=== PATIENT | female | born 1960 | race African-American/Black ===

== ENCOUNTER 2016-12-24 20:00 | Emergency (ER) | payer OTHER ==
[~2016-12-24] VITALS: Ht 175.3 cm; Wt 109.0 kg
[~2016-12-24 20:00] MED LIST: ALDACTONE25 MG PO; ASPIRIN81 MG PO; B12-ACTIVE1 MG PO; BABY ASPIRIN81 MG OR; BACTRIM DS1 TAB PO; BIOTIN1000 MCG PO; BUMETANIDE2 MG IN; CARVEDILOL3.125 MG PO; CIPRO XR500 MG PO; COQ-1050 MG PO; COREG12.5 MG OR; COREG25 MG PO; COREG3.125 MG OR; CORLANOR5 MG PO; COZAAR50 MG OR; COZAAR50 MG PO; DIGITEK0.125 MG PO; ENALAPRIL2.5 MG OR; ENALAPRIL2.5 MG PO; FLAGYL500 MG PO; KLOR-CON 1010 ME1 OR; KLOR-CON M2020 MEQ OR; LACTULOS2 XX; LASIX40 MG OR; LASIX40 MG PO; LASIX80 MG OR; LEXAPRO10 MG PO; LOSARTAN POT50 MG PO; LOSARTAN POTASS25 MG PO; MAG OXIDE400 MG PO; METOLAZONE2.5 MG PO; METROGEL VAG0.75 % VA; METRONIDAZOL500 MG PO; NITROSTAT0.4 MG SL; NORCO1 TA1 PO; PREVACID15 M1 PO; PRILOSEC OTC20 MG OR; VITAMIN C500 M1 OR; XANAX0.25 MG OR; XANAX0.5 MG PO; ZOCOR20 MG OR; ZOCOR40 MG OR; ZOFRAN ODT4 MG PO; [UNRECOGNIZED DRUG - OTHER] OR; [UNRECOGNIZED DRUG - OTHER] OR; [UNRECOGNIZED DRUG - OTHER] PO
[2016-12-24 20:36] LABS: HEMATOCRIT 39.6 % (37.0-47.0); IMMATURE GRANULOCYTES 0.3 % (0.0-1.0); MEAN CORPUSCULAR HGB 29.9 pG CALC (26.0-32.0); MEAN CORPUSCULAR HGB CONC 32.8 g/L CALC (32.0-36.0); NEUT# 4.79 thou/uL (2.00-7.15); RED BLOOD COUNT 4.35 mill/uL (4.20-5.60); RED CELL DISTRI WIDTH 14.8 % (11.5-15.5)
[2016-12-24 20:45] LABS: ALBUMIN 4.3 g/dL (3.2-5.0); ALKALINE PHOSPHATASE 84 u/l (38-126); ANION GAP 17 (6-22 (CALC)); BILIRUBIN, TOTAL 0.5 mg/dL (0.0-1.4); BUN 15 mg/dL (7-17); BUN/CREATININE RATIO 17 (12-20 (CALC)); CALCIUM 9.2 mg/dL (8.4-10.2); CARBON DIOXIDE 27 mmol/l (22-30); CHLORIDE 104 mmol/l (95-108); CREATININE 0.9 mg/dL (0.5-1.0); GFR > 60 ML/MIN (>=60 (CALC)); GFR FOR AFR.AMER. > 60 ML/MIN (>=60 (CALC)); GLUCOSE 92 mg/dL (65-105); POTASSIUM 4.3 mmol/l (3.5-5.1); SGOT/AST 29 u/l (14-36); SGPT/ALT 37 u/l (9-52); SODIUM 143 mmol/l (137-146); TOTAL PROTEIN 8.1 g/dL (6.3-8.2)
[2016-12-24 20:57] LABS: MYOGLOBIN 21 ng/mL (0 - 62)
[2016-12-24 20:58] LABS: PROTHROMBIN TIME 11.3 SECONDS (9.0-12.5)
[2016-12-24 22:06] LABS: URINE BILIRUBIN - DIPSTICK NEGATIVE (NEGATIVE); URINE BLOOD DIPSTICK NEGATIVE (NEGATIVE); URINE CLARITY CLEAR; URINE COLOR YELLOW; URINE GLUCOSE - DIPSTICK NEGATIVE (NEGATIVE); URINE KETONE NEGATIVE (NEGATIVE); URINE LEUK ESTERASE NEGATIVE (NEGATIVE); URINE NITRITE - DIPSTICK NEGATIVE (Negative); URINE PH 5.5 (4.5-8.0); URINE PROTEIN - DIPSTICK NEGATIVE (NEG-TRACE); URINE SPECIFIC GRAVITY 1.025; URINE UROBILINOGEN - DIPSTICK 0.2 E.U./dL (0.2)
[2016-12-24] MEDS ORDERED: BUMETANIDE1 MG PO (22:42)
[2016-12-25 01:25] VITALS: BP 110/73
== END 2016-12-25 01:26 | disposition short-term general hospital (02) | DRG 69 ==
LOC: ED 20:00
DX: G45.9 Transient cerebral ischemic attack, unspecified (principal); I11.0 Hypertensive heart disease with heart failure; I50.9 Heart failure, unspecified; K21.9 Gastro-esophageal reflux disease without esophagitis; K44.9 Diaphragmatic hernia without obstruction or gangrene; F41.9 Anxiety disorder, unspecified; Z95.810 Presence of automatic (implantable) cardiac defibrillator

== ENCOUNTER 2017-02-23 19:53 | Emergency (ER) | payer OTHER ==
[~2017-02-23] VITALS: Ht 175.3 cm; Wt 106.0 kg
[~2017-02-23 19:53] MED LIST changes: +BUMETANIDE1 MG PO
[2017-02-23 20:25] VITALS: BP 106/55
== END 2017-02-23 20:25 | disposition home or self-care (01) | DRG 951 ==
LOC: ED 19:53
DX: Z20.818 Contact with and (suspected) exposure to other bacterial communicable diseases (principal); I11.0 Hypertensive heart disease with heart failure; I50.9 Heart failure, unspecified; K21.9 Gastro-esophageal reflux disease without esophagitis; K44.9 Diaphragmatic hernia without obstruction or gangrene; Z95.810 Presence of automatic (implantable) cardiac defibrillator

== ENCOUNTER 2017-10-18 13:17 | Inpatient (IN) | payer OTHER ==
[~2017-10-18] VITALS: Ht 175.3 cm; Wt 101.6 kg
--- NOTE | 2017-10-18 13:18 | NUR ---
PT REFUSED WHEELCHAIR AND AMBULATED TO ROOM WITH A STEADY GAIT.
[2017-10-18 14:13] LABS: HEMATOCRIT 38.9 % (37.0-47.0); HEMOGLOBIN 12.6 g/dl (12.0-16.0); IMMATURE GRANULOCYTES 0.3 % (0.0-1.0); MEAN CELL VOLUME 93.5 fL CALC (80.0-100.0); MEAN CORPUSCULAR HGB 30.3 pG CALC (26.0-32.0); MEAN CORPUSCULAR HGB CONC 32.4 g/L CALC (32.0-36.0); NEUT# 5.82 thou/uL (2.00-7.15); RED BLOOD COUNT 4.16 mill/uL (4.20-5.60); RED CELL DISTRI WIDTH 15.5 % (11.5-15.5)
--- NOTE | 2017-10-18 14:15 | NUR ---
JAGDISH spoke with regarding admission status d/t Afib RVR. CM asked if the patient will require any cardiac drips and denied any need at this time. CM advised OBS for the admission, to which voiced agreement.
[2017-10-18 14:22] LABS: ALBUMIN 3.9 g/dL (3.2-5.0); ANION GAP 18 (6-22 (CALC)); BILIRUBIN, TOTAL 0.6 mg/dL (0.0-1.4); BUN 24 mg/dL (7-17); BUN/CREATININE RATIO 27 (12-20 (CALC)); CARBON DIOXIDE 26 mmol/l (22-30); CHLORIDE 103 mmol/l (95-108); CREATININE 0.9 mg/dL (0.5-1.0); GFR > 60 ML/MIN (>=60 (CALC)); GFR FOR AFR.AMER. > 60 ML/MIN (>=60 (CALC)); POTASSIUM 3.8 mmol/l (3.5-5.1); SGPT/ALT 67 u/l (9-52); SODIUM 142 mmol/l (137-146); TOTAL PROTEIN 7.9 g/dL (6.3-8.2)
[2017-10-18 14:23] LABS: ALKALINE PHOSPHATASE 121 u/l (38-126); SGOT/AST 72 u/l (14-36)
--- NOTE | 2017-10-18 14:23 | NUR ---
PT PROVIDED CARDIZEM AND LOVENOX ORDERED, RATE IMPROVED TO 80-110 ALTHOUGH IT REMAINS AFIB.
[2017-10-18 14:33] LABS: MYOGLOBIN 26 ng/mL (0 - 62)
[2017-10-18] MEDS ORDERED: POT CHLORIDE10 ME5 PO (14:38)
--- NOTE | 2017-10-18 15:40 | NUR ---
DR COHEN IN TO SEE PT IN ROOM.
--- NOTE | 2017-10-18 17:10 | NUR ---
female pt received to med surg room 263 via wc accompanied by Willi Price, RN and grandson in stable condition; ambulatory to scale then bed with steady gait; admission assessment completed at this time; pt alert and oriented; c/c of right chest pain radiating to epigastric area then left chest associated with palpitations; pt admits to nausea, vomiting and diaphoreis; resp even and unlabored; exertional sob noted; lungs clear bilat; skin color wnl; ra; hr irreg; weak pedal pulses; 1+ edema noted to lle; tele monitor intact; abd soft with bs present; tenderness noted to epigastric area; no bm noted per life underwriter; pt admits to voiding without pain or burning; no urine to inspect at this time; bsc; #20 in lw saline locked; no redness or edema noted at site; skin intact; pt oriented to bed and call light system; plan of care/ meds explained; call light within reach; will continue to monitor
--- NOTE | 2017-10-18 17:10 | NUR ---
PT TAKEN TO ROOM 263 WITHOUT INCIDENT, REPORT WAS TO CHRISTINE.
--- NOTE | 2017-10-18 17:40 | NUR ---
per GEO Allen, tele reading afib/pvc 78 on monitor
[2017-10-18 18:05] VITALS: BP 104/74
[2017-10-18 19:35] VITALS: BP 112/71
--- NOTE | 2017-10-18 20:18 | NUR ---
PT SITTING ON BSC WITH FAMILY AT BEDSIDE. RESP EVEN AND UNLABORED. LUNGS CLEAR BILAT. TELE IN PLACE. ABD SOFT; ACTIVE BOWEL SOUNDS NOTED. +1 EDEMA LEFT LEG. PEDAL PULSES PALPATED BILAT. IV LW PATENT; FLUSHED WITHOUT DIFFICULTY. PT OFFERS NO COMPLAINTS. SAFETY PREACUTIONS REINFORCED. FREQUENT ROUNDS MADE; CALL LIGHT WITHIN REACH.
[2017-10-18 21:48] VITALS: BP 112/75
[2017-10-18 22:46] VITALS: BP 95/72
[2017-10-19] VITALS: BP 87/46
--- NOTE | 2017-10-19 00:30 | NUR ---
PT UP TO BSC. RESP EVEN AND UNLABORED. PT DENIES ANY PAIN OR DISCOMFORT. TELE IN PLACE. CALL LIGHT WITHIN REACH.
[2017-10-19 01:20] VITALS: BP 124/62
[2017-10-19 02:00] VITALS: BP 124/62
--- NOTE | 2017-10-19 04:30 | NUR ---
ASSESSMENT UNCHANGED. PT RESTING IN BED WATCHING TV. RESP EVEN AND UNLABORED. TELE IN PLACE. PT OFFERS NO COMPLAINTS AT THIS TIME. CALL LIGHT WITHIN REACH.
[2017-10-19 04:50] VITALS: BP 111/58
--- NOTE | 2017-10-19 07:00 | NUR ---
SHIFT CHANGE REPORT FROM ED PT AWAKE ALERT AND ORIENTED SITTING UP ON BSC, DENIES PAIN/DISCOMFORT AT THIS TIME, ALL NEEDS ADDRESSED, CALL THOMAS IN REACH.
[2017-10-19 07:56] LABS: HEMATOCRIT 39.4 % (37.0-47.0); HEMOGLOBIN 12.6 g/dl (12.0-16.0); IMMATURE GRANULOCYTES 0.3 % (0.0-1.0); MEAN CELL VOLUME 93.4 fL CALC (80.0-100.0); MEAN CORPUSCULAR HGB 29.9 pG CALC (26.0-32.0); NEUT# 4.18 thou/uL (2.00-7.15); RED BLOOD COUNT 4.22 mill/uL (4.20-5.60); RED CELL DISTRI WIDTH 15.3 % (11.5-15.5)
[2017-10-19 07:59] LABS: ANION GAP 15 (6-22 (CALC)); BUN 18 mg/dL (7-17); BUN/CREATININE RATIO 19 (12-20 (CALC)); CARBON DIOXIDE 32 mmol/l (22-30); CHLORIDE 98 mmol/l (95-108); CREATININE 0.9 mg/dL (0.5-1.0); GFR > 60 ML/MIN (>=60 (CALC)); GFR FOR AFR.AMER. > 60 ML/MIN (>=60 (CALC)); SODIUM 141 mmol/l (137-146)
[2017-10-19 08:01] LABS: MAGNESIUM 1.4 mg/dL (1.6-2.3)
[2017-10-19 08:55] VITALS: BP 98/60
--- NOTE | 2017-10-19 12:00 | NUR ---
PT RESTING IN BED, DR DAVID HERE ROUNDING AND INFORMED PT OF POC, PT STATED UNDERSTANDING. PT TRANSPORTED OFF UNIT FOR IMAGING PROCEDURE AND NOW BACK IN ROOM, INFORMED OF NEW MEDS, RESTING AGAIN, CALL THOMAS IN REACH.
[2017-10-19 15:56] VITALS: BP 89/57
--- NOTE | 2017-10-19 16:18 | NUR ---
RESTING/SLEEPING AT THIS TIME, WAS AWAKE MOST OF HS, WILL CONTINUE TO MONITOR.
--- NOTE | 2017-10-19 19:00 | NUR ---
REPORT RECEIVED FROM SELENA KING. PT ASLEEP, RESP EVEN AND UNLABORED. BED IN LOW POSITION, CALL LIGHT IN REACH.
--- NOTE | 2017-10-19 19:30 | NUR ---
PT AWAKE, SITTIN UP IN BED. DISCUSSED TIMES ON BUMEX ORDER. PT STATES SHE DOESN'T WANT UNTIL BEDTIME. CALL TO PHARMACY BY SELENA KING TO CHANGE TIMES TO 0900 AND 2100.
--- NOTE | 2017-10-19 19:58 | NUR ---
PT REQUESTED TO [facility] 2099 & 899, NITALISON
[2017-10-19 20:12] LABS: ALBUMIN 3.7 g/dL (3.2-5.0); BILIRUBIN, TOTAL 0.6 mg/dL (0.0-1.4); TOTAL PROTEIN 7.3 g/dL (6.3-8.2)
--- NOTE | 2017-10-19 21:03 | NUR ---
IV FLUSHED. PT STATES [facility] GOING IN. REQUESTED TO KEEP THIS IV. SALINE AND MED PUSHED SLOWLY. PT STATES THIS IS OK. PT ANTICIPATES GOING HOME TOMORROW AND DOES NOT WISH TO HAVE ANOTHER IV PLACED UNLESS COMPLETELY NECESSARY.
--- NOTE | 2017-10-20 | NUR ---
RECEIVED PRINTOUT FROM ER WITH ARRHYTHMIA EVENT FOR VTACH. WENT TO CHECK ON PATIENT, SITTING UP AT BEDSIDE WITH TRAY TABLE IN FRONT. SELENA JAMIL AND SELENA WHYTE WERE IN WITH PATIENT. BP 87/46 HR 69. PT STATES SHE LIVES IN THE ZONE WITH HER B/P AND IT IS FREQUENTLY LOW. SHE IS ALERT AND ORIENTED. DENIES PAIN OR PRESSURE. PT STATES SHE WILL GET BACK IN BED SHORTLY. CALL LIGHT IN REACH.
--- NOTE | 2017-10-20 01:51 | NUR ---
XANAX GIVEN PER MAR. PT UP STATES HER MIND IS RACING. REQUESTED AND GIVEN XANAX PER ORDER IN HOPES TO SLEEP.
--- NOTE | 2017-10-20 04:00 | NUR ---
VS AND FOCUS ASSESSMENT CHARTED. PT DENIES ANY NEEDS OR PAIN AT THIS TIME.
[2017-10-20 04:05] VITALS: BP 97/44
--- NOTE | 2017-10-20 05:00 | NUR ---
UPPER LEFT BEDRAIL DOWN DUE TO PATIENT REQUEST.
--- NOTE | 2017-10-20 07:00 | NUR ---
SHIFT CHANGE REPORT FROM MARINA, PT AWAKE ALERT AND ORIENTED, NO C/O DISCOMFORT, WANTS TO FIND OUT WHEN SHE WILL BE GOING HOME, ADVISED MD WILL ADDRESS HER CONCERNS WHEN HE GETS HERE, TELE MONITOR IN PLACE, WILL CONTINUE TO MONITOR.
--- NOTE | 2017-10-20 07:00 | NUR ---
REPORT TO NEXT SHIFT. PT ASLEEP, RESP EVEN/UNLABORED. CALL LIGHT IN REACH.
[2017-10-20 09:17] VITALS: BP 87/64
--- NOTE | 2017-10-20 10:53 | NUR ---
HERE ROUNDING, TOLD PT OF POC, WILL CONTINUE TO MONITOR.
[2017-10-20 11:45] VITALS: BP 102/66
--- NOTE | 2017-10-20 13:26 | NUR ---
SLEEPING AT THIS TIME, NO SIGN DISCOMFORT, CALL THOMAS IN REACH.
[2017-10-20 15:40] VITALS: BP 92/49
--- NOTE | 2017-10-20 19:00 | NUR ---
REPORT RECEIVED FROM SELENA KING. PT AWAKE, SITTING UP TALKING TO FAMILY AT BEDSIDE. CALL LIGHT IN REACH.
[2017-10-20 19:15] VITALS: BP 89/60
--- NOTE | 2017-10-20 20:30 | NUR ---
DUE TO B/P, HELD COREG AND AMIODARONE AT THIS TIME.
[2017-10-21 00:10] VITALS: BP 85/52
--- NOTE | 2017-10-21 00:13 | NUR ---
DUE TO HYPOTENSION, COREG AND AMIODARONE HELD FOR 2100 MEDS TO STAGGER AND REEVALUATE. MIDNIGHT BP STILL HYPOTENSIVE WITH PT STILL AFIB/PACED AT 72 PER FLAGMAN. PT GIVEN AMIODARONE AT THIS TIME STILL HOLDING COREG. PT STATED PREVIOUSLY SHE FELT LIKE HER HEART WAS NOT KEEPING UP. SHE WAS UNSURE HOW TO EXPLAIN BUT STATED SHE COULD FEEL THE DIFFERENCE TODAY.
[2017-10-21 04:15] VITALS: BP 103/59
[2017-10-21 05:23] LABS: HEMATOCRIT 42.8 % (37.0-47.0); HEMOGLOBIN 13.3 g/dl (12.0-16.0); IMMATURE GRANULOCYTES 0.5 % (0.0-1.0); MEAN CELL VOLUME 96.2 fL CALC (80.0-100.0); MEAN CORPUSCULAR HGB 29.9 pG CALC (26.0-32.0); MEAN CORPUSCULAR HGB CONC 31.1 g/L CALC (32.0-36.0); NEUT# 6.72 thou/uL (2.00-7.15); RED BLOOD COUNT 4.45 mill/uL (4.20-5.60); RED CELL DISTRI WIDTH 15.4 % (11.5-15.5)
[2017-10-21 05:37] LABS: BILIRUBIN, TOTAL 0.6 mg/dL (0.0-1.4); CREATININE 1.3 mg/dL (0.5-1.0); MAGNESIUM 1.5 mg/dL (1.6-2.3); POTASSIUM 4.1 mmol/l (3.5-5.1); TOTAL PROTEIN 7.9 g/dL (6.3-8.2)
--- NOTE | 2017-10-21 06:23 | NUR ---
ENTERED ROOM TO FLUSH IV. PT DROWSY BUT AWAKE. STATES SHE IS GETTING SOME REST. DENIES PAIN/NEEDS AT THIS TIME.
--- NOTE | 2017-10-21 07:01 | NUR ---
BEDSIDE REPORT RECEIVED BY AMIRA. PT IS RESTING ON HER LEFT SIDE. PT DENIES NEEDS AT THIS TIME. CALL LIGHT IN REACH.
--- NOTE | 2017-10-21 08:00 | NUR ---
ASSESSMENT DONE AND TELE IN PLACE . RESPS EVEN AND UNLABORED. #22 LFA THAT APPEARS HEALTHY. PT DENIES PAIN AT THIS TIME. PT STATED THAT SHE JUST FEELS WEAK. SAFETY PRECAUTIONS REINFORCED ROSSI CALL LIGHT IN REACH.
--- NOTE | 2017-10-21 08:30 | NUR ---
NOTIFIED LIO ABOUT PT BP 90/51 AND IF SHE WANTED FOR ME TO GIVE COREG. SHE STATED TO RECHECK PT BP IN HOUR.
[2017-10-21 10:46] VITALS: BP 90/48
--- NOTE | 2017-10-21 11:29 | NUR ---
RECHECK PT BP 90/48 AND BARBIE BECERRA STATED TO GIVE COREG TO PT.
--- NOTE | 2017-10-21 12:00 | NUR ---
PT IS SITTING IN THE SIDE OF THE BED EATING HER LUNCH AND VISITING WITH FAMILY IN ROOM. PT DENIES NEEDS AT THIS TIME. CALL LIGHT IN REACH.
[2017-10-21 12:04] VITALS: BP 101/45
[2017-10-21 15:42] VITALS: BP 88/38
--- NOTE | 2017-10-21 16:00 | NUR ---
PT IS SITTING IN THE SIDE OF THE BED WITH NO S/S OF DISTRESS. PT DENIES PAIN. PT STATED THAT SHE JUST FEELS TIRED AND WEAK. PT DENIES ANY NEEDS AT THIS TIME. CALL LIGHT IN REACH.
--- NOTE | 2017-10-21 19:00 | NUR ---
RECEIVED CHANGE OF SHIFT REPORT FROM SELENA LEA. PATIENT ALERT AND ORIENTED AND LYING IN BED. GOOD AFFECT. DENIES PAIN. LUNG SOUNDS CLEAR BILATERALLY ON AUSCULTATION. NO APPARENT ACUTE DISTRESS OR DISCOMFORT NOTED. WILL CONTINUE TO MONITOR.
[2017-10-21 20:45] VITALS: BP 100/59
--- NOTE | 2017-10-21 22:30 | NUR ---
PT REQUESTED NOT TO BE AWAKEN AT MIDNIGHT FOR VS.
--- NOTE | 2017-10-22 | NUR ---
PATIENT RESTING QUIETLY WITH EYES CLOSED AND APPEARS TO BE ASLEEP. NO APPARENT ACUTE DISTRESS NOTED.
--- NOTE | 2017-10-22 04:00 | NUR ---
PT SLEPT WELL DURING THE NIGHT. NO VOICED COMPLAINTS. NO APPARENT ACUTE CHANGES NOTED IN PT'S CONDITION. WILL CONTINUE TO MONITOR.
[2017-10-22 04:45] LABS: HEMATOCRIT 40.8 % (37.0-47.0); HEMOGLOBIN 13.1 g/dl (12.0-16.0); MEAN CELL VOLUME 94.4 fL CALC (80.0-100.0); MEAN CORPUSCULAR HGB 30.3 pG CALC (26.0-32.0); MEAN CORPUSCULAR HGB CONC 32.1 g/L CALC (32.0-36.0); RED BLOOD COUNT 4.32 mill/uL (4.20-5.60); RED CELL DISTRI WIDTH 15.3 % (11.5-15.5)
[2017-10-22 05:01] LABS: ANION GAP 15 (6-22 (CALC)); BUN 21 mg/dL (7-17); BUN/CREATININE RATIO 22 (12-20 (CALC)); CARBON DIOXIDE 32 mmol/l (22-30); CHLORIDE 97 mmol/l (95-108); GFR 57 ML/MIN (>=60 (CALC)); GFR FOR AFR.AMER. > 60 ML/MIN (>=60 (CALC)); POTASSIUM 3.8 mmol/l (3.5-5.1); SODIUM 141 mmol/l (137-146)
[2017-10-22 05:06] LABS: MAGNESIUM 2.2 mg/dL (1.6-2.3)
[2017-10-22 05:50] VITALS: BP 98/50
--- NOTE | 2017-10-22 07:24 | NUR ---
REPORT RECEIVED FROM SELENA PADRON. PT SITTING UPRIGHT IN BED. DENIES PAIN. REPORTS ANXIETY. MEDICATIONS REVIEWED. PLAN OF CARE DISCUSSED. REPORTING OF CONCERNS ENCOURAGED. CALL LIGHT REVIEWED AND IN REACH. PT STATES UNDERSTANDING.
[2017-10-22 07:26] VITALS: BP 86/61
--- NOTE | 2017-10-22 10:02 | NUR ---
TRANSFER TO [facility] INITIATED AT THIS TIME PER DR. ROCHA'S ORDER. SPOKE WITH SELENA LOVELACE AND SELENA JASSO. ACCEPTING PHYSICIAN DR. REED. FACE SHEET FAXED TO [facility] AT [phone].
--- NOTE | 2017-10-22 10:27 | NUR ---
PT REFUSING BUMEX AT THIS TIME. REQUESTING TO RECEIVED MED AT 1800. PHARMACY NOTIFIED.
--- NOTE | 2017-10-22 10:29 | NUR ---
DR. ROCHA IN TO SEE PT.
[2017-10-22 12:23] VITALS: BP 92/58
--- NOTE | 2017-10-22 12:48 | NUR ---
PT SITTING UPRIGHT IN BED. MULTIPLE VISITORS IN AND OUT OF ROOM. PT UPDATED REGARDING TRANSFER AND AWAITING BED ASSIGNMENT.
--- NOTE | 2017-10-22 13:35 | NUR ---
PT VOMITING IN TRASH CAN, NOTIFIED BY PT'S FAMILY MEMBER. ZOFRAN ADMINISTERED IV. WILL MONITOR FOR EFFECTIVENESS.
--- NOTE | 2017-10-22 15:00 | NUR ---
PT REPORTS RELIEF OF NAUSEA.
[2017-10-22 15:46] VITALS: BP 94/64
--- NOTE | 2017-10-22 17:47 | NUR ---
NO COMPLAINTS AT THIS TIME. BUMEX IV ADMINISTERED. FALL PRECAUTIONS REINFORCED. PT STATES UNDERSTANDING.
--- NOTE | 2017-10-22 18:33 | NUR ---
BED ASSIGNMENT RECEIVED FROM SELENA JASSO AT [facility]. [address]. NUMBER FOR REPORT IS [phone].
--- NOTE | 2017-10-22 18:34 | NUR ---
SPOKE WITH NASREEN AT [facility] TRANSPORT. ESTIMATED TIME OF HAND TURNER IS 1854.
--- NOTE | 2017-10-22 19:08 | NUR ---
PT LEFT FLOOR VIA STRETCHER ACCOMPANIED BY [facility]SP[facility] X 2 STAFF MEMBERS.
--- NOTE | 2017-10-22 19:24 | NUR ---
REPORT CALLED TO SELENA BERTRAND AT [facility].
== END 2017-10-22 19:08 | disposition short-term general hospital (02) | DRG 308 ==
LOC: ED 13:17 → ED-I 13:52 → ED 15:17 → MS2 15:18
PROVIDERS: Emergency Medicine; Internal Medicine; Nurse Practitioner Family; ADMIT Internal Medicine; ATTEND Internal Medicine
DX: I48.91 Unspecified atrial fibrillation (principal); I50.23 Acute on chronic systolic (congestive) heart failure; N17.9 Acute kidney failure, unspecified; I42.0 Dilated cardiomyopathy; R16.0 Hepatomegaly, not elsewhere classified; I95.9 Hypotension, unspecified; E83.42 Hypomagnesemia; F32.9 Major depressive disorder, single episode, unspecified; E11.9 Type 2 diabetes mellitus without complications; G47.30 Sleep apnea, unspecified; E66.9 Obesity, unspecified; K64.8 Other hemorrhoids; K59.00 Constipation, unspecified; Z95.810 Presence of automatic (implantable) cardiac defibrillator; Z86.73 Personal history of transient ischemic attack (TIA), and cerebral infarction without residual deficits; Z68.32 Body mass index [BMI] 32.0-32.9, adult
CPT/HCPCS: J1160; J1650; J3475

== ENCOUNTER 2018-07-30 15:27 | Emergency (ER) | payer OTHER ==
[~2018-07-30] VITALS: Ht 175.3 cm; Wt 100.0 kg
[~2018-07-30 15:27] MED LIST changes: +ELIQUIS5 MG PO; +LIPITOR20 M1 PO; +MIRALAX3350 N1 PO; +POT CHLORIDE10 ME5 PO; +ZOLOFT50 MG PO
[2018-07-30] MEDS ORDERED: EMLA CREAM5 GM/TUBE EX (16:30)
[2018-07-30] MEDS ORDERED: PROCTOCARE2.5 % RE (16:30)
[2018-07-30] MEDS ORDERED: BACTRIM DS1 TAB PO (16:30)
[2018-07-30 16:45] VITALS: BP 151/88
== END 2018-07-30 17:13 | disposition home or self-care (01) | DRG 395 ==
LOC: ED 15:27
DX: K64.4 Residual hemorrhoidal skin tags (principal); L72.0 Epidermal cyst; I11.0 Hypertensive heart disease with heart failure; I50.9 Heart failure, unspecified; Z86.73 Personal history of transient ischemic attack (TIA), and cerebral infarction without residual deficits; K21.9 Gastro-esophageal reflux disease without esophagitis; Z95.810 Presence of automatic (implantable) cardiac defibrillator

== ENCOUNTER → 2018-08-15 | Outpatient (REF) | payer OTHER ==
[~2018-08-15] MED LIST changes: +EMLA CREAM5 GM/TUBE EX; +KLOR-CON M2020 MEQ PO; +PEPCID20 MG PO; +PHENERGAN25 MG/TAB PO; +PROCTOCARE2.5 % RE; +XANAX0.25 MG PO; +ZOFRAN4 M1 PO
[2018-08-15 04:32] LABS: HEMATOCRIT 42.5 % (37.0-47.0); HEMOGLOBIN 13.6 g/dl (12.0-16.0); IMMATURE GRANULOCYTES 0.2 % (0.0-5.0); MEAN CELL VOLUME 98.8 fL CALC (80.0-100.0); MEAN CORPUSCULAR HGB 31.6 pG CALC (26.0-32.0); NEUT# 6.05 thou/uL (2.00-7.15); RED BLOOD COUNT 4.3 mill/uL (4.20-5.60); RED CELL DISTRI WIDTH 15.2 % (11.5-15.5)
[2018-08-15 04:40] LABS: ALBUMIN 3.7 g/dL (3.2-5.0); ALKALINE PHOSPHATASE 94 u/l (38-126); ANION GAP 13 (6-22 (CALC)); BILIRUBIN, TOTAL 1.1 mg/dL (0.0-1.4); BUN 20 mg/dL (7-17); BUN/CREATININE RATIO 19 (12-20 (CALC)); CARBON DIOXIDE 30 mmol/l (22-30); CHLORIDE 101 mmol/l (95-108); CREATININE 1.1 mg/dL (0.5-1.0); GFR 51 ML/MIN (>=60 (CALC)); GFR FOR AFR.AMER. > 60 ML/MIN (>=60 (CALC)); POTASSIUM 3.6 mmol/l (3.5-5.1); SGOT/AST 32 u/l (14-36); SODIUM 141 mmol/l (137-146); TOTAL PROTEIN 7.4 g/dL (6.3-8.2)
== END | disposition home or self-care (01) | DRG 395 ==
LOC: LABSPEC 03:48
PROVIDERS: ATTEND Internal Medicine
DX: K64.9 Unspecified hemorrhoids (principal)

== ENCOUNTER 2018-08-21 22:09 | Emergency (ER) | payer OTHER ==
[~2018-08-21] VITALS: Ht 175.3 cm; Wt 98.0 kg
[~2018-08-21 22:09] MED LIST changes: -KLOR-CON M2020 MEQ PO; -PEPCID20 MG PO; -PHENERGAN25 MG/TAB PO; -XANAX0.25 MG PO; -ZOFRAN4 M1 PO
[2018-08-21 22:57] LABS: HEMATOCRIT 40.4 % (37.0-47.0); HEMOGLOBIN 13.1 g/dl (12.0-16.0); IMMATURE GRANULOCYTES 0.3 % (0.0-5.0); MEAN CELL VOLUME 96.9 fL CALC (80.0-100.0); MEAN CORPUSCULAR HGB 31.4 pG CALC (26.0-32.0); MEAN CORPUSCULAR HGB CONC 32.4 g/L CALC (32.0-36.0); NEUT# 4.48 thou/uL (2.00-7.15); RED BLOOD COUNT 4.17 mill/uL (4.20-5.60); RED CELL DISTRI WIDTH 14.8 % (11.5-15.5)
[2018-08-21 23:14] LABS: AMYLASE 50 u/l (30-110); LIPASE 69 u/l (23-300)
[2018-08-21 23:16] LABS: ALKALINE PHOSPHATASE 101 u/l (38-126); ANION GAP 16 (6-22 (CALC)); BILIRUBIN, TOTAL 1.1 mg/dL (0.0-1.4); BUN 20 mg/dL (7-17); BUN/CREATININE RATIO 20 (12-20 (CALC)); CARBON DIOXIDE 27 mmol/l (22-30); CHLORIDE 100 mmol/l (95-108); GFR 57 ML/MIN (>=60 (CALC)); GFR FOR AFR.AMER. > 60 ML/MIN (>=60 (CALC)); MAGNESIUM 1.7 mg/dL (1.6-2.3); POTASSIUM 3.7 mmol/l (3.5-5.1); SGOT/AST 55 u/l (14-36); SODIUM 139 mmol/l (137-146); TOTAL PROTEIN 7.5 g/dL (6.3-8.2)
[2018-08-21 23:27] LABS: MYOGLOBIN 39 ng/mL (0 - 62)
[2018-08-22] MEDS ORDERED: BUMETANIDE1 MG PO (00:44)
[2018-08-22] MEDS ORDERED: XANAX0.25 MG PO (00:44)
[2018-08-22] MEDS ORDERED: ZOFRAN4 M1 PO (00:46)
[2018-08-22] MEDS ORDERED: PHENERGAN25 MG/TAB PO (01:08)
[2018-08-22 02:00] VITALS: BP 101/69
[2018-08-22] MEDS ORDERED: KLOR-CON M2020 MEQ PO (09:35)
[2018-08-22] MEDS ORDERED: PEPCID20 MG PO (09:35)
[2018-08-22] MEDS ORDERED: LIPITOR20 M1 PO (09:35)
== END 2018-08-22 02:00 | disposition home or self-care (01) | DRG 293 ==
LOC: ED 22:09
PROVIDERS: Family Medicine
DX: I11.0 Hypertensive heart disease with heart failure (principal); I50.810 Right heart failure, unspecified; I42.8 Other cardiomyopathies; K21.9 Gastro-esophageal reflux disease without esophagitis; Z95.810 Presence of automatic (implantable) cardiac defibrillator; Z86.73 Personal history of transient ischemic attack (TIA), and cerebral infarction without residual deficits

== ENCOUNTER → 2018-08-22 | Outpatient (REF) | payer OTHER ==
[~2018-08-22] MED LIST changes: +KLOR-CON M2020 MEQ PO; +PEPCID20 MG PO; +PHENERGAN25 MG/TAB PO; +XANAX0.25 MG PO; +ZOFRAN4 M1 PO
[2018-08-22 09:28] VITALS: BP 105/61
== END | disposition home or self-care (01) | DRG 395 ==
LOC: FIOURUCCI 09:08 → FIORUCCI 09:08 → FIOURUCCI 09:30
PROVIDERS: ATTEND Surgery
DX: K64.8 Other hemorrhoids (principal); R14.0 Abdominal distension (gaseous); I10 Essential (primary) hypertension; Z95.810 Presence of automatic (implantable) cardiac defibrillator

== ENCOUNTER 2018-09-02 07:00 | Emergency (ER) | payer OTHER ==
[~2018-09-02] VITALS: Ht 175.3 cm; Wt 100.0 kg
[2018-09-02 07:32] LABS: GFR 42 ML/MIN (>=60 (CALC)); GFR FOR AFR.AMER. 51 ML/MIN (>=60 (CALC))
[2018-09-02 07:47] LABS: HEMATOCRIT 43.5 % (37.0-47.0); HEMOGLOBIN 13.6 g/dl (12.0-16.0); IMMATURE GRANULOCYTES 0.4 % (0.0-5.0); MEAN CELL VOLUME 97.8 fL CALC (80.0-100.0); MEAN CORPUSCULAR HGB 30.6 pG CALC (26.0-32.0); MEAN CORPUSCULAR HGB CONC 31.3 g/L CALC (32.0-36.0); NEUT# 5.13 thou/uL (2.00-7.15); RED BLOOD COUNT 4.45 mill/uL (4.20-5.60); RED CELL DISTRI WIDTH 14.6 % (11.5-15.5)
[2018-09-02 07:51] LABS: ALBUMIN 4.2 g/dL (3.2-5.0); ALKALINE PHOSPHATASE 106 u/l (38-126); ANION GAP 15 (6-22 (CALC)); BILIRUBIN, TOTAL 1.4 mg/dL (0.0-1.4); BUN 25 mg/dL (7-17); BUN/CREATININE RATIO 20 (12-20 (CALC)); CARBON DIOXIDE 29 mmol/l (22-30); CHLORIDE 99 mmol/l (95-108); CREATININE 1.2 mg/dL (0.5-1.0); LIPASE 58 u/l (23-300); POTASSIUM 3.9 mmol/l (3.5-5.1); SGOT/AST 41 u/l (14-36); SODIUM 139 mmol/l (137-146); TOTAL PROTEIN 7.9 g/dL (6.3-8.2)
[2018-09-02 10:31] VITALS: BP 103/56
== END 2018-09-02 10:27 | disposition short-term general hospital (02) | DRG 293 ==
LOC: ED 07:00
PROVIDERS: Family Medicine
DX: I11.0 Hypertensive heart disease with heart failure (principal); I50.9 Heart failure, unspecified; R10.11 Right upper quadrant pain; Z86.73 Personal history of transient ischemic attack (TIA), and cerebral infarction without residual deficits; Z95.810 Presence of automatic (implantable) cardiac defibrillator
CPT/HCPCS: Q9967; S0164

== ENCOUNTER → 2018-09-11 | Outpatient (REF) | payer OTHER ==
[2018-09-11 22:40] LABS: ALBUMIN 4.6 g/dL (3.2-5.0); BILIRUBIN, TOTAL 1.1 mg/dL (0.0-1.4); CREATININE 1.2 mg/dL (0.5-1.0); POTASSIUM 4.1 mmol/l (3.5-5.1)
== END | disposition home or self-care (01) | DRG 293 ==
LOC: LABREF 21:43
PROVIDERS: ATTEND Nurse Practitioner Adult Health
DX: I50.42 Chronic combined systolic (congestive) and diastolic (congestive) heart failure (principal); N18.9 Chronic kidney disease, unspecified; Z51.81 Encounter for therapeutic drug level monitoring

== ENCOUNTER → 2018-09-11 | Outpatient (REF) ==
[2018-09-11 22:39] LABS: CHOLESTEROL HDL RATIO 3.9 (<4.4 (CALC))
== END | disposition home or self-care (01) | DRG 951 ==
LOC: LAB 21:39
PROVIDERS: ATTEND Family Medicine
DX: Z02.6 Encounter for examination for insurance purposes (principal)

== ENCOUNTER 2019-01-22 08:18 | Day surgery (SDC) | payer OTHER ==
[~2019-01-22 08:18] MED LIST changes: +CARVEDILOL6.25 MG PO; +ENTRESTO 24-261 TAB PO; +MIDODRINE HYDR2.5 MG PO; +PROTONIX40 M2 PO
[2019-01-22] MEDS ORDERED: PERCOCET 5/325M1 TAB PO (13:19)
[2019-01-22 13:48] VITALS: BP 98/48
== END 2019-01-22 14:30 | disposition home or self-care (01) | DRG 348 ==
LOC: ENDO 08:18 → ORM 11:30 → ENDO 11:30
PROVIDERS: ATTEND Surgery
PROC: 06BY3ZC Excision of Hemorrhoidal Plexus, Percutaneous Approach (ICD-10-PCS; principal; 2019-01-22)
PROC: 0DBH8ZX Excision of Cecum, Via Natural or Artificial Opening Endoscopic, Diagnostic (ICD-10-PCS; 2019-01-22)
PROC: 0DJ08ZZ Inspection of Upper Intestinal Tract, Via Natural or Artificial Opening Endoscopic (ICD-10-PCS; 2019-01-22)
DX: K64.8 Other hemorrhoids (principal); Q43.8 Other specified congenital malformations of intestine; D12.0 Benign neoplasm of cecum; K57.30 Diverticulosis of large intestine without perforation or abscess without bleeding; K29.70 Gastritis, unspecified, without bleeding; K44.9 Diaphragmatic hernia without obstruction or gangrene; I11.0 Hypertensive heart disease with heart failure; I50.9 Heart failure, unspecified; Z95.0 Presence of cardiac pacemaker
CPT/HCPCS: C9290; J0131; J1100

== ENCOUNTER 2019-01-28 19:18 | Emergency (ER) | payer OTHER ==
[~2019-01-28] VITALS: Ht 175.3 cm; Wt 90.0 kg
[~2019-01-28 19:18] MED LIST changes: +PERCOCET 5/325M1 TAB PO
[2019-01-28 20:03] LABS: HEMATOCRIT 38.2 % (37.0-47.0); HEMOGLOBIN 12.2 g/dl (12.0-16.0); IMMATURE GRANULOCYTES 0.3 % (0.0-5.0); MEAN CELL VOLUME 95.5 fL CALC (80.0-100.0); MEAN CORPUSCULAR HGB 30.5 pG CALC (26.0-32.0); MEAN CORPUSCULAR HGB CONC 31.9 g/L CALC (32.0-36.0); NEUT# 5.1 thou/uL (2.00-7.15); RED CELL DISTRI WIDTH 14.3 % (11.5-15.5)
[2019-01-28 20:13] LABS: URINE BILIRUBIN - DIPSTICK NEGATIVE (NEGATIVE); URINE BLOOD DIPSTICK MODERATE (NEGATIVE); URINE COLOR YELLOW; URINE GLUCOSE - DIPSTICK NEGATIVE (NEGATIVE); URINE KETONE NEGATIVE (NEGATIVE); URINE LEUK ESTERASE NEGATIVE (NEGATIVE); URINE NITRITE - DIPSTICK NEGATIVE (Negative); URINE PROTEIN - DIPSTICK NEGATIVE (NEG-TRACE); URINE UROBILINOGEN - DIPSTICK 0.2 E.U./dL (0.2)
[2019-01-28 20:20] LABS: ALBUMIN 4.1 g/dL (3.2-5.0); ALKALINE PHOSPHATASE 91 u/l (38-126); AMYLASE 85 u/l (30-110); BUN 28 mg/dL (7-17); BUN/CREATININE RATIO 14 (12-20 (CALC)); CHLORIDE 104 mmol/l (95-108); GFR 25 ML/MIN (>=60 (CALC)); GFR FOR AFR.AMER. 31 ML/MIN (>=60 (CALC)); LIPASE 48 u/l (23-300); POTASSIUM 4.2 mmol/l (3.5-5.1); SGOT/AST 30 u/l (14-36); SODIUM 141 mmol/l (137-146); TOTAL PROTEIN 7.8 g/dL (6.3-8.2)
[2019-01-28 20:22] LABS: ANION GAP 16 (6-22 (CALC)); BILIRUBIN, TOTAL 1.1 mg/dL (0.0-1.4); CARBON DIOXIDE 25 mmol/l (22-30)
[2019-01-28 20:23] LABS: URINE SQUAMOUS EPITHELIAL CELL FEW EPI/hpf (0-FEW)
[2019-01-28 20:31] LABS: MYOGLOBIN 48 ng/mL (0 - 62)
[2019-01-28] MEDS ORDERED: ONDANSETRON4 MG PO (22:15)
[2019-01-28] MEDS ORDERED: CEPHALEXIN500 M1 PO (22:15)
[2019-01-28 22:22] VITALS: BP 97/56
== END 2019-01-28 22:46 | disposition home or self-care (01) | DRG 690 ==
LOC: ED 19:18
PROVIDERS: Emergency Medicine
PROC: 0T9B70Z Drainage of Bladder with Drainage Device, Via Natural or Artificial Opening (ICD-10-PCS; principal; 2019-01-28)
DX: N39.0 Urinary tract infection, site not specified (principal); K62.5 Hemorrhage of anus and rectum; I11.0 Hypertensive heart disease with heart failure; I50.9 Heart failure, unspecified; Z86.73 Personal history of transient ischemic attack (TIA), and cerebral infarction without residual deficits

== ENCOUNTER 2019-01-30 00:06 | Emergency (ER) | payer OTHER ==
[~2019-01-30] VITALS: Ht 175.3 cm; Wt 90.0 kg
[~2019-01-30 00:06] MED LIST changes: +CEPHALEXIN500 M1 PO; +ONDANSETRON4 MG PO
[2019-01-30 01:06] VITALS: BP 120/76
== END 2019-01-30 01:30 | disposition home or self-care (01) | DRG 690 ==
LOC: ED 00:06
PROC: 0T9B70Z Drainage of Bladder with Drainage Device, Via Natural or Artificial Opening (ICD-10-PCS; principal; 2019-01-30)
DX: N39.0 Urinary tract infection, site not specified (principal); R33.9 Retention of urine, unspecified; I11.0 Hypertensive heart disease with heart failure; I50.9 Heart failure, unspecified; Z86.73 Personal history of transient ischemic attack (TIA), and cerebral infarction without residual deficits

== ENCOUNTER 2019-01-31 14:49 | Emergency (ER) | payer OTHER ==
[~2019-01-31] VITALS: Ht 175.3 cm; Wt 91.8 kg
[2019-01-31 15:59] VITALS: BP 119/62
== END 2019-01-31 16:12 | disposition home or self-care (01) | DRG 696 ==
LOC: ED 14:49
PROC: 0T9B70Z Drainage of Bladder with Drainage Device, Via Natural or Artificial Opening (ICD-10-PCS; principal; 2019-01-31)
DX: R33.9 Retention of urine, unspecified (principal); I11.0 Hypertensive heart disease with heart failure; I50.9 Heart failure, unspecified; Z86.73 Personal history of transient ischemic attack (TIA), and cerebral infarction without residual deficits; Z98.890 Other specified postprocedural states

== ENCOUNTER 2019-08-12 | Emergency (ER) | payer OTHER ==
[2019-08-12 10:32] LABS: HEMATOCRIT 41.9 % (37.0-47.0); HEMOGLOBIN 13.7 g/dl (12.0-16.0); IMMATURE GRANULOCYTES 0.1 % (0.0-5.0); MEAN CELL VOLUME 93.9 fL CALC (80.0-100.0); MEAN CORPUSCULAR HGB 30.7 pG CALC (26.0-32.0); MEAN CORPUSCULAR HGB CONC 32.7 g/L CALC (32.0-36.0); NEUT# 5.49 thou/uL (2.00-7.15); RED BLOOD COUNT 4.46 mill/uL (4.20-5.60); RED CELL DISTRI WIDTH 14.4 % (11.5-15.5)
[2019-08-12 10:54] LABS: ANION GAP 14 (6-22 (CALC)); BUN 29 mg/dL (8-23); BUN/CREATININE RATIO 26 (12-20 (CALC)); CARBON DIOXIDE 31 mmol/l (22-30); CHLORIDE 97 mmol/l (95-108); CREATININE 1.1 mg/dL (0.5-1.0); GFR 50 ML/MIN (>=60 (CALC)); GFR FOR AFR.AMER. > 60 ML/MIN (>=60 (CALC)); POTASSIUM 3.4 mmol/l (3.5-5.1); SODIUM 138 mmol/l (137-146)
[2019-08-12] MEDS ORDERED: PEPCID20 MG PO (12:02)
== END 2019-08-12 12:13 | disposition home or self-care (01) | DRG 313 ==
PROVIDERS: Family Medicine
DX: R07.9 Chest pain, unspecified (principal); I11.0 Hypertensive heart disease with heart failure; I50.9 Heart failure, unspecified; Z86.73 Personal history of transient ischemic attack (TIA), and cerebral infarction without residual deficits; Z95.810 Presence of automatic (implantable) cardiac defibrillator
CPT/HCPCS: Q9967

== ENCOUNTER 2019-10-29 20:16 | Observation (INO) | payer OTHER ==
[~2019-10-29] VITALS: Ht 175.3 cm; Wt 95.6 kg
--- NOTE | 2019-10-29 20:18 | NUR ---
PT AMBULATED TO ROOM 12-PT REFUSED WHEELCHAIR
--- NOTE | 2019-10-29 20:45 | NUR ---
PT SITTING IN HIGH FOWLERS. C/O MOVING PRESSURE IN EPIGASTRIC AREA...GAS BUILDS UP AND THEN SHE BURPS AND IT SETTLES MOMENTARILY AND THEN BUILDS UP AGAIN. A/O PWD. RESP NORMAL FOR PT. LUNGS CLEAR. PEDAL EDEMA PRESENT. VSS.
--- NOTE | 2019-10-29 21:04 | NUR ---
IV STARTED AND BLOOD DRAWN AFTER MULTIPLE ATTEMPTS BY SEVERAL STAFF.
[2019-10-29 21:11] LABS: HEMATOCRIT 38.8 % (37.0-47.0); HEMOGLOBIN 12.6 g/dl (12.0-16.0); IMMATURE GRANULOCYTES 0.3 % (0.0-5.0); MEAN CORPUSCULAR HGB 30.2 pG CALC (26.0-32.0); MEAN CORPUSCULAR HGB CONC 32.5 g/dL CAL (32.0-36.0); NEUT# 6.59 thou/uL (2.00-7.15); RED BLOOD COUNT 4.17 mill/uL (4.20-5.60); RED CELL DISTRI WIDTH 15.7 % (11.5-15.5)
[2019-10-29 21:27] LABS: ALBUMIN 4.1 g/dL (3.2-5.0); ALKALINE PHOSPHATASE 93 u/l (38-126); BUN 32 mg/dL (8-23); BUN/CREATININE RATIO 28 (12-20 (CALC)); CHLORIDE 99 mmol/l (95-108); CREATININE 1.1 mg/dL (0.5-1.0); GFR 50 ML/MIN (>=60 (CALC)); GFR FOR AFR.AMER. > 60 ML/MIN (>=60 (CALC)); LIPASE 37 u/l (23-300); POTASSIUM 3.7 mmol/l (3.5-5.1); SGOT/AST 34 u/l (9-36); SODIUM 137 mmol/l (137-146); TOTAL PROTEIN 8.2 g/dL (6.3-8.2)
[2019-10-29 21:28] LABS: ANION GAP 15 (6-22 (CALC)); BILIRUBIN, TOTAL 1.7 mg/dL (0.0-1.4); CARBON DIOXIDE 27 mmol/l (22-30)
--- NOTE | 2019-10-29 21:30 | NUR ---
NO RELIEF WITH MAGIC MOUTHWASH. NOTIFIED.
[2019-10-29 21:39] LABS: MYOGLOBIN 25 ng/mL (0 - 62)
--- NOTE | 2019-10-29 22:10 | NUR ---
NO CHANGE IN CONDITION AFTER NITRO SL/PASTE.
--- NOTE | 2019-10-29 22:39 | NUR ---
AT BEDSIDE TO DISCUSS ADMISSION.
--- NOTE | 2019-10-29 23:17 | NUR ---
REPORT TO KACIE/MED-SURG. BRING UP IN 15 MINUTES.
--- NOTE | 2019-10-29 23:30 | NUR ---
PT TO FLOOR VIA W/C WITH POCKET MONITOR. AMBULATORY TO BED.
[2019-10-29 23:45] VITALS: BP 109/75
--- NOTE | 2019-10-30 00:15 | NUR ---
[id number]- PT. ARRIVED TO THE FLOOR VIA W/C ACCOMPANIED BY ER NURSE, SELENA VILLAFUERTE. PT. IS A/A/O AND EDCUATED AIR PURIFIER SERVICER LIGHT, ROOM, AND POC; VERBALIZES UNDERSTANDING. NITRO PASTE NOTED TO LEFT CHEST WALL APPLIED IN ED. TELEMETRY IN PLACE. PT. C/O EPIGASTRIC PAIN 5/10 AND BELCHING AND FEELING THOUGH THERE IS AN AIR BUBBLE THAT CONTINUES TO MOVE. MEDICATED WITH ORDERED PRN ZOFRAN, MAALOX, AND PEPCID IV; WILL REASSESS. PT. DOES REPORT SHE HAD A RIGHT ABDOULAYE PULLED THIS PAST SATURDAY (10/26/19) AND HAS BEEN TAKING MOTRIN FOR PAIN; DENIES WANTS FOR MOTRIN AT THIS TIME. PT. IS UPDATED ON NPO STATUS FOR XRAY IN AM AND VERBALIZES UNDERSTANDING. PT. DECLINES BRIGETTE HOSE TO BE APPLIED. ENCOURAGED TO CALL FOR ANY NEEDS. CALL LIGHT IS IN REACH.
--- NOTE | 2019-10-30 01:45 | NUR ---
REMOVED NITRO PASTE PER PT. REQUEST PT. REPORTING IT IS GIVING HER A LOMBARDO; OFFERED WARM/COLD PACK AND DECLINES. PT. CONTINUES TO REPORT EPIGASTRIC PAIN; OFFERED TO CALL FOR FURTHER MED ORDERS AND PT. DECLINES AT THIS TIME. ENCOURAGED TO CALL FOR ANY NEEDS. CALL LIGHT IS IN REACH.
[2019-10-30 05:00] VITALS: BP 101/70
--- NOTE | 2019-10-30 05:01 | NUR ---
C/O LOMBARDO AND MEDICATED WITH ORDERED PRN MOTRIN; WILL REASSESS. DENIES FURTHER NEEDS. REFUSES NITRO THIS AM.
--- NOTE | 2019-10-30 07:05 | NUR ---
REPORT RECEIVED FROM KACIERN;PT RESTING IN HIGH FOWLERS POSITION;INTRODUCED SELF TO PT AND POC DISCUSSED;RESPIRATIONS EVEN AND UNLABORED ON RA;PT REPORTS CONTINUED EPIGASTIC DISCOMFORT,PAIN SCALE AND REPORTING EDUCATED;TELE MONITORING IN PLACE;PT DENIES ANY ADDITIONAL NEEDS AT THIS TIME AND IS ENCOURAGED TO CALL FOR ASSISTANCE IF NEEDED;NPO DIET REINFORCED;CALL LIGHT IN REACH;WILL CONTINUE TO MONITOR
--- NOTE | 2019-10-30 08:10 | NUR ---
PT RESTING IN SEMI FOWLERS POSITION,A&O X3;VS OBTAINED AND ASSESSMENT COMPLETED;PT REPORTS EPIGASTRIC PAIN RATING 6/10 ON THE PAIN SCALE AND REQUESTS PAIN MEDICATION BUT REFUSES PO KYLE GONZALEZ ANRP NOTIFIED OF REQUEST.NO NEW ORDERS RECEIVED AT THIS TIME;RESPIRATIONS SHALLOW ON RA,CLEAR/DIMINISHED LUNG SOUNDS NOTED;ABDOMEN SOFT ON PALPATION AND ACTIVE IN ALL 4 QUADRANTS,PT REPORTS LAST BM 10/29/19;+3 BLE EDEMA NOTED WITH WEAK PEDAL PULSES,ENCOURAGED ELEVATION;TELE MONITORING IN PLACE;#22G LEFT WRIST FLUSHED AND PATENT,SITE APPEARS HEALTHY;NPO DIET REMAINS IN PLACE;PT DENIES ANY ADDITIONAL NEEDS AT THIS TIME AND IS ENCOURAGED TO CALL FOR ASSISTANCE IF NEEDED;FALL PRECAUTIONS IN PLACE WITH CALL LIGHT IN REACH;WILL CONTINUE TO MONITOR
[2019-10-30 08:12] VITALS: BP 116/50
--- NOTE | 2019-10-30 08:25 | NUR ---
PT TRANSPORTED TO [facility] IN STABLE CONDITION VIA WHEELCHAIR ACCOMPANIED BY YADI GOULD
--- NOTE | 2019-10-30 10:00 | NUR ---
PT ARRIVED BACK TO MED/SURG ROOM 272 IN STABLE CONDITION VIA WHEELCHAIR ACCOMPANIED BY PEGGY,RADIOLOGY
[2019-10-30 11:04] VITALS: BP 105/74
--- NOTE | 2019-10-30 11:20 | NUR ---
PT TRANSPORT[facility] WRITTER
--- NOTE | 2019-10-30 11:35 | NUR ---
PT ARRIVED BACK TO MED/SURG ROOM 272 IN STABLE CONDITION VIA WHEELCHAIR ACCOMPANIED BY THIS WRITTER.
--- NOTE | 2019-10-30 12:15 | NUR ---
PT APPEARS TO BE SLEEPING IN SEMI FOWLERS POSITION;RESPIRATIONS EVEN AND UNLABORED ON RA;NO S/S OF DISTRESS NOTED;TELE MONITORING IN PLACE;ASSESSMENT REMAINS UNCHANGED AT THIS TIME;FALL PRECAUTIONS IN PLACE WITH CALL LIGHT IN REACH;WILL CONTINUE TO MONITOR
--- NOTE | 2019-10-30 12:57 | NUR ---
PT TRANSPORTED TO [facility] IN STABLE CONDITION VIA WHEELCHAIR ACCOMPANIED BY YADI GOULD.
--- NOTE | 2019-10-30 13:17 | NUR ---
PT RETURNED TO FLOOR FROM RADIOLOGY IN STABLE CONDITION.
[2019-10-30 15:39] VITALS: BP 104/67
--- NOTE | 2019-10-30 16:00 | NUR ---
PT RESTING IN SEMI FOWLERS POSITION;RESPIRATIONS EVEN AND UNLABORED ON RA;PT REPORTS THAT SHE ATE 50% ON MASH POTATOES THAT WERE PROVIDED PER REQUEST;CONTINUES TO HAVE EPIGASTRIC DISCOMFORT AT TIMES;TELE MONITORING IN PLACE;IV SITE PATENT;PT DENIES ANY ADDITIONAL NEEDS AT THIS TIME AND IS ENCOURAGED TO CALL FOR ASSISTANCE IF NEEDED;CALL LIGHT IN REACH;WILL CONTINUE TO MONITOR
--- NOTE | 2019-10-30 17:40 | NUR ---
PT REQUESTS JEREMY'S LIDOCAINE MOUTHWASH FOR INDIGESTION/HEARTBURN. NOTIFIED AND ORDER RECEIVED.WILL CONTINUE TO MONITOR
[2019-10-30 20:00] VITALS: BP 102/70
--- NOTE | 2019-10-30 20:00 | NUR ---
PATIENT SITTING UP IN CHAIR AT THIS TIME-AWAKE ALERT AND ORIENTEDX3. PATIENT CONT TO HAVE EPIGASTRIC PAIN-LITTLE RELIEF FRON NATHON'S COCKTAIL. EATING SMALL AMT OF PUDDING AT THIS TIME. TELE MONITOR IN PLACE. SALINE LOCK INTACT TO LEFT WRIST-APPEARS HEALTHY AT THIS TIME. SAFETY PRECAUTIONS REINFORCED. CALL LIGHT IN REACH. WILL CONT TO MONITOR.
--- NOTE | 2019-10-30 22:00 | NUR ---
PATIENT SHOWERED AND STATES THAT SHE IS FEELING BETTER. SITTING ON BSC AFTER TAKING BUMEX VOIDING QS YELLOW URINE. CALL LIGHT IN REACH. WILL CONT TO MONITOR.
--- NOTE | 2019-10-31 | NUR ---
PATIENT SITTING UP-MEDICATED WITH XANAX FOR SLEEP. PATIENT REFUSED NITRO OINT AT THIS ITME. VOIDING QS ON BSC. CALL LIGHT IN REACH. WILL CONT TO MONITOR.
[2019-10-31 00:10] VITALS: BP 95/55
--- NOTE | 2019-10-31 01:30 | NUR ---
PATIENT MEDICATED WITH ZOFRAN 4MG IVP FOR NAUSEA AND EPIGASTRIC PAIN. RESTING IN BED. TELE MONITOR IN PLACE. IV SITE TO LEFT WRIST INTACT AND HEALTHY AT THIS TIME. CALL LIGHT IN REACH. WILL CONT TO MONITOR.
[2019-10-31 02:45] VITALS: BP 104/62
--- NOTE | 2019-10-31 02:45 | NUR ---
RECEIVED CALL FROM ER-TELE MONITOR SHOWED 6 BEAT RUN V-TACH. PATIENT RESTING IN BED WITH HOB ELEVATED. DENIES ANY CHEST PAIN OR SOB. VS [id number]/62, HR-75, O2 SATS 97% ON ROOM AIR. SKIN IS WARM AND DRY. CALL LIGHT IN REACH. WILL CONT TO MONITOR.
--- NOTE | 2019-10-31 05:03 | NUR ---
PATIENT APPEARS SLEEPING AT THIS TIME WITH EYES CLOSED. RESPS ARE EVEN AND UNLABORED.TELE MONITOR IN PLACE. CALL LIGHT IN REACH. WILL CONT TO MONITOR.
[2019-10-31 05:04] VITALS: BP 94/51
[2019-10-31 06:32] LABS: CREATININE 1.2 mg/dL (0.5-1.0); MAGNESIUM 1.5 mg/dL (1.6-2.3); POTASSIUM 3.5 mmol/l (3.5-5.1)
--- NOTE | 2019-10-31 07:10 | NUR ---
change of shift report received from jackie willson. pt in room sleeping. respiration even and unlabored call light within easy reach. lyric writer will continue to monitor.
[2019-10-31 07:42] VITALS: BP 96/62
[2019-10-31] MEDS ORDERED: SUCRALFATE1 GM/10 ML PO (10:51)
[2019-10-31 11:10] VITALS: BP 90/61
[2019-10-31 11:31] VITALS: BP 90/61
--- NOTE | 2019-10-31 12:00 | NUR ---
PT SITTING UP IN CHAIR. PT STATES THAT HER DTR WILL BE PICKING HER UP AROUND 2PM. DISCHARGE PAPER WORK READY. FORESTRY WORKERS WILL CONTINUE TO MONITOR
--- NOTE | 2019-10-31 14:24 | NUR ---
Discharge instructions given. Patient verbalizes understanding of same. Discharged in stable condition via Wheelchair to Home with family. All belongings sent with pt.
== END 2019-10-31 14:24 | disposition home or self-care (01) | DRG 392 ==
LOC: ED 20:16 → ED-I 22:31 → ED 22:44 → MS2 22:45
PROVIDERS: Family Medicine; Internal Medicine; ADMIT Internal Medicine; ATTEND Internal Medicine
DX: K21.9 Gastro-esophageal reflux disease without esophagitis (principal); I42.8 Other cardiomyopathies; R13.10 Dysphagia, unspecified; I51.7 Cardiomegaly; K44.9 Diaphragmatic hernia without obstruction or gangrene; E11.9 Type 2 diabetes mellitus without complications; F41.1 Generalized anxiety disorder; Z86.73 Personal history of transient ischemic attack (TIA), and cerebral infarction without residual deficits; Z95.810 Presence of automatic (implantable) cardiac defibrillator; Z79.01 Long term (current) use of anticoagulants
CPT/HCPCS: G0378; J3475

== ENCOUNTER 2020-05-04 20:01 | Inpatient (IN) | payer OTHER ==
[~2020-05-04] VITALS: Ht 175.3 cm; Wt 92.2 kg
[~2020-05-04 20:01] MED LIST changes: -MIRALAX3350 N1 PO; +POLYETHYLENE GLYCO2 PO; +SUCRALFATE1 GM/10 ML PO
--- NOTE | 2020-05-04 20:01 | NUR ---
PATIENT TO ROOM 13 VIA WHEELCHAIR. TRIAGE COMPLETED AT BEDSIDE.
[2020-05-04] MEDS ORDERED: BACTRIM DS1 TAB PO (21:09)
[2020-05-04 21:29] LABS: HEMATOCRIT 39.5 % (37.0-47.0); HEMOGLOBIN 12.6 g/dl (12.0-16.0); IMMATURE GRANULOCYTES 0.5 % (0.0-5.0); MEAN CELL VOLUME 95.9 fL CALC (80.0-100.0); MEAN CORPUSCULAR HGB 30.6 pG CALC (26.0-32.0); MEAN CORPUSCULAR HGB CONC 31.9 g/dL CAL (32.0-36.0); NEUT# 8.31 thou/uL (2.00-7.15); RED BLOOD COUNT 4.12 mill/uL (4.20-5.60); RED CELL DISTRI WIDTH 14.7 % (11.5-15.5)
[2020-05-04 21:46] LABS: ALKALINE PHOSPHATASE 121 u/l (38-126); ANION GAP 12 (6-22 (CALC)); BUN 14 mg/dL (8-23); BUN/CREATININE RATIO 12 (12-20 (CALC)); CARBON DIOXIDE 28 mmol/l (22-30); CHLORIDE 102 mmol/l (95-108); CREATININE 1.1 mg/dL (0.5-1.0); GFR 50 ML/MIN (>=60 (CALC)); GFR FOR AFR.AMER. > 60 ML/MIN (>=60 (CALC)); POTASSIUM 4.1 mmol/l (3.5-5.1); SGOT/AST 29 u/l (9-36); SODIUM 138 mmol/l (137-146); TOTAL PROTEIN 7.9 g/dL (6.3-8.2)
--- NOTE | 2020-05-04 21:50 | NUR ---
PATIENT MEDICATED ORDERED FOR PAIN. WILL MONITOR FOR EFFECT.
[2020-05-04 21:55] LABS: BILIRUBIN, TOTAL 2.9 mg/dL (0.0-1.4)
[2020-05-04 21:59] LABS: MYOGLOBIN 41 ng/mL (0 - 62)
--- NOTE | 2020-05-04 22:01 | NUR ---
TO U/S VIA STRETCHER.
--- NOTE | 2020-05-04 23:13 | NUR ---
PATIENT MEDICATED FOR PAIN. PATIENT STATES SHE HAS A RIDE IF SHE GETS TO GO HOME. PATIENT AWAITING PLAN OF CARE.
[2020-05-05] VITALS (7 sets, daily range): BP systolic 81–99; BP diastolic 52–72
--- NOTE | 2020-05-05 00:08 | NUR ---
FEELS BETTER. BP REMAINS LOW. DR. VINCENT. PT STATES THAT IS HER NORM
--- NOTE | 2020-05-05 01:05 | NUR ---
REPORT TO VERONA
--- NOTE | 2020-05-05 01:15 | NUR ---
TO FLOOR VIA W/C. FEELS BETTER. AT BEDSIDE. TO TALK WITH PT.
--- NOTE | 2020-05-05 01:15 | NUR ---
TO FLOOR VIA W/C.
--- NOTE | 2020-05-05 01:20 | NUR ---
PT ARRIVED TO MS2 VIA WHEELCHAIR ACCOMPANIED BY ER NURSE, PT AMBULATORY WITH STEADY GAIT TO BED, ORIENTED PT TO ROOM AND CALL LIGHT, PT ALERT AND ORIENTED X3, DISCUSSED POC, PT REFUSED TEDS. +2 PITTING EDEMA TO BLE PEDAL PULSES FOUND WITH DOPPLER. ADMISSION ASSESSMENT COMPLETED,CALL LIGHT IN REACH,CONTINUE TO MONITOR.
--- NOTE | 2020-05-05 02:40 | NUR ---
CALL FROM ED PT HAD A 8BEAT RUN OF [employer] vascular solution, VITALS OBTAINED, PT ASYMPTOMATIC. NOTIFIED MD INSTRUCTIONAL COACH. CALL LIGHT IN REACH,CONTINUE TO MONITOR.
--- NOTE | 2020-05-05 04:40 | NUR ---
PT C/O PAIN 04/02, CALL MADE TO ED MD FOR ORDERS, 1X DOSE ORDER OBTAINED.
--- NOTE | 2020-05-05 08:01 | NUR ---
PATIENT IN BED AT THIS TIME. PATIENT ALERT AND ORIENTED. STATES PAIN IS A 3 OUT OF A SCALE OF 0-10. SIDERAILS UP CALL LIGHT NEAR. SHEARER PRINTED CIRCUIT BOARDS DONE AT THIS TIME SEE INTERVENTIONS. PATIENT VOICES NO OTHER NEEDS AT THIS TIME.
--- NOTE | 2020-05-05 08:20 | NUR ---
AT BEDSIDE DISCUSSING POC.
--- NOTE | 2020-05-05 10:09 | NUR ---
PT NOTIFIED OF NEED FOR HOME ENTRESTO TO BE BROUGHT IN BY FAMILY FOR VERIFICATION AND ADMINISTRATION, PT VERBALZIES UNDERSTANDING.
--- NOTE | 2020-05-05 10:55 | NUR ---
PT MEDICATED WITH PERCOCET 5MG PO FOR GENERALIZED/LEFT ANKLE PAIN RATING 5/10 ON THE PAIN SCALE PER REQUEST,WILL CONTINUE TO MONITOR FOR EFFECTIVENESS
--- NOTE | 2020-05-05 11:20 | NUR ---
HOME MEDICATED SENT TO PHARMACY FOR VERIFICATION.
--- NOTE | 2020-05-05 12:15 | NUR ---
PATIENT SITTING UP AT BEDSIDE VISITING WITH FAMILY. PATIENT STATES HER PAIN IS A 3 OUT OF A PAIN SCALE OF 0-10. ALL SAFETY MEASURES ARE IN PLACE AT THIS TIME CALL LIGHT NEAR. PATIENT DENIES ALL OTHER NEEDS.
--- NOTE | 2020-05-05 15:18 | NUR ---
PATIENT IN BED AT THIS TIME. BP RECHECKED AND RECORED 98/72 IN LEFT ARM LAYING IN SUPINE POSITION. PATIENT DENIES ANY NEEDS AT THIS TIME CALL LIGHT NEAR, SIDE RAILS UP X2
--- NOTE | 2020-05-05 15:45 | NUR ---
PATIENT IN BED RESTING STATES PAIN LEVEL IS A 3 DENIES NEEDING ANYTHING FOR PAIN. ALL SAFETY MEASURES ARE IN PLACE CALL LIGHT NEAR NO OTHER NEEDS AT THIS TIME.
--- NOTE | 2020-05-05 19:16 | NUR ---
REPORT FROM KIMBERLEE WALTERS. PT NOTED SITTING UP IN BED WITH VISITOR AT BEDSIDE. ALERT AND ORIENTED. NO APPARENT DISTRESS NOTED. IV SITE APPEARS HEALTHY. MONTESSORI PROGRAM DIRECTOR IN PLACE. PT MEDICATED FOR GENERALIZED PAIN 7-10. PT DENIES ANY OTHER CURRENT WANTS OR NEEDS. CALL LIGHT WITHIN REACH. WILL CONTINUE TO MONITOR.
--- NOTE | 2020-05-05 20:41 | NUR ---
PT MEDICATED ORDERED. +2 EDEMA NOTED TO BLE, ENCOURAGED ELEVATION WITH EXTRA PILLOWS PROVIDED. XANAX PROVIDED AT THIS TIME UPON REQUEST FOR SLEEP. DISCUSSED POC. PT VERBALIZED UNDERSTANDING. CALL LIGHT WITHIN REACH. WILL CONTINUE TO MONITOR.
[2020-05-06] VITALS (7 sets, daily range): BP systolic 73–100; BP diastolic 42–62
--- NOTE | 2020-05-06 00:05 | NUR ---
PT MEDICATED FOR GENERALIZED PAIN 8-10. ENCOURAGED REPOSITIONING, PT REFUSED. CALL LIGHT WITHIN REACH. WILL CONTINUE TO MONITOR.
--- NOTE | 2020-05-06 04:48 | NUR ---
PROTECTIVE SERVICES SOCIAL WORKER FOOD SERVICE HOTEL RUNNER NOTIFIED OF LOW BP. PT ASSYMPTOMATIC. PT REFUSED TO LAY FLAT OR [place] AT THIS TIME. NO NEW ORDERS RECEIVED. WILL CONTINUE TO MONITOR.
--- NOTE | 2020-05-06 05:59 | NUR ---
PT C/O PAIN 12/01 TO RIGHT BUTTOCK CYST. INDUSTRIAL HYGIENE MANAGER NOTIFIED OF PT PAIN AND CURRENT BP MANUAL 86/52. PER NICOLA VALENTIN OK TO GIVE PRN PERCOCET. MEDICATED AT THIS TIME. PT DENIES ANY OTHER CURRENT WANTS OR NEEDS. CALL LIGHT WITHIN REACH. WILL CONTINUE TO MONITOR.
--- NOTE | 2020-05-06 07:00 | NUR ---
REPORT RECEIVED FROM JAIRO BEAR. PT RESTING IN BED. NO S/S OF DISTRESS AT THIS TIME. WILL CONTINUE TO MONITOR.
--- NOTE | 2020-05-06 08:09 | NUR ---
PT RESTING IN BED, VISITORS AT BEDSIDE. PT IS ALERT AND ORIENTED. RESPIRATIONS ARE EVEN AND UNLABORED ON RA. LUNGS SOUND CLEAR. PEDAL PULSES ARE WEAK. PT REPORTS MILD PAIN IN LOWER LEFT EXTREMITY. PT DENIES WANTING ANYTHING FOR PAIN AT THIS TIME. SAFETY PRECAUTIONS IN PLACE. WILL CONTINUE TO MONITOR.
--- NOTE | 2020-05-06 11:00 | NUR ---
PT RESTURNING TO BED FROM THE SHOWER. NO S/S OF DISTRESS AT THIS TIME. SAFETY PRECAUTIONS IN PLACE.
--- NOTE | 2020-05-06 16:30 | NUR ---
PT RESTING IN BED WITH EYES CLOSED.NO S/S OF DISTRESS AT THIS TIME. SAFETY PRECAUTIONS IN PLACE. WILL CONTINUE TO MONITOR.
--- NOTE | 2020-05-06 19:15 | NUR ---
REPORT FROM [facility]TER[facility]. PT NOTED SITTING UP IN BED WATCHING TV. ALERT AND ORIENTED. NO APPARENT DISTRESS NOTED. IV SITE APPEARS HEALTHY. PHARMACY ASSOCIATE IN PLACE. ASSISTED PT TO BATHROOM AT THIS TIME, SOB WITH EXERTION. ASSISTED BACK TO BED. PT DENIES ANY OTHER CURRENT WANTS OR NEEDS. CALL LIGHT WITHIN REACH. WILL CONTINUE TO MONITOR.
--- NOTE | 2020-05-06 21:36 | NUR ---
PT MEDICATED ORDERED. NO APPARENT DISTRESS NOTED. PT DENIES ANY PAIN OR DISCOMFORT AT THIS TIME. NO CURRENT WANTS OR NEEDS. CALL LIGHT WITHIN REACH. WILL CONTINUE TO MONITOR.
[2020-05-07 00:10] VITALS: BP 83/58
--- NOTE | 2020-05-07 01:53 | NUR ---
PT RESTING IN BED WITH EYES CLOSED. NO APPARENT DISTRESS NOTED. RESPIRATIONS EVEN AND UNLABORED. CALL LIGHT WITHIN REACH. WILL CONTINUE TO MONITOR.
[2020-05-07 04:06] VITALS: BP 94/58
[2020-05-07 04:52] LABS: HEMATOCRIT 39.6 % (37.0-47.0); HEMOGLOBIN 12.8 g/dl (12.0-16.0); MEAN CELL VOLUME 94.5 fL CALC (80.0-100.0); MEAN CORPUSCULAR HGB 30.5 pG CALC (26.0-32.0); MEAN CORPUSCULAR HGB CONC 32.3 g/dL CAL (32.0-36.0); RED BLOOD COUNT 4.19 mill/uL (4.20-5.60); RED CELL DISTRI WIDTH 14.4 % (11.5-15.5)
[2020-05-07 05:11] LABS: ALBUMIN 3.4 g/dL (3.2-5.0); ALKALINE PHOSPHATASE 105 u/l (38-126); ANION GAP 11 (6-22 (CALC)); BILIRUBIN, TOTAL 1.9 mg/dL (0.0-1.4); BUN 15 mg/dL (8-23); BUN/CREATININE RATIO 15 (12-20 (CALC)); CHLORIDE 95 mmol/l (95-108); CREATININE 1.1 mg/dL (0.5-1.0); GFR 50 ML/MIN (>=60 (CALC)); GFR FOR AFR.AMER. > 60 ML/MIN (>=60 (CALC)); POTASSIUM 4.1 mmol/l (3.5-5.1); SGOT/AST 27 u/l (9-36); SODIUM 137 mmol/l (137-146)
[2020-05-07 05:14] LABS: CARBON DIOXIDE 35 mmol/l (22-30)
[2020-05-07 07:39] VITALS: BP 93/52
--- NOTE | 2020-05-07 08:28 | NUR ---
PT IS SITTING IN THE SIDE OF THE BED. ASSESSMENT DONE. PT IS A&O X3. PT STATED PAIN IN BUTTOCKS 01/31. MEDICATED PT WITH OXYCODONE. #20 LAC APPEARS HEALTHY. PATIENT DISCUSSING ABOUT POC. PT STATED SHE HAS NOT HAD A BM FOR A FEW DAYS. MEDICATED PT WITH MIRALAX. PO FLUIDS PROVIDED. PT DENIES ANY OTHER NEEDS AT THIS TIME. CALL LIGHT IN REACH.
[2020-05-07 12:02] VITALS: BP 97/91
--- NOTE | 2020-05-07 12:03 | NUR ---
PATIENT IS TALKING IN HER CELL PHONE WITH NO S/S OF DISTRESS NOTED. PT DENIES PAIN MEDICATION AT THIS TIME. CALL LIGHT IN REACH.
--- NOTE | 2020-05-07 14:03 | NUR ---
S: MANUEL ARIAS is a 60 F who presents with abscess. She has a history of hypertension, TIA, CHF, acid reflux, enlarged ventricle, defibrilator/pacemarker, and cardiac cath. All medications in patient's chart were reviewed. O: VS: BP 97/91 mmHg, P 97 bpm, RR 18 breaths per min, T 96.7 F W 90.9 kg, HT 69 in, Scr= 1.1 md/dL, CrCl= 63.7 ml/min A: No cultures pending. P: Patient is on ceftriaxone 2g IV q24h. Vancomycin ordered for pharmacy to dose. Start Vancomycin 1g IV Q12H. Vancomycin trough is drawn before the 4th dose on 05/09/20 at 0430. Vancomycin goal trough is between 10-15 mcg/ml. Pharmacy will follow and or advise on antibiotics use as needed.
--- NOTE | 2020-05-07 16:27 | NUR ---
PATIENT STATED PAIN IN BUTTOCKS 10/31. MEDICATED PT WITH OXYCODONE. PT STATED NO BM YET. MEDICATED PT WITH MILK OF MAG. PT DENIES ANY OTHER NEEDS AT THIS TIME. CALL LIGHT IN REACH.
[2020-05-07 16:43] VITALS: BP 97/91
--- NOTE | 2020-05-07 19:02 | NUR ---
REPORT FROM VENU WALTERS. PT NOTED SITTING UP AT SIDE OF BED ON CELL PHONE. ALERT AND ORIENTED. NO APPARENT DISTRESS NOTED. IV SITE APPEARS HEALTHY. TECHNICAL SUPPORT INTERNSHIP IN PLACE. DICUSSED POC. PT VERBALIZED UNDERSTANDING. PT DENIES ANY CURRENT WANTS OR NEEDS. CALL LIGHT WITHIN REACH. WILL CONTINUE TO MONITOR.
[2020-05-07 19:20] VITALS: BP 93/57
--- NOTE | 2020-05-07 20:28 | NUR ---
PT MEDICATED ORDERED. NO APPARENT DISTRESS NOTED. PT DENIES ANY PAIN OR DISCOMFORT AT THIS TIME. PRN XANAX ADMINISTERED FOR ANXIETY. NO OTHER CURRENT WANTS OR NEEDS. CALL LIGHT WITHIN REACH. WILL CONTINUE TO MONITOR.
[2020-05-08] VITALS (8 sets, daily range): BP systolic 80–92; BP diastolic 48–64
--- NOTE | 2020-05-08 00:02 | NUR ---
PT RESTING IN BED WITH EYES CLOSED. NO APPARENT DISTRESS NOTED. RESPIRATIONS EVEN AND UNLABORED. SUPERVISING LIBRARIAN IN PLACE. CALL LIGHT WITHIN REACH. WILL CONTINUE MONITOR.
--- NOTE | 2020-05-08 03:40 | NUR ---
PT RESTING IN BED. WAKES EASILY. VSS. IV SITE FLUSHED AND IV ABT INITIATED. PT MEDICATED FOR PAIN 7-10 IN RIGHT BUTTOCK. NO OTHER CURRENT WANTS OR NEEDS. CALL LIGHT WITHIN REACH. WILL CONTINUE TO MONITOR.
--- NOTE | 2020-05-08 07:24 | NUR ---
REPORT RECIEVED FROM JAIRO BEAR. PT RESTING IN SEMI FOWLERS POSITION YUPON ENTERING ROOM. INRODUCED SELF TO PT AND DISCUSSED POC. PT IS A/O X3. INTRODUCED SELF TO PT AND DISCUSSED POC. ASSESSMENT AND VITALS OBTAINED. RESPIRATIONS ARE EEVN AND UNLABORED ON ROOM AIR. HERT RHYTHM IS NORMAL WITH TELE IN PLACE, PACED 87. BOWEL SOUNDS ARE ACTIVE IN ALL QUADRANTS, LAST REPORTED BM 05/04/2020. SCHEDULED MIRLAX TO BE ADMINISTERED. #20G IN LAC FLUSHED, SITE APPEARS HEALTHY AND PATENT. PT COMPLAINS OF 8/10 PAIN OF LEFT BUTTOCKS.ABCESS ON LEFT BUTTOCK PRESENT. SKIN REMIANS INTACT. PT TO BE MEDICATED PER EMAR. PT REQUEST TO SHOWER AT THIS TIME. PT DENIES NEEDING HELP. ALL SFETY PRECAUTIONS ARE IN PLACE WITH CALL LIGHT INR EACH. WILL CONTINUE TO MONITOR
--- NOTE | 2020-05-08 11:43 | NUR ---
PT SITTING UP ON SIDE OF BED. RESPIRATIONS ARE EVEN AND UNLABORED ON ROOM AIR. PT REQUEST FOR XANAX. APPROVED DESPITE LOW BP. PT REPORTS 7/10 PAIN AT THIS TIME. WRITTER SUGGEST TAKING PAIN MEDICATION LATER TO AVOID BP DECREASING TO MUC. PT VERBALIZED UNDERSTANDING. ALL SAFETY PRECAUTIONS REMAINS IN PLACE. WILL CONTINUE TO MONITOR
--- NOTE | 2020-05-08 13:01 | NUR ---
BP RESULTING IN 92/64. PERCOCET ADMINISTERED FOR 8/10 PAIN. PT TOLERATED WELL. WRITTER INFORMED OF 2 MODERATE BM. PT DENIES ANY ADDITIONAL NEEDS AT THSI TIME. IV ANTIBIOTICS RUNNING WITH EASE, SITE APPEARS HEALTHY AND PATENT.ALL SAFETY PREACUTIONS ARE IN PLACE WIHT CALL LIGHT IN REACH. WILL CONTINUE TO MONITOR.
--- NOTE | 2020-05-08 14:08 | NUR ---
REASSESSMENT OF PAIN RESULTING IN 5/10. RESPIRATIONS ARE EVEN AND UNLABORED ON ROOM AIR. NO SIGNS OF ANY OTHER PAINS AT THIS TIME. ALL SAFETY PRECAUTIONSA RE IN PLACE WITH CALL LIGHT IN REACH. WILL CONTINUE TO MONITOR
--- NOTE | 2020-05-08 15:40 | NUR ---
PT RESTING IN SEMI FOLWERS POSITION. RESPIATIONS ARE EVEN AND UNLABORED ON ROOM AIR. IV ANTIBIOTICS RUNNING WITH EASE, SITE APPEARS HEALTHY AND PATENT. PT DENIES ANY PAIN. TELE MONITORING IN PLACE. ALL SAFETY PRECAUTIONS ARE IN PLACE WITH CALL LIGHT IN REACH. WILL CONTINUE TO MONITOR
--- NOTE | 2020-05-08 19:10 | NUR ---
REPORT FROM KWAN GILL. PT NOTED RESTING IN BED. ALERT AND ORIENTED. NO APPARENT DISTRESS NOTED. IV SITE APPEARS HEALTHY. ABRASIVE MIXER IN PLACE. DICUSSED POC. PT VERBALIZED UNDERSTANDING. RIGHT BUTTOCK CYST ASSESSED, LARGE HARDEN AREA IN INTERGLUTEAL CLEFT, CDI, DOES NOT APPEAR ANY SMALLER OR LARGER THAT PREVIOUSLY ASSESSED. NO REDNESS NOTED, SITE PAINFUL AND WARN TO TOUCH. PT DENIES ANY CURRENT WANTS OR NEEDS. CALL LIGHT WITHIN REACH. WILL CONTINUE TO MONITOR.
[2020-05-09] VITALS: BP 71/50
--- NOTE | 2020-05-09 00:02 | NUR ---
PT RESTING IN BED WITH EYES CLOSED. NO APPARENT DISTRESS NOTED. RESPIRATIONS EVEN AND UNLABORED. RN RECRUITMENT IN PLACE. CALL LIGHT WITHIN REACH. WILL CONTINUE MONITOR.
[2020-05-09 03:10] LABS: HEMATOCRIT 40.7 % (37.0-47.0); HEMOGLOBIN 13.1 g/dl (12.0-16.0); MEAN CELL VOLUME 95.1 fL CALC (80.0-100.0); MEAN CORPUSCULAR HGB 30.6 pG CALC (26.0-32.0); MEAN CORPUSCULAR HGB CONC 32.2 g/dL CAL (32.0-36.0); RED BLOOD COUNT 4.28 mill/uL (4.20-5.60); RED CELL DISTRI WIDTH 14.3 % (11.5-15.5)
[2020-05-09 03:23] LABS: ALBUMIN 3.3 g/dL (3.2-5.0); ALKALINE PHOSPHATASE 119 u/l (38-126); ANION GAP 12 (6-22 (CALC)); BUN 16 mg/dL (8-23); BUN/CREATININE RATIO 15 (12-20 (CALC)); CARBON DIOXIDE 32 mmol/l (22-30); CHLORIDE 94 mmol/l (95-108); GFR 56 ML/MIN (>=60 (CALC)); GFR FOR AFR.AMER. > 60 ML/MIN (>=60 (CALC)); MAGNESIUM 1.6 mg/dL (1.6-2.3); POTASSIUM 3.9 mmol/l (3.5-5.1); SGOT/AST 23 u/l (9-36); SODIUM 134 mmol/l (137-146); TOTAL PROTEIN 6.9 g/dL (6.3-8.2)
[2020-05-09 03:24] LABS: BILIRUBIN, TOTAL 0.6 mg/dL (0.0-1.4)
[2020-05-09 04:00] VITALS: BP 96/63
--- NOTE | 2020-05-09 04:13 | NUR ---
PT RESTING IN BED WITH EYES CLOSED. NO APPARENT DISTRESS NOTED. RESPIRATIONS EVEN AND UNLABORED. CALL LIGHT WITHIN REACH. WILL CONTINUE TO MONITOR.
[2020-05-09 07:39] VITALS: BP 118/82
--- NOTE | 2020-05-09 07:39 | NUR ---
PATIENT IN BED AT THIS TIME. SAFETY MEASURES IN PLACE CALL LIGHT NEAR. PATIENT STATED HER PAIN LEVEL CURRENTLY IS A 5 OUT OF PAIN SCALE OF 0-10. PATIENT REMINDED THAT IV SITE WAS DUE TO BE CHANGED AND PATIENT STATED SHE "DOES NOT WANT IT TO BE CHANGED "I AM A HARD STICK". PATIENT STATES NO OTHER NEEDS AT THIS TIME.
--- NOTE | 2020-05-09 08:28 | NUR ---
AT BEDSIDE DISCUSSING POC.
--- NOTE | 2020-05-09 08:59 | NUR ---
CALLED OFFICE SPOKE TO AMANDA AND GAVE HER THE INFORMATION ON THIS PT. STATED SHE WILL GIVE HIM THE MESSAGE.
--- NOTE | 2020-05-09 09:39 | NUR ---
CALLED DR. COHEN OFFICE REGARDING THIS PT. GAVE INFORMATION TO KANNAN AND SHE STATED SHE WILL GIVE IT TO THE DOCTOR.
[2020-05-09 10:55] VITALS: BP 95/63
--- NOTE | 2020-05-09 12:17 | NUR ---
PATIENT MEDICATED AT THIS TIME FOR PAIN LEVEL OF 8 OUT OF 0-10 FOR PAIN IN BUTTOCKS (L). PATIENT REPOSITIONED AT THIS TIME WELL. SAFETY MEASURES ARE IN PLACE CALL LIGHT NEAR.
--- NOTE | 2020-05-09 13:22 | NUR ---
S: MANUEL ARIAS is a 60 F who presents with Abscess . She has a history of CHF and Cardiomyopathy . All medications in patient's chart were reviewed. O: VS: BP 95/63 mmHg, P 94 bpm, RR 18 breath per minute, T 97.9 F W 90.9 kg, HT 69 in, Scr= 1.0 mg/dL, CrCl= 61.0 ml/min Trough 10 ug/mL taken 05/09/2020 0430 A: No culture pending. P: Patient is on Ceftriaxone 2g IV Q24H. Vancomycin ordered for pharmacy to dose. Continue Vancomycin 1000mg IV Q12H. Vancomycin trough is drawn before the 4th dose on 05/11/2020 at 1430. Vancomycin goal trough is between 10-15 mcg/ml. Pharmacy will follow and or advise on antibiotics use as needed.
--- NOTE | 2020-05-09 13:43 | NUR ---
AT BEDSIDE DISCUSSING POC.
--- NOTE | 2020-05-09 13:51 | NUR ---
[facility], [facility] NOTIFIED OF ORDER TO OBTAIN CONSENT FOR I&D OF BUTTOCK ABCESS TOMORROW 05/10/20.
--- NOTE | 2020-05-09 14:45 | NUR ---
CONSENT OBTAINED AT THIS TIME FORINCISION AND DRAINAGE OF BUTTOCK ABSCESS FOR 05/10/2020. BIO-FIRE SWAB OBTAINED AND SENT TO LAB. PATIENT VERBALIZES UNDERSTANDING OF CONSENT.
[2020-05-09 15:55] VITALS: BP 81/55
--- NOTE | 2020-05-09 16:15 | NUR ---
PATIENT IN BED RESTING AT THIS TIME DENIES ANY NEEDS. ALL SAFETY MEASURES ARE IN [place]CE CALL LIGHT WITHIN REACH.
[2020-05-09 19:30] VITALS: BP 85/58
--- NOTE | 2020-05-09 20:00 | NUR ---
PATIENT RESTING IN BED AT THIS TIME POSITIONED ON LEFT SIDE. PATIENT IS AWAKE ALERT AND ORIENTEDX3. PATIENT WITH CONCERNS ABOUT SURGERY IN AM. MEDICATED WITH XANAX 0.5MG PO FOR ANXIETY AND WITH PERCOCET 5/325MG FOR PAIN. TELE MONITOR IN PLACE. SALINE LOCK TO LAC INTACT. APPEARS HEALTHY AT THIS TIME. PATIENT REFUSING TO TAKE BUMEX ORDERED. STATES THAT SHE DOES NOT WANT TO TAKE IT TONIGHT. NO PERIPHERAL EDEMA NOTED. SAFETY PRECAUTIONS REINFORCED. CALL LIGHT IN REACH. WILL CONT TO MONITOR.
[2020-05-10] VITALS (12 sets, daily range): BP systolic 79–97; BP diastolic 50–63
--- NOTE | 2020-05-10 | NUR ---
PATIENT RESTING IN BED AT THIS TIME WITH EYES CLOSED. POSITIONED ON LEFT SIDE. RESP ARE EVEN AND UNLABORED. NPO FOR PROCEDURE IN AM. CALL LIGHT IN REACH. WILL CONT TO MONITOR.
--- NOTE | 2020-05-10 03:20 | NUR ---
PATIENT RESTING IN BED-ASSISTED OOB TO THE BR TO VOID. PATIENT IS SLOW WITH AMBULATION BUT STEADY. DENIES ANY DIFFICULTY WITH URINATION. VANCO HUNG AND INFUSING VIA LAC OIV SITE-APPEARS HEALTHY AT THIS TIME. PATIENT MEDICATED FOR RIGHT BUTTOCKS PAIN-8/10 ON PIAN SCALE WITH PERCOCET 5/325MG PO AND WITH XANAX FOR ANXIETY WITH JUST A SIP OF H2O. VS TAKEN AND RECORDED, BACK IN BED. SAFETY PRECAUTIONS REINFORCED. CALL LIGHT IN REACH. WILL CONT TO MONITOR.
[2020-05-10 05:32] LABS: HEMATOCRIT 41.5 % (37.0-47.0); HEMOGLOBIN 13.2 g/dl (12.0-16.0); MEAN CELL VOLUME 95.6 fL CALC (80.0-100.0); MEAN CORPUSCULAR HGB 30.4 pG CALC (26.0-32.0); MEAN CORPUSCULAR HGB CONC 31.8 g/dL CAL (32.0-36.0); RED BLOOD COUNT 4.34 mill/uL (4.20-5.60); RED CELL DISTRI WIDTH 14.4 % (11.5-15.5)
[2020-05-10 05:59] LABS: ALBUMIN 3.3 g/dL (3.2-5.0); ALKALINE PHOSPHATASE 115 u/l (38-126); BILIRUBIN, TOTAL 0.7 mg/dL (0.0-1.4); BUN 13 mg/dL (8-23); BUN/CREATININE RATIO 14 (12-20 (CALC)); CARBON DIOXIDE 32 mmol/l (22-30); CHLORIDE 96 mmol/l (95-108); CREATININE 0.9 mg/dL (0.5-1.0); GFR > 60 ML/MIN (>=60 (CALC)); GFR FOR AFR.AMER. > 60 ML/MIN (>=60 (CALC)); SGOT/AST 24 u/l (9-36); SODIUM 136 mmol/l (137-146); TOTAL PROTEIN 6.8 g/dL (6.3-8.2)
[2020-05-10 06:01] LABS: ANION GAP 12 (6-22 (CALC)); POTASSIUM 3.8 mmol/l (3.5-5.1)
--- NOTE | 2020-05-10 07:34 | NUR ---
PATIENT IN BED AWAKE ALERT AND ORIENTED AT THIS TIME DENIES ANY NEEDS. NPO DUE TO GOING TO SURGERY THIS AM. CALL LIGHT NEAR SIDERAILS UP X 2 CALL LIGHT WITHIN REACH.PATIENT VOICES NO OTHER NEEDS AT THIS TIME.
--- NOTE | 2020-05-10 08:14 | NUR ---
AT BEDSIDE DISCUSSING POC.
--- NOTE | 2020-05-10 11:02 | NUR ---
PT TRANSPORTED TO OR AT THIS TIME IN STABLE CONDITION VIA STRETCHER ACCOMPANIED BY SELENA FARMER AND SELENA MOSLEY.
--- NOTE | 2020-05-10 13:55 | NUR ---
PT ARRIVED BACK TO MED/SURG ROOM 272 IN STABLE CONDITION VIA STRETCHER ACCOMPANIED BY SELENA TRACY; BEDSIDE REPORT RECEIVED FROM SELENA TRACY AT THIS TIME;PT AMBULATED TO BEDSIDE WITH X1 PERSON ASSIST;RESPIRATIONS EVEN AND UNLABORED ON RA;VS TO BE OBTAINED BY YADI VARGAS.DRESSING TO BUTTOCK/COCCYX NOTED WITH BLOODY SHADOWING NOTED, DRESSING REINFORCED WITH 4X4 GUAZE AND ABD PAD,SECURED WITH MESH PANTIES;NEW IV SITE NOTED TO BE STARTED IN OR, #20G TO RAC INFUSING LR AT THIS TIME;DIET TO BE PROVIDED PER REQUEST;PT DENIES ANY ADDITIONAL NEEDS AT THIS TIME AND IS ENCOURAGED TO CALL FOR ASSISTANCE IF NEEDED;CALL LIGHT IN REACH;WILL CONTINUE TO MONITOR
--- NOTE | 2020-05-10 14:37 | NUR ---
PATIENT REQUESTION PAIN MEDICATION AT THIS TIME. PATIENT STATES PAIN IS A 5 ON A SCALE OF 0-10 AND IS "THROBBING" IN RIGHT BUTTOCKS, OXYCODONE/THANH 5MG GIVEN PER ORDER. . DRESSING INTACT AT THIS TIME. ADVISE PATIENT TO CALL NURSE IF PAIN INCREASES. PATIENT VERBALIZES UNDERSTANDING.
--- NOTE | 2020-05-10 15:01 | NUR ---
MARV ANRP AT BEDSIDE
--- NOTE | 2020-05-10 16:20 | NUR ---
PATIENT IN BED AT THIS TIME. PATIENT STATES PAIN LEVEL IS STILL A 3 OUT OF THE PAIN SCALE OF 0-10. PATIENT DRESSING INTACT AT THIS TIME. CALL LIGHT WITHIN REACH DENIES ALL OTHER NEEDS.
--- NOTE | 2020-05-10 19:30 | NUR ---
PATIENT RESTING IN BED AT THIS TIME-DROWSY BUT ALERT AND ORIENTEDX3. PATIENT WITH DRESSING TO RIGHT BUTTOCKS INTACT AND SECURED WITH MESH PANTIE. IV SITE TO LAC INTACT WITH IVF AT KVO RATE. PATIENT UP TO BR TO VOID. BP IS LOW-84/50, HR-74. BUMEX WITH BE HELD TONIGHT DUE TO HYPOTENSION. LUNGS ARE CLEAR. NO PERIPHERAL EDEMA NOTED. SAFETY PRECAUTIONS REINFORCED. CALL LIGHT IN REACH. WILL CONT TO MONITOR.
[2020-05-11] VITALS (7 sets, daily range): BP systolic 88–113; BP diastolic 53–73
--- NOTE | 2020-05-11 | NUR ---
PATIENT APPEARS SLEEPING AT THIS TIME WITH EYES CLOSED. RESPS ARE EVEN AND UNLABORED. TELE MONITOR IN PLACE. STILL WITH LOW BP. CALL LIGHT IN REACH. WILL CONT TO MONITOR.
--- NOTE | 2020-05-11 01:16 | NUR ---
PATIENT UP TO BR TO VOID-BACK TO BED. PATIENT RIGHT BUTTOCKS DRESSING REMOVED WITH PACKING SATURATED WITH SEROSANGUINOUS DRAINAGE. WOUND WAS THEN PACKED USING GAUGE WRAP AND Q-TIP, COVERED WITH 4X4 AND ABD PAD. SECURED WITH MESH PANTIE. BP-92/67, HR-70. PATIENT MEDICATED WITH MORPHINE 2MG IVP REQUESTED BY PATIENT AFTER DRESSING CHANGE. ALSO MEDICATED WITH PERCOCET 5/325MG PO FOR 8/10 PAIN SCALE. IV SITE TO LAC CHANGED AND J-LOOP APPLIED. SITE REMAINS HEALTHY WITH GOOD BLOOD RETURN. PATIENT PROVIDED WITH [employer] PARM DINER. PATIENT TOLERATED WOUND CARE FAIR. SAFETY PRECAUTIONS REINFROCED. CALL LIGHT IN REACH. WILL CONT TO MONITOR.
--- NOTE | 2020-05-11 05:00 | NUR ---
PATIENT RESTING IN BED AT THIS TIME. NO COMPLAINTS AT THIS TIME. TELE MONITOR IN PLACE. VANCO INFUSING AT THIS TIME. CALL LIGHT IN REACH. WILL CONT TO MONITOR.
--- NOTE | 2020-05-11 07:00 | NUR ---
REPORT RECEIVED FROM SELENA JAMIL;PT RESTING IN SEMI FOWLERS POSITION;INTRODUCED SELF TO PT AND POC DISCUSSED;RESPIRATIONS EVEN AND UNLABORED ON RA;PT REPORTS BUTTOCK PAIN RATING 6/10 ON THE PAIN SCALE AND REQUESTS PAIN MEDICATION,PT TO BE MEDICATED PER ORDERS;TELE MONITORING IN PLACE;PT ENCOURAGED TO CALL FOR ASSISTANCE IF NEEDED;FALL PRECAUTIONS IN PLACE WITH BED IN THE LOWEST POSITION AND CALL LIGHT IN REACH;WILL CONTINUE TO MONITOR
--- NOTE | 2020-05-11 09:10 | NUR ---
PT RESTING IN SEMI FOWLERS POSITION,A&O X3;PT REPORTS BUTTOCK PAIN HAS DECREASED SINCE PAIN MEDICATION ADMINISTARTION,PAIN SCALE AND REPORTING EDUCATED;RESPIRATIONS EVEN AND UNLABORED ON RA;ABDOMEN SOFT ON PALPATION AND ACTIVE IN ALL 4 QUADRANTS;STRONG PEDAL PULSES;#20G TO RAC FLUSHED AND PATENT,SITE APPEARS HEALTHY;TELE MONITORING IN PLACE;DRESSING TO BUTTOCK CDI;PT DENIES ANY ADDITIONAL NEEDS AT THIS TIME AND IS ENCOURAGED TO CALL FOR ASSISTANCE IF NEEDED;FALL PRECAUTIONS IN PLACE WITH BED IN THE LOWEST POSITION AND CALL LIGHT IN REACH;WILL CONTINUE TO MONITOR
--- NOTE | 2020-05-11 12:05 | NUR ---
PT RESTING IN SEMI FOWLERS POSITION EATING LUNCH;RESPIRATIONS EVEN AND UNLABORED ON RA;PT DENIES ANY CURRENT PAIN OR NEEDS AT THIS TIME;IV SITE PATENT;DRESSING CDI TO BUTTOCK;PT EDUCATED ON THE NEED FOR DRESSING CHANGE AND REPORTS THAT SHE WOULD LIKE TO SHOWER FIRST AND WILL LET ME KNOW WHEN SHE IS READY FOR DRESSING CHANGE;PT DENIES ANY ADDITIONAL NEEDS AT THIS TIME AND IS ENCOURAGED TO CALL FOR ASSISTANCE IF NEEDED;CALL LIGHT IN REACH;WILL CONTINUE TO MONITOR
--- NOTE | 2020-05-11 14:00 | NUR ---
PT RESTING IN SEMI FOWLERS POSITION;RESPIRATIONS EVEN AND UNLABORED ON RA;PT DENIES ANY CURRENT PAIN OR DISCOMFORTS;TELE MONITORING IN PLACE;IV SITE PATENT;PT REFUSING DRESSING CHANGE AT THIS TIME STATING "WE WILL DO IT LATER",PT EDUCATED ON THE IMPORTANCE OF DRESSINGS CHANGES AND VERBALIZES UNDERSTANDING;PT DENIES ANY ADDITIONAL NEEDS;ASSESSMENT REMAINS UNCHANGED AT THIS TIME;CALL LIGHT IN REACH;WILL CONTINUE TO MONITOR
--- NOTE | 2020-05-11 14:10 | NUR ---
AT BEDSIDE DISCUSSING POC.
--- NOTE | 2020-05-11 15:00 | NUR ---
PT REPORTS RT BUTTOCK PAIN RATING 7/10 ON THE PAIN SCALE AND REQUESTS PAIN MEDICATION, PT TO BE MEDICATED WITH PRN PERCOCET 5/325MG PO AT THIS TIME;WILL CONTINUE TO MONITOR FOR EFFECTIVENESS
--- NOTE | 2020-05-11 15:00 | NUR ---
LAB AT BEDSIDE
--- NOTE | 2020-05-11 16:00 | NUR ---
PT RESTING IN SEMI FOWLERS POSITION;RESPIRATIONS EVEN AND UNLABORED ON RA;PT DENIES ANY NEEDS AT THIS TIME;TELE MONITORING IN PLACE;IV SITE PATENT AND ABX STARTED AT THIS TIME;PT DENIES ANY ADDITIONAL NEEDS AND IS ENCOURAGED TO CALL FOR ASSISTANCE IF NEEDED;CALL LIGHT IN REACH;WILL CONTINUE TO MONITOR
--- NOTE | 2020-05-11 18:00 | NUR ---
PT RESTING IN SEMI FOWLERS POSITION;RESPIRATIONS EVEN AND UNLABORED ON RA;PT AGAIN REFUSES DRESSING CHANGE AT THIS TIME, EDUCATED ON THE IMPORTANCE OF DRESSINGS CHANGES AND S/S OF INFECTION;PT VERBALIZES UNDERSTANDING;PT DENIES ANY ADDITIONAL NEEDS AND IS ENCOURAGED TO CALL FOR ASSISTANCE IF NEEDED;CALL LIGHT IN REACH;WILL CONTINUE TO MONITOR
--- NOTE | 2020-05-11 19:30 | NUR ---
PATIENT RESTINGIN BED AT THIS TIME-AWAKE ALERT AND ORIENTEDX3. TELE MONITOR IN PLACE. SALINE LOCK TO RAC INTACT AND APPEARS HEALTHY AT THIS TIME. RIGHT BUTTOCKS DRESSING INTACT WITH MESH PANTIE IN PLACE. NO COMPLAINTS AT THIS TIME. SAFETY PRECAUTIONS REINFORCED. CALL LIGHT IN REACH. WILL CONT TO MONITOR.
--- NOTE | 2020-05-11 22:00 | NUR ---
PATIENT UP AND TOOK ANOTHER SHOWER-TOLERATED WELL AND NOW BACK IN BED. PATIENT REFUSED HER BUMEX TONIGHT-STATES SHE DOESN'T NEED IT. NO PERIPHERAL SWELLING NO SOB. PATIENT WAS MEDICATED PRIOR TO WOUND CARE WITH MORPHINE 2MG IVP AND WITH PERCOCET 5/325MG. OLD PACKING WAS REMOVED-PACKING WAS SATURATED WITH SEROSANGUINOUS FLUIDS. WOUND WAS THEN PACKED USING GAUZE ROLL USING Q-TIP, COVERED WITH 4X4 AND ABD. SECURED WITH MESH PANTIE. PATIENT TOLERATED FAIR. RESTING IN BED. CALL LIGHT IN REACH. WILL CONT TO MONITOR.
[2020-05-12] VITALS: BP 82/37
--- NOTE | 2020-05-12 00:50 | NUR ---
RECIEVED CALL FROM [employer] IN THE ER-STATES THAT THE MONITOR MAY HAVE MALJUNCTIONED BUT IS NOW SHOWING PACED 71 WITH [employer]. PATIENT RESTING IN BED-NO COMPLAINTS. STATES THAT SHE IS FEELING MUCH BETTER THAN SHE HAS BEEN FEELING. NO PALPATATIONS, NO CHEST PAINS, NO SOB. PATIENT STATES THAT SHE SHE FEELS GOOD. NSG FEI BERRIOS NOTIFIED. WILL CONT TO MONITOR.
--- NOTE | 2020-05-12 02:07 | NUR ---
PATIENT CONT TO BE ASYMPTOMATIC WITH NO COMPLAINTS AND RESTING IN BED. REMOTE PACER INTERIGATION DONE AT BEDSIDE. [facility] PHONE#[phone] WITH TRANSFER TO [facility] GREGORY VILLAFUERTE RN-ER DEPT. REPORT TO FOLLOW. TELE MONITOR REAPPLIED AFTER INTERIGATION. WILL CONT TO MONITOR.
[2020-05-12 04:00] VITALS: BP 93/46
--- NOTE | 2020-05-12 04:30 | NUR ---
PATIENT RESTING IN POSITIONED ON LEFT SIDE. VANCO PATENT AND INFUSING VIA RIGHT AC IV SITE. SITE REMAINS HEALTHY AT THIS TIME. TELE MONITOR IN PLACE. DRESSING TO RIGHT BUTTOCKS INTACT. CALL LIGHT IN REACH. WILL CONT TO MONITOR.
--- NOTE | 2020-05-12 08:15 | NUR ---
PT RESTING IN BED ALER AND ORIENTED. RESPIRATIONS ARE EVEN AND UNLABORED ON RA. LUNGS SOUND CLEAR. PEDAL PULSES ARE WEAK. PT REPORTS MILD PAIN BUTTOCKS. PT TO BE MEDICATED PER EMAR ORDERS. SAFETY PRECAUTIONS IN PLACE. WILL CONTINUE TO MONITOR.
[2020-05-12 08:27] VITALS: BP 104/50
--- NOTE | 2020-05-12 09:54 | NUR ---
PT RETURNING TO BED FROM THE SHOWER, PT STATES SHE IS READY FOR DRESSING CHANGE. PT MEDICATED PER EMAR ORDERS. WOUND TO R BUTTOCKS CLEANSED WITH NS AND PACKED PER DRESSING ORDERS. PT FEELING ANIXOUS, PT TO BE MEDICATED PER EMAR ORDERS. SAFETY PRECAUTIONS IN PLACE. WILL CONTINUE TO MONTIOR.
[2020-05-12] MEDS ORDERED: PERCOCET 5/325M1 TAB PO (10:45)
[2020-05-12] MEDS ORDERED: BACTRIM DS1 TAB PO (11:14)
--- NOTE | 2020-05-12 11:20 | NUR ---
S: MANUEL ARIAS is a 60 F who presents with abcess. She has a history of CHF and cardiomyopathy. All medications in patient's chart were reviewed. O: Vancomycin trough was 13 mcg/mL on 05/11/20. VS: BP 104/50 mmHg, P 92 bpm, RR 18 breaths/min, T 96.7 F W 90.88 kg, HT 69 inches, Scr= 0.9 mg/dL, CrCl= 93.0 ml/min A: Preliminary wound culture shows no growth. P: Patient is on ceftriaxone 2 g IV Q24H. Vancomycin ordered for pharmacy to dose. Continue Vancomycin 1000 mg IV Q12H. Vancomycin trough is drawn before the 4th dose on 05/13/20 at 1430. Vancomycin goal trough is between <10-20 mcg/ml>. Pharmacy will follow and or advise on antibiotics use as needed.
--- NOTE | 2020-05-12 11:44 | NUR ---
REPORT RECEIVED FROM SELENA BANSAL. PT RESTING IN BED. NO S/S OF DISTRESS AT THIS TIME. SAFETY PRECAUTIONS IN PLACE. WILL CONTINUE TO MONITOR.
[2020-05-12 11:47] VITALS: BP 104/66
--- NOTE | 2020-05-12 12:06 | NUR ---
PT RESTING IN BED, RESPIRATIONS ARE EVEN AND UNLABORED ON RA. NO S/S OF DISTRESS AT THIS TIME. WILL CONTINUE TO MONITOR.
--- NOTE | 2020-05-12 16:08 | NUR ---
PT RESTING IN BED, PT DENIES ANY NEEDS AT THIS TIME.
[2020-05-12 16:15] VITALS: BP 95/65
[2020-05-12 19:00] VITALS: BP 114/75
--- NOTE | 2020-05-12 19:30 | NUR ---
REPORT FROM ACE WALTERS. PT NOTED SITTING UP IN BED WATCHING TV. ALERT AND ORIENTED. NO APPARENT DISTRESS NOTED. IV SITE APPEARS HEALTHY. CHIEF ACCOUNTANT IN PLACE. DRESSING TO RIGHT BUTTOCK, CDI. PT DENIES ANY CURRENT WANTS OR NEEDS. CALL LIGHT WITHIN REACH. WILL CONTINUE TO MONITOR.
--- NOTE | 2020-05-12 21:12 | NUR ---
PT MEDICATED ORDERED. NO APPARENT DISTRESS NOTED. DRESSING REMAINS CDI. PT DENIES ANY CURRENT WANTS OR NEEDS. CALL LIGHT WITHIN REACH. WILL CONTINUE TO MONITOR.
[2020-05-13] VITALS: BP 96/62
--- NOTE | 2020-05-13 00:22 | NUR ---
PT RESTING IN BED WITH EYES CLOSED. NO APPARENT DISTRESS NOTED. RESPIRATIONS EVEN AND UNLABORED. PHOTOGRAPHIC SPOTTER IN PLACE. CALL LIGHT WITHIN REACH. WILL CONTINUE TO MONITOR.
[2020-05-13 04:00] VITALS: BP 93/60
--- NOTE | 2020-05-13 06:31 | NUR ---
DRESSING CHANGE PER ORDERS. PT TOLERATED WELL. SMALL AMOUNT OF BLOODY DRAINAGE NOTED TO PACKING. PT PREMEDICATED WITH PRN PERCOCET AND MORPHINE PRIOR TO DRESSING CHANGE.
--- NOTE | 2020-05-13 07:15 | NUR ---
REPORT RECEIVED FROM JAIRO BEAR. PT SITTING UP ON EDGE OF BED; ALERT AND ORIENTED. DENIES PAIN. RESPIRATIONS EVEN AND UNLABORED ON ROOM AIR; SLIGHTLY LABORED WITH EXERTION OF AMBULATION; PT ALSO REPORTS THAT SHE DOESN'T MAKE QUICK MOVEMENTS DUE TO HER BALANCE FEELING OFF AT TIMES. LUNGS ARE CLEAR; PULSES STRONG. DRESSING TO RIGHT BUTTOCK CDI. 1+ EDEMA TO LLE. PLAN OF CARE REVIEWED. PT ENCOURAGED TO VERBALIZE CONCERNS; PT IS ANXIOUS AND VERBALIZES CONCERNS ABOUT HER SCHEDULED DRESSING CHANGES. REQUES TS TO BE PREMEDICATED AND ALLOWED TO SHOWER BEFORE; CONCERNED ABOUT PAIN. SAFETY MEASURES IN PLACE. CALL LIGHT WITHIN REACH.
[2020-05-13 07:40] VITALS: BP 104/72
[2020-05-13] MEDS ORDERED: COREG3.125 MG PO (08:04)
[2020-05-13] MEDS ORDERED: MIDODRINE10 MG PO (08:04)
[2020-05-13] MEDS ORDERED: KEFLEX500 MG PO (10:50)
[2020-05-13] MEDS ORDERED: XANAX0.5 MG PO (11:00)
--- NOTE | 2020-05-13 12:25 | NUR ---
PERCOCET AND ATIVAN GIVEN AND PT IN SHOWER TO PREPARE FOR DRESSING CHANGE; PT VERY ANXIOUS. DAUGHTER AT BEDSIDE.
[2020-05-13 13:00] VITALS: BP 119/61
--- NOTE | 2020-05-13 13:15 | NUR ---
DRESSING CHANGE COMPLETED WITH DAUGHTER AT BEDSIDE; MEDICATED WITH MORPHINE IMMEDIATELY PRIOR TO PACKING. PT TEARFUL AND DOES NOT TOLERATE WELL.
--- NOTE | 2020-05-13 13:40 | NUR ---
IV site discontinued, cath intact. No edema , no redness, voices no discomfort.
--- NOTE | 2020-05-13 13:44 | NUR ---
Discharge instructions given. Patient verbalizes understanding of same. Discharged in stable condition via Wheelchair to Home with family. All belongings sent with pt.
== END 2020-05-13 13:44 | disposition home or self-care (01) | DRG 982 ==
LOC: ED 20:01 → ED-I 23:58 → ED 05-05 00:24 → MS2 05-05 00:25
PROVIDERS: Emergency Medicine; Nurse Practitioner Family; ADMIT Internal Medicine; ATTEND Internal Medicine
PROC: 0D9P0ZZ Drainage of Rectum, Open Approach (ICD-10-PCS; principal; 2020-05-10)
DX: I95.89 Other hypotension (principal); K61.1 Rectal abscess; I42.8 Other cardiomyopathies; I50.22 Chronic systolic (congestive) heart failure; L02.31 Cutaneous abscess of buttock; I11.0 Hypertensive heart disease with heart failure; M10.9 Gout, unspecified; F41.9 Anxiety disorder, unspecified; G47.30 Sleep apnea, unspecified; R53.82 Chronic fatigue, unspecified; K21.9 Gastro-esophageal reflux disease without esophagitis; B95.3 Streptococcus pneumoniae as the cause of diseases classified elsewhere; Z20.828 Contact with and (suspected) exposure to other viral communicable diseases; E66.9 Obesity, unspecified; Z68.30 Body mass index [BMI] 30.0-30.9, adult; Z79.01 Long term (current) use of anticoagulants; Z79.899 Other long term (current) drug therapy; Z95.810 Presence of automatic (implantable) cardiac defibrillator; Z88.1 Allergy status to other antibiotic agents; Z88.5 Allergy status to narcotic agent; Z88.0 Allergy status to penicillin; Z88.8 Allergy status to other drugs, medicaments and biological substances; Z86.73 Personal history of transient ischemic attack (TIA), and cerebral infarction without residual deficits
CPT/HCPCS: C9290; J0131

== ENCOUNTER 2020-07-15 00:04 | Inpatient (IN) | payer OTHER ==
[~2020-07-15] VITALS: Ht 175.3 cm; Wt 90.0 kg
[~2020-07-15 00:04] MED LIST changes: +COREG3.125 MG PO; +KEFLEX500 MG PO; +MIDODRINE10 MG PO
--- NOTE | 2020-07-15 00:10 | NUR ---
PATIENT TO ROOM 12 VIA WHEELCHAIR. PATIENT UNDRESSED INTO A GOWN, PLACED ON MONITOR, TRIAGE COMPLETED AT BEDSIDE.
[2020-07-15 00:56] LABS: HEMATOCRIT 41.6 % (37.0-47.0); HEMOGLOBIN 13.4 g/dl (12.0-16.0); IMMATURE GRANULOCYTES 0.2 % (0.0-5.0); MEAN CELL VOLUME 94.3 fL CALC (80.0-100.0); MEAN CORPUSCULAR HGB 30.4 pG CALC (26.0-32.0); MEAN CORPUSCULAR HGB CONC 32.2 g/dL CAL (32.0-36.0); NEUT# 3.63 thou/uL (2.00-7.15); RED BLOOD COUNT 4.41 mill/uL (4.20-5.60); RED CELL DISTRI WIDTH 15.9 % (11.5-15.5)
--- NOTE | 2020-07-15 01:00 | NUR ---
PATIENT AWAKE AND ALERT, REPORTS RELIEF OF SYMPTOMS, APPEARS MORE COMFORTABLE, AWAITING DIAGNOSTIC RESULTS.
[2020-07-15] MEDS ORDERED: ALDACTONE25 MG PO (01:01)
[2020-07-15] MEDS ORDERED: ENTRESTO 24-261 TAB PO (01:03)
[2020-07-15 01:12] LABS: ALKALINE PHOSPHATASE 124 u/l (38-126); ANION GAP 13 (6-22 (CALC)); BUN 17 mg/dL (8-23); BUN/CREATININE RATIO 18 (12-20 (CALC)); CARBON DIOXIDE 30 mmol/l (22-30); CHLORIDE 97 mmol/l (95-108); GFR 56 ML/MIN (>=60 (CALC)); GFR FOR AFR.AMER. > 60 ML/MIN (>=60 (CALC)); POTASSIUM 3.7 mmol/l (3.5-5.1); SGOT/AST 33 u/l (9-36); SODIUM 136 mmol/l (137-146); TOTAL PROTEIN 8.1 g/dL (6.3-8.2)
[2020-07-15 01:20] LABS: MYOGLOBIN 27 ng/mL (0 - 62)
[2020-07-15 01:22] LABS: ALBUMIN 4.3 g/dL (3.2-5.0); BILIRUBIN, TOTAL 1.7 mg/dL (0.0-1.4)
--- NOTE | 2020-07-15 02:10 | NUR ---
PATIENT RESTING, NO C/O PAIN OR DISCOMFORT, NO S/S OF DISTRESS NOTED, RESPIRATIONS EVEN AND UNLABORED, AWAITING DIAGNOSTIC RESULTS.
[2020-07-15 02:18] LABS: URINE BILIRUBIN - DIPSTICK NEGATIVE (NEGATIVE); URINE BLOOD DIPSTICK NEGATIVE (NEGATIVE); URINE COLOR YELLOW; URINE GLUCOSE - DIPSTICK NEGATIVE (NEGATIVE); URINE KETONE NEGATIVE (NEGATIVE); URINE LEUK ESTERASE NEGATIVE (NEGATIVE); URINE NITRITE - DIPSTICK NEGATIVE (Negative); URINE PH 5.5 (4.5-8.0); URINE PROTEIN - DIPSTICK NEGATIVE (NEG-TRACE); URINE SPECIFIC GRAVITY 1.015; URINE UROBILINOGEN - DIPSTICK 0.2 E.U./dL (0.2)
--- NOTE | 2020-07-15 03:41 | NUR ---
PATIENT RESTING, LIGHTS DIMMED FOR COMFORT, AWAITING INPATIENT BED, RESPIRATIONS EVEN AND UNLABORED, REPORTS PAIN RELIEF.
--- NOTE | 2020-07-15 04:41 | NUR ---
RESPIRATIONS EVEN AND UNLABORED, AWAITING INPATIENT BED ASSIGNMENT
--- NOTE | 2020-07-15 05:40 | NUR ---
RESTING QUIETLY WITH EYES CLOSED, RESPIRATIONS EVEN AND UNLABORED, NO C/O PAIN OR DISCOMFORT, AWAITING INPATIENT BED ASSIGNMENT.
--- NOTE | 2020-07-15 06:20 | NUR ---
MORNING LABS DRAWN. PATIENT C/O FRONTAL HEADACHE. NTG PASTE REMOVED. WILL CONTINE TO MONITOR
--- NOTE | 2020-07-15 06:29 | NUR ---
RESTING QUIETLY, NO S/S OF DISTRESS NOTED, RESPIRATIONS EVEN AND UNLABORED, AWAITING INPATIENT BED ASSIGNMENT.
--- NOTE | 2020-07-15 06:57 | NUR ---
HAND OFF REPORT GIVEN TO SERGE
--- NOTE | 2020-07-15 07:33 | NUR ---
PT SEEN ALERT AND ORIENTED X 3, NO DISTRESS OR COMPLAINTS.
--- NOTE | 2020-07-15 09:26 | NUR ---
PT PROVIDED AM MEDS. NO COMPLAINT OF CHEST PAIN OR SHORTNESS OF BREATH.
--- NOTE | 2020-07-15 11:00 | NUR ---
PATIENT C/O CRAMPING TO BILATERAL LOWER EXT. KHADRA STEEN AWARE AND AWAITING NEW ORDERS.
--- NOTE | 2020-07-15 14:50 | NUR ---
PT SEEN BY DR ROCHA WHILE IN ER, PLAN TO KEEP UNTIL TOMORROW. PT IN NO DISTRESS SHE RESTS IN THE STRETCHER.
--- NOTE | 2020-07-15 15:40 | NUR ---
RECIEVED REPORT FROM SELENA VALENTINE
--- NOTE | 2020-07-15 15:47 | NUR ---
PT ARRIVED TO [facility] ROOM 273 VIA PORTABLE ACCOMPAINERD BY SELENA VALENTINE. PT AMBULATED TO BED WITH NO DIFFICULTY. INTRODUCED ELF TO PT AND DISCUSSED POC. PT IS A/O X3. ASSESSMENT AND VITALS COMPLETED. REPSIRATIONS ARE EVEN AND UNLABORED ON ROOM AIR. HEART RHYTHM NORMAL WITH TELE IN PLACE. BOWEL SOUNS ARE ACTIVE IN ALL QUADRANTS. #22G IN LH FLUSHED, SITE APPEARS HEALTHY AND PATENT. SKIN IS INTACT WITH NO BREAK DOWN NOTED. 2+ EDEMA NOTED TO BLE. PT COMPLAINS OF 4/10 HEAD ACHE, NITOR OINTMENT REMOVED FROM RIGHT ARM. TYLENOL TO BE ADMINISTERED.MARRIAGE AND FAMILY THERAPIST NOTFIED OF ALLERGIES, ALLERGY BAND AND FALL RISK BAND APPLIED. PT ORIENETED TO ROOM AND CALL LIGHT SYSTEM. PT DENIES OF ANY OTHER PAINS OR NEEDS AT THIS TIME. ALL SAFETY PRECAUTIONS ARE IN PLACE. WILL CONTINUE TO MONITOR
--- NOTE | 2020-07-15 15:53 | NUR ---
REPORT CALLED TO FREDDIE BOWENS TAKEN TO ROOM 273 WITHOUT INCIDENT.
[2020-07-15 15:57] VITALS: BP 106/73
[2020-07-15 20:00] VITALS: BP 106/74
--- NOTE | 2020-07-15 20:00 | NUR ---
REPORT RECEIVED. ASSESSMENT COMPLETE. SAFETY MEASURES IN PLACE. CALL LIGHT WITHIN REACH.
[2020-07-16] VITALS: BP 103/77
--- NOTE | 2020-07-16 | NUR ---
PT LAYING IN BED SLEEPING, NO S/SX OF DISTRESS OR DISCOMFORT OBSERVED AT THIS TIME; RESPIRATIONS EVEN AND NON-LABORED ON ROOM AIR. SAFETY MEASURES IN PLACE, CALL LIGHT WITHIN REACH. WILL CONTINUE TO MONITOR.
[2020-07-16 04:00] VITALS: BP 95/73
[2020-07-16 08:18] VITALS: BP 93/68
--- NOTE | 2020-07-16 09:44 | NUR ---
COREG HELD TO DUE LOW BP. PT REFUSED BUMEX STATING "IT GIVES ME CRAMPS." PARKING METER INSTALLER OFFERED FLEXIRIL, PT REFUSED. REST OF MORNING MEDS ADMINISTERED. PT TOELRATED WELL.
--- NOTE | 2020-07-16 10:30 | NUR ---
RECIEVED REPORT FROM JAIRO AMIN.PT RESTING IN HIGH FOWLERS POSITION UPON ENTERING ROOM. INTRODUCED SELF TO PT AND DISCUSSED POC. PT IS A/O X3. ASSESSMENT AND VITALS COMPLETED. RESPIRATIONS ARE EVEN AND UNLABORED ON ROOM AIR. HEART RHYTH NORMAL WITH TELE IN PLACE, PACED PER ER MONITORING. BOWEL SOUNDS ARE ACTIVE, LAST REPORTED BM 07/13/20. MD TO BE NOTFIED. RADIAL PULSES STRONG. PEDAL PULSES WEAK. 1+ EDEMA NOTED TO BLE. SKIN IS WARM AND INTACT WITH NO BREAKDOWN NOTED. PT DENIES OF ANY PAINS AT THIS TIME. ALL SAFETY PRECAUTIONS ARE IN PLACE WITH CALL LIGHT IN REACH. ENCOURAGED PT TO CALL FOR ASSISTANCE. PT VERBALIZED UNDERSTANDING. ALL SAFETY PRECAUTIONS ARE IN PLACE WITH CALL LIGHT IN REACH. WILL CONTINUE TO MONITOR.
--- NOTE | 2020-07-16 11:38 | NUR ---
DR ETIENNE AT BEDSIDE
[2020-07-16 11:45] VITALS: BP 90/53
--- NOTE | 2020-07-16 12:11 | NUR ---
PT RESTING IN SEMI FOWLERS POSITION. REPSIRATIONS ARE EVEN AND UNLABORED ON ROOM AIR. TELE MONITORING IN PLACE. PT DENIES OF ANY PAINS OR NEEDS AT THIS TIME. ALL SAFETY PRECAUTIONS ARE IN PLACE WITH CALL LIGHT IN REACH. WILL CONTINUE TO MONITOR
[2020-07-16 13:32] LABS: ALBUMIN 3.7 g/dL (3.2-5.0); ALKALINE PHOSPHATASE 85 u/l (38-126); ANION GAP 13 (6-22 (CALC)); BILIRUBIN, TOTAL 1.8 mg/dL (0.0-1.4); BUN 20 mg/dL (8-23); BUN/CREATININE RATIO 19 (12-20 (CALC)); CARBON DIOXIDE 35 mmol/l (22-30); CHLORIDE 90 mmol/l (95-108); CREATININE 1.1 mg/dL (0.5-1.0); GFR 50 ML/MIN (>=60 (CALC)); GFR FOR AFR.AMER. > 60 ML/MIN (>=60 (CALC)); MAGNESIUM 1.5 mg/dL (1.6-2.3); POTASSIUM 3.7 mmol/l (3.5-5.1); SGOT/AST 28 u/l (9-36); SODIUM 134 mmol/l (137-146); TOTAL PROTEIN 6.9 g/dL (6.3-8.2)
--- NOTE | 2020-07-16 15:47 | NUR ---
PT UP WALKING AROUND ROOM. REPSIRAITONS ARE EVEN AND UNLABORED ON ROOM AIR. TELE MONITORING IN PLACE. PT COMPLAINS OF CRAMPING IN LEGS. FLEXIRIL ADMINISTERED. PT TOLERATED WELL. PT DENIES OF ANY ADDITIONAL NEEDS AT THIS TIME. WILL CONTINUE TO MONITOR
[2020-07-16 17:25] VITALS: BP 91/59
--- NOTE | 2020-07-16 19:15 | NUR ---
REPORT RECEIVED. ASSESSMENT COMPLETE. SAFETY MEASURES IN PLACE. CALL LIGHT WITHIN REACH.
[2020-07-16 19:47] VITALS: BP 88/60
--- NOTE | 2020-07-16 20:30 | NUR ---
PT CURRENT BP IS 88/60 HR 89 RR 18, ANTERIOR LUNG SOUNDS CLEAR THROUGHOUT, BLE EDEMA HAS DECREASED FROM 1+ PITTING EDEAN TO A RACE WITHOUT PITTING, TELE MONITOR IS SHOWING PACED WITH HR BETWEEN 80'S AND 90'S. HELD BUMETANIDE & CARVEDILOL D/T LOW BP, SPOKE TO DR ETIENNE AWARE OF FINDING AND GAVE OKAY TO HOLE FOR NOW.
--- NOTE | 2020-07-16 21:00 | NUR ---
PT DENIES ANY PAIN AT THIS TIME, REFUSED FLEXERIL AT THE TIME
[2020-07-17] VITALS (8 sets, daily range): BP systolic 84–104; BP diastolic 51–68
--- NOTE | 2020-07-17 04:00 | NUR ---
PATIENT SITTING AT BEDSIDE IN RECLINER, NO NEEDS OR CONCERN EXPRESSED AT THIS TIME. NO S/SX OF DISTRESS OR DISCOMFORT NOTED AT THIS TIME. SAFETY MEASURES IN PLACE, CALL LIGHT WITHIN REACH, WILL CONTINUE TO MONITOR
[2020-07-17 05:17] LABS: HEMATOCRIT 41.7 % (37.0-47.0); HEMOGLOBIN 13.4 g/dl (12.0-16.0); MEAN CELL VOLUME 94.3 fL CALC (80.0-100.0); MEAN CORPUSCULAR HGB 30.3 pG CALC (26.0-32.0); MEAN CORPUSCULAR HGB CONC 32.1 g/dL CAL (32.0-36.0); RED BLOOD COUNT 4.42 mill/uL (4.20-5.60); RED CELL DISTRI WIDTH 15.6 % (11.5-15.5)
[2020-07-17 05:39] LABS: ALBUMIN 4.1 g/dL (3.2-5.0); ALKALINE PHOSPHATASE 116 u/l (38-126); ANION GAP 11 (6-22 (CALC)); BILIRUBIN, TOTAL 1.9 mg/dL (0.0-1.4); BUN 21 mg/dL (8-23); BUN/CREATININE RATIO 20 (12-20 (CALC)); CARBON DIOXIDE 36 mmol/l (22-30); CHLORIDE 90 mmol/l (95-108); GFR 56 ML/MIN (>=60 (CALC)); GFR FOR AFR.AMER. > 60 ML/MIN (>=60 (CALC)); POTASSIUM 3.3 mmol/l (3.5-5.1); SGOT/AST 30 u/l (9-36); SODIUM 134 mmol/l (137-146); TOTAL PROTEIN 7.6 g/dL (6.3-8.2)
[2020-07-17 05:40] LABS: MAGNESIUM 1.9 mg/dL (1.6-2.3)
--- NOTE | 2020-07-17 07:30 | NUR ---
RECIEVED REPORT FROM JAIRO AMIN.
--- NOTE | 2020-07-17 08:11 | NUR ---
PT RESTING IN SEMI FOWLERS POSITION. INTRODUCED SELF AND DICUSSED POC. PT IS A/O X3. ASSESSMENT AND VITALS COMPLETED. BP 84/53, HR 78, O2 100% ON ROOM AIR. LUNG SOUNDS ARE CLEAR. HEART RHYTHM IS NORMAL, WITH TELE MONITORING IN PLACE, PACED PER ER MONITORING. BOWEL SOUNDS ARE ACTIVE IN ALL QUADRANTS, LAST REPORTED BM 07/13/20, PT COMPLAINS OF DISCOMFORT. NEW ORDERS TO BE OBTAINED. RADIAL PULSES STRONG. PEDAL PULSES WEAK.TRACE EDEMA NOTED TO BLE. #22G IN LEFT HAND FLUSHED, SITE APPEARS HEALTHY AND PATENT. PT DENIES OF ANY OTHER PAINS OR DISCOMFORTS. ALL SAFETY PRECAUTIONS ARE IN PLACE. WILL CONTINUE TO MONITOR.
--- NOTE | 2020-07-17 09:54 | NUR ---
ORDERED TO HOLD COREG. ALL OTHER MORNING MEDS ADMINISTERED. PT TOLERATED WELL. MOM ADMINISTERED. PT REQUEST TO INSERT SUPPOSITORY BY HER SELF. PT EDUACATED ON HOW PT.PT VERBALIZED UNDERSTANDING. WILL CONTINUE TO MONITOR.
--- NOTE | 2020-07-17 10:03 | NUR ---
REASSESSMENT OF BP RESULTING IN 96/67, HR 83
--- NOTE | 2020-07-17 10:30 | NUR ---
DR ETIENNE AT BEDSIDE DISCUSSING POC WITH PT
--- NOTE | 2020-07-17 12:15 | NUR ---
PT REPORTS SMALL FORMED BOWEL MOVEMENT. PT STATES " I FEEL LIKE MY BLADDER IS RETAINING." BLADDER SCAN COMPLETED RESULTING IN 200.TELE MONITORING REMAINS IN PLACE. PT DENIES OF ANY OTHER PAINS OR DISCOMFORTS AT THIS TIME. ALL SAFETY PRECAUTIONS ARE IN PLACE. WILL CONTINUE TO MONITOR
--- NOTE | 2020-07-17 15:55 | NUR ---
PT SITTING UP IN CHAIR. REPSIRATIONS ARE EVEN AND UNLABORED ON ROOM AIR. MAG INFUSING @10 ML/HR DUE TO PT COMPLAINS OF IT BURNING.#22G IN LEFT HAND APPEARS HEALTHY AND PATENT.TELE MONITORING IN PLACE. PT DENIES OF ANY PAINS OR DISCOMFORTS AT THIS TIME. ALL SAEFTY PRECAUTIONS ARE IN PLACE WITH CALL LIGHT IN REACH. WILL CONTINUE TO MONITOR.
--- NOTE | 2020-07-17 19:30 | NUR ---
RECEIVED REPORT FOR THIS PT AND SITTING UP IN RECLINER CHAIR WITH NO COMPLICATIONS NOTED. PT IS ALERT AND ORIENTED AND ABLE TO MAKE NEEDS KNOWN. PT LUNG SOUNDS ARE CLEAR AND EQUAL AND NON LABORED ON ROOM AIR. HAS +1 EDEMA IN BILATEERAL LOWER EXTREMITIES BUT PT STATES THE EDEMA IN LOWER EXTREMITIES IS BETTER. PT IS AMBULATORY. STATES THAT SHE HAD A SMALL BOWEL MOVEMENT THAT IS HARD IN CONSISTENCY. DENIES ANY COMPLICATIONS WITH URINATING. WILL CONTINUE TO OBSERVE
--- NOTE | 2020-07-18 | NUR ---
PT SITTING UP IN RECLINER CHAIR AT BEDSIDE. MEDIUM BOWEL MOVEMENT NOTED. MEDICATIONS GIVEN AND TOLERATED WELL. REQUESTED XANAX FOR ANXIETY AND EFFECTIVE. DENIES PAIN AND DISCOMFORT. CALL LIGTH WITHIN REACH. PT ON TELEMETRY AND NOTED WITH 12 RUN OF V-TACH. ASSESSED PT AND SHE STATED THAT SHE FELT OK AND HAD JUST COME FROM THE BATHROOM. WILL CONTINUE TO OBSERVE
[2020-07-18 00:25] VITALS: BP 102/66
[2020-07-18 04:00] VITALS: BP 82/50
--- NOTE | 2020-07-18 04:10 | NUR ---
PT IN BED WITH EYES CLOSED. NO S/S OF DISTRESS. CALL LIGHT WITHIN REACH. WILL CONTINUE TO OBSERVE
[2020-07-18 05:34] LABS: HEMATOCRIT 41.5 % (37.0-47.0); HEMOGLOBIN 13.4 g/dl (12.0-16.0); MEAN CORPUSCULAR HGB CONC 32.3 g/dL CAL (32.0-36.0); RED BLOOD COUNT 4.46 mill/uL (4.20-5.60); RED CELL DISTRI WIDTH 15.7 % (11.5-15.5)
[2020-07-18 06:04] LABS: ALBUMIN 3.8 g/dL (3.2-5.0); ALKALINE PHOSPHATASE 93 u/l (38-126); ANION GAP 11 (6-22 (CALC)); BILIRUBIN, TOTAL 2.4 mg/dL (0.0-1.4); BUN 18 mg/dL (8-23); BUN/CREATININE RATIO 17 (12-20 (CALC)); CARBON DIOXIDE 39 mmol/l (22-30); CHLORIDE 86 mmol/l (95-108); GFR 56 ML/MIN (>=60 (CALC)); GFR FOR AFR.AMER. > 60 ML/MIN (>=60 (CALC)); MAGNESIUM 1.8 mg/dL (1.6-2.3); POTASSIUM 3.2 mmol/l (3.5-5.1); SGOT/AST 27 u/l (9-36); SODIUM 133 mmol/l (137-146)
--- NOTE | 2020-07-18 07:45 | NUR ---
MD IN AND MADE AWARE OF LOW BP 82/52 AND ALSO MADE AWARE OF COREG NOT GIVEN AT HS WELL POTASSIUM OF 3.2 THIS AM. WILL CONTINUE TO OBSERVE
[2020-07-18 07:46] VITALS: BP 91/57
--- NOTE | 2020-07-18 07:46 | NUR ---
PT SLEEPING IN BED. AWAKENED TO COMPLETE ASSESSMENT. A&O X3. NO DISTRESS NOTED. PT C/O FEELING "TIRED" THIS MORNING. LAN/WAN ENGINEER IN PLACE. ASSESSMENT COMPLETED. DISCUSSED POC. CALL LIGHT LEFT WITHIN REACH.
--- NOTE | 2020-07-18 09:28 | NUR ---
DR ETIENNE AND Enmanuel EASLEY APRN AT BEDSIDE
[2020-07-18 10:30] VITALS: BP 92/61
--- NOTE | 2020-07-18 12:55 | NUR ---
DR COHEN AT BEDSIDE
[2020-07-18] MEDS ORDERED: COREG3.125 MG PO (13:34)
[2020-07-18] MEDS ORDERED: CYCLOBENZAPR5 MG PO (13:51)
[2020-07-18 15:30] VITALS: BP 93/69
--- NOTE | 2020-07-18 15:50 | NUR ---
IV INTACT UPON REMOVAL. D/C INSTRUCTIONS GIVEN TO PT.
--- NOTE | 2020-07-18 16:00 | NUR ---
Discharge instructions given. Patient verbalizes understanding of same. Discharged in stable condition via Wheelchair to Home with staff. All belongings sent with pt.
== END 2020-07-18 16:00 | disposition home or self-care (01) | DRG 292 ==
LOC: ED 00:04 → ED-I 02:05 → ED 02:18 → ED-I 02:19 → MS2 14:40
PROVIDERS: Emergency Medicine; Nurse Practitioner Family; ADMIT Internal Medicine; ATTEND Internal Medicine
DX: I11.0 Hypertensive heart disease with heart failure (principal); E87.1 Hypo-osmolality and hyponatremia; I50.23 Acute on chronic systolic (congestive) heart failure; I42.8 Other cardiomyopathies; I42.0 Dilated cardiomyopathy; I34.0 Nonrheumatic mitral (valve) insufficiency; I27.20 Pulmonary hypertension, unspecified; K21.9 Gastro-esophageal reflux disease without esophagitis; K44.9 Diaphragmatic hernia without obstruction or gangrene; I95.89 Other hypotension; E78.5 Hyperlipidemia, unspecified; E87.6 Hypokalemia; R25.2 Cramp and spasm; E83.42 Hypomagnesemia; E66.9 Obesity, unspecified; K59.00 Constipation, unspecified; G47.30 Sleep apnea, unspecified; F32.9 Major depressive disorder, single episode, unspecified; T50.2X5A Adverse effect of carbonic-anhydrase inhibitors, benzothiadiazides and other diuretics, initial encounter; T47.1X6A Underdosing of other antacids and anti-gastric-secretion drugs, initial encounter; Z68.29 Body mass index [BMI] 29.0-29.9, adult; Z91.128 Patient's intentional underdosing of medication regimen for other reason; Z86.73 Personal history of transient ischemic attack (TIA), and cerebral infarction without residual deficits; Z95.810 Presence of automatic (implantable) cardiac defibrillator; Z20.822 Contact with and (suspected) exposure to COVID-19
CPT/HCPCS: J3475; S0164

== ENCOUNTER 2020-07-20 13:41 | Emergency (ER) | payer OTHER ==
[~2020-07-20] VITALS: Ht 175.3 cm; Wt 90.0 kg
[~2020-07-20 13:41] MED LIST changes: +CYCLOBENZAPR5 MG PO
[2020-07-20 15:17] LABS: IMMATURE GRANULOCYTES 0.4 % (0.0-5.0); MEAN CELL VOLUME 92.3 fL CALC (80.0-100.0); MEAN CORPUSCULAR HGB 30.1 pG CALC (26.0-32.0); MEAN CORPUSCULAR HGB CONC 32.7 g/dL CAL (32.0-36.0); NEUT# 3.82 thou/uL (2.00-7.15); RED BLOOD COUNT 5.34 mill/uL (4.20-5.60); RED CELL DISTRI WIDTH 15.3 % (11.5-15.5)
[2020-07-20 15:18] LABS: HEMATOCRIT 49.3 % (37.0-47.0); HEMOGLOBIN 16.1 g/dl (12.0-16.0)
[2020-07-20 15:29] LABS: ALKALINE PHOSPHATASE 111 u/l (38-126); BILIRUBIN, TOTAL 2.3 mg/dL (0.0-1.4); BUN 23 mg/dL (8-23); BUN/CREATININE RATIO 16 (12-20 (CALC)); CHLORIDE 88 mmol/l (95-108); CREATININE 1.4 mg/dL (0.5-1.0); GFR 38 ML/MIN (>=60 (CALC)); GFR FOR AFR.AMER. 46 ML/MIN (>=60 (CALC)); POTASSIUM 3.3 mmol/l (3.5-5.1); SGOT/AST 39 u/l (9-36); SODIUM 132 mmol/l (137-146)
[2020-07-20 15:33] LABS: ALBUMIN 4.8 g/dL (3.2-5.0); ANION GAP 16 (6-22 (CALC)); CARBON DIOXIDE 31 mmol/l (22-30); TOTAL PROTEIN 9.2 g/dL (6.3-8.2)
[2020-07-20 18:30] VITALS: BP 100/59
== END 2020-07-20 18:30 | disposition short-term general hospital (02) | DRG 293 ==
LOC: ED 13:41
PROVIDERS: Family Medicine
DX: I11.0 Hypertensive heart disease with heart failure (principal); I50.23 Acute on chronic systolic (congestive) heart failure; K21.9 Gastro-esophageal reflux disease without esophagitis; Z86.73 Personal history of transient ischemic attack (TIA), and cerebral infarction without residual deficits; Z95.810 Presence of automatic (implantable) cardiac defibrillator; Z20.822 Contact with and (suspected) exposure to COVID-19
CPT/HCPCS: J1250

== ENCOUNTER 2021-06-12 10:17 | Observation (INO) | payer OTHER ==
[~2021-06-12] VITALS: Ht 175.3 cm; Wt 83.0 kg
--- NOTE | 2021-06-12 10:20 | NUR ---
TO ROOM VIA WHEELCHAIR, ACCOMPANIED BY DAUGHTER.
[2021-06-12 11:20] LABS: HEMATOCRIT 44.6 % (37.0-47.0); HEMOGLOBIN 14.1 g/dl (12.0-16.0); IMMATURE GRANULOCYTES 0.2 % (0.0-5.0); MEAN CELL VOLUME 98.2 fL CALC (80.0-100.0); MEAN CORPUSCULAR HGB 31.1 pG CALC (26.0-32.0); MEAN CORPUSCULAR HGB CONC 31.6 g/dL CAL (32.0-36.0); NEUT# 4.78 thou/uL (2.00-7.15); RED BLOOD COUNT 4.54 mill/uL (4.20-5.60); RED CELL DISTRI WIDTH 16.7 % (11.5-15.5)
[2021-06-12 11:31] LABS: ALBUMIN 4.5 g/dL (3.2-5.0); ALKALINE PHOSPHATASE 157 u/l (38-126); AMYLASE 89 u/l (30-110); ANION GAP 15 (6-22 (CALC)); BILIRUBIN, TOTAL 2.4 mg/dL (0.0-1.4); BUN 25 mg/dL (8-23); BUN/CREATININE RATIO 23 (12-20 (CALC)); CARBON DIOXIDE 27 mmol/l (22-30); CHLORIDE 103 mmol/l (95-108); CREATININE 1.1 mg/dL (0.5-1.0); GFR 50 ML/MIN (>=60 (CALC)); GFR FOR AFR.AMER. > 60 ML/MIN (>=60 (CALC)); LIPASE 43 u/l (23-300); SGOT/AST 33 u/l (9-36); SODIUM 140 mmol/l (137-146)
[2021-06-12 11:32] LABS: POTASSIUM 4.7 mmol/l (3.5-5.1)
[2021-06-12 11:44] LABS: MYOGLOBIN 33 ng/mL (0 - 62)
--- NOTE | 2021-06-12 12:09 | NUR ---
ASSISTED PT TO BEDSIDE CHAIR. CALL LIGHT WITHIN REACH. VSS. IV SITE HEALTHY.
--- NOTE | 2021-06-12 14:30 | NUR ---
Reassessment of patient completed. No distress noted.
[2021-06-12 16:22] LABS: URINE BLOOD DIPSTICK TRACE-INTACT (NEGATIVE); URINE GLUCOSE - DIPSTICK NEGATIVE (NEGATIVE); URINE KETONE TRACE mg/dL (NEGATIVE); URINE LEUK ESTERASE NEGATIVE (NEGATIVE); URINE PROTEIN - DIPSTICK 100 mg/dL (NEG-TRACE); URINE SPECIFIC GRAVITY >=1.030
[2021-06-12 16:25] LABS: URINE BILIRUBIN - DIPSTICK MODERATE (NEGATIVE); URINE COLOR AMBER; URINE NITRITE - DIPSTICK POSITIVE (Negative)
[2021-06-12 16:33] LABS: URINE BACTERIA RARE hpf; URINE RBC 0-2 RBC/hpf (0-5); URINE SQUAMOUS EPITHELIAL CELL MODERATE EPI/hpf (0-FEW); URINE WBC 0-2 WBC/hpf (0-5)
--- NOTE | 2021-06-12 17:52 | NUR ---
REPORT GIVEN TO KIMBERLEE WALTERS
[2021-06-12] MEDS ORDERED: METOPROL TAR25 MG PO (18:04)
[2021-06-12] MEDS ORDERED: DIGOXIN0.125 MG PO (18:06)
[2021-06-12] MEDS ORDERED: POT CHLORIDE8 ME1 PO (18:10)
[2021-06-12] MEDS ORDERED: ESCITALOPRAM OX10 MG PO (18:12)
[2021-06-12] MEDS ORDERED: ZOFRAN4 MG/TAB PO (18:15)
[2021-06-12 19:25] VITALS: BP 135/74
--- NOTE | 2021-06-12 20:00 | NUR ---
PT ARRIVED TO MS2 VIA WHEELCHAIR, PT ALERT AND ORIENTED X4, ORIENTED TO ROOM AND CALL LIGHT, DISCUSSED POC, PT VERBALIZED UNDERSTANDING. IV SITE TO RFA SL, FLUSHED WELL. NOTED +2 PITTING EDEMA TO BLE, SKIN INTACT.TELE BOX # [id number] PT SOB ON EXERTION, ABD SOFT/DISTENDED, DISCUSSED PROCEDURE IN AM, NPO AFTER MIDNIGHT, PT AGREES. ADMISSION ASSESSMENT COMPLETED, CALL LIGHT IN REACH,CONTINUE TO MONITOR.
[2021-06-12 23:56] VITALS: BP 110/72
--- NOTE | 2021-06-13 00:22 | NUR ---
PT CALLED AND DECIDED TO TAKE IV BUMEX THAT WAS INITIALLY DECLINED PRIOR. PT MEDICATED. NO SIGNS OF DISTRESS NOTED, RESP EVEN AND UNLABORED. BSC PLACED AT BEDSIDE. CALL LIGHT WITHIN REACH, WARM BLANKETS PROVIDED. CONTINUE TO MONITOR.
--- NOTE | 2021-06-13 01:45 | NUR ---
PT CALLED, ENTERED ROOM PT SITTING ON BSC TRIPOD WITH BEDSIDE TABLE, PT SOB, O2 SATS 97% DECLINED 02. PT STATES SHE NORMALLY TAKES 2MG OF BUMEX AND IT HELPS, PT CONCERNED THAT SHE ONLY RECEIVED THE 1MG AND HAS NOT VOIDED. CALL MADE TO MD AND ORDER OBTAINED FOR ADDITIONAL 1MG IV BUMEX. ENAMEL PULVERIZER STAYED WITH PT UNTIL SHE BEGAN TO VOID. CALL LIGHT IN REACH,CONTINUE TO MONITOR.
--- NOTE | 2021-06-13 04:30 | NUR ---
PT SITTING ON BSC, AM LABS OBTAINED VIA VENIPUNCTURE, PT VOICES NO NEEDS OR COMPLAINTS AT THIS TIME, CALL LIGHT IN REACH,CONTINUE TO MONITOR.
[2021-06-13 04:31] VITALS: BP 101/56
[2021-06-13 05:14] LABS: HEMATOCRIT 39.6 % (37.0-47.0); MEAN CELL VOLUME 94.7 fL CALC (80.0-100.0); MEAN CORPUSCULAR HGB 31.1 pG CALC (26.0-32.0); MEAN CORPUSCULAR HGB CONC 32.8 g/dL CAL (32.0-36.0); RED BLOOD COUNT 4.18 mill/uL (4.20-5.60); RED CELL DISTRI WIDTH 16.2 % (11.5-15.5)
[2021-06-13 05:28] LABS: CREATININE 1.4 mg/dL (0.5-1.0); MAGNESIUM 1.8 mg/dL (1.6-2.3); POTASSIUM 4.6 mmol/l (3.5-5.1)
--- NOTE | 2021-06-13 05:30 | NUR ---
IV CIPRO INITIATED, PT SITTING IN RECLINER AT BEDSIDE, CALL LIGHT IN REACH,CONTINUE TO MONITOR.
--- NOTE | 2021-06-13 06:48 | NUR ---
PT MOVED TO WARMER ROOM
--- NOTE | 2021-06-13 08:48 | NUR ---
pt sleeping in bed. awakened to complete assessment. pt a&o x4. no distress noted. pt requesting to have this handbook writer come back later as she did not have a lot of sleep last night. Pt also requesting to have repeat lactic acid drawn later as well. Refusing Bumex at this time; low bp systolically in the 70's but asymptomatic. Willi Hooker APRN notified, no new orders at this time. no other needs at this time. call light within reach.
--- NOTE | 2021-06-13 09:43 | NUR ---
PT TAKEN VIA WC ACCOMPANIED BY E NOTT OPERATIONS SUPPORT REPRESENTATIVE IN STABLE CONDITION.
--- NOTE | 2021-06-13 10:40 | NUR ---
PT ARRIVED VIA WC ACCOMPANIED BY Katherine AGUDELO CNA IN STABLE CONDITION BACK FROM US. ASSESSMENT COMPLETED AT THIS TIME. CALL LIGHT LEFT WITHIN REACH.
[2021-06-13 11:30] VITALS: BP 103/64
--- NOTE | 2021-06-13 12:20 | NUR ---
pt eating lunch. no other needs at this time. call light within reach.
[2021-06-13] MEDS ORDERED: CIPROFLOXACN500 MG PO (12:39)
--- NOTE | 2021-06-13 15:35 | NUR ---
Discharge instructions given. Patient verbalizes understanding of same. Discharged in stable condition via wheelchair to home with staff. All belongings sent with pt. IV intact upon removal.
== END 2021-06-13 15:35 | disposition home or self-care (01) | DRG 292 ==
LOC: ED 10:17 → ED-I 15:50 → ED 16:36 → MS2 16:37
PROVIDERS: Emergency Medicine; ADMIT Hospitalist; ATTEND Hospitalist
DX: I11.0 Hypertensive heart disease with heart failure (principal); R18.8 Other ascites; E87.2 Acidosis; N39.0 Urinary tract infection, site not specified; I50.9 Heart failure, unspecified; I42.8 Other cardiomyopathies; R16.0 Hepatomegaly, not elsewhere classified; I87.8 Other specified disorders of veins; I48.91 Unspecified atrial fibrillation; I34.8 Other nonrheumatic mitral valve disorders; K21.9 Gastro-esophageal reflux disease without esophagitis; F41.9 Anxiety disorder, unspecified; B96.4 Proteus (mirabilis) (morganii) as the cause of diseases classified elsewhere; Z86.73 Personal history of transient ischemic attack (TIA), and cerebral infarction without residual deficits; Z95.810 Presence of automatic (implantable) cardiac defibrillator; Z79.01 Long term (current) use of anticoagulants; Z20.822 Contact with and (suspected) exposure to COVID-19
CPT/HCPCS: G0378; S0164

== ENCOUNTER 2021-07-13 22:40 | Observation (INO) | payer OTHER ==
[~2021-07-13] VITALS: Ht 175.3 cm; Wt 75.2 kg
[~2021-07-13 22:40] MED LIST changes: +CIPROFLOXACN500 MG PO; +DIGOX250 MCG PO; +ESCITALOPRAM OX10 MG PO; +METOPROL TAR25 MG PO; +POTASSIUM CHLO20 ME2 PO; +ZOFRAN4 MG/TAB PO
--- NOTE | 2021-07-13 22:45 | NUR ---
TO ROOM 11 VIA W/C WITH DAUGHTER. TRIAGED AT BEDSIDE
--- NOTE | 2021-07-13 23:07 | NUR ---
PT HAVING NAUSEA WITH SOME EMESIS OF CLEAR TENACIOUS MUCOUS.
--- NOTE | 2021-07-13 23:37 | NUR ---
IV STARTED AND MEDICATED FOR NAUSEA ORDERED, DAUGHTER REMAINS AT BEDSIDE TO RADIOLOGY ORDERED
[2021-07-13 23:40] LABS: HEMATOCRIT 41.9 % (37.0-47.0); HEMOGLOBIN 13.3 g/dl (12.0-16.0); IMMATURE GRANULOCYTES 0.2 % (0.0-5.0); MEAN CELL VOLUME 98.4 fL CALC (80.0-100.0); MEAN CORPUSCULAR HGB 31.2 pG CALC (26.0-32.0); MEAN CORPUSCULAR HGB CONC 31.7 g/dL CAL (32.0-36.0); NEUT# 4.3 thou/uL (2.00-7.15); RED BLOOD COUNT 4.26 mill/uL (4.20-5.60); RED CELL DISTRI WIDTH 16.2 % (11.5-15.5)
[2021-07-13 23:54] LABS: ALKALINE PHOSPHATASE 125 u/l (38-126); AMYLASE 65 u/l (30-110); ANION GAP 14 (6-22 (CALC)); BILIRUBIN, TOTAL 2.7 mg/dL (0.0-1.4); BUN 31 mg/dL (8-23); BUN/CREATININE RATIO 23 (12-20 (CALC)); CARBON DIOXIDE 30 mmol/l (22-30); CHLORIDE 99 mmol/l (95-108); CREATININE 1.3 mg/dL (0.5-1.0); GFR 41 ML/MIN (>=60 (CALC)); GFR FOR AFR.AMER. 50 ML/MIN (>=60 (CALC)); LIPASE 48 u/l (23-300); SGOT/AST 33 u/l (9-36); SODIUM 139 mmol/l (137-146); TOTAL PROTEIN 7.9 g/dL (6.3-8.2)
[2021-07-14 00:06] LABS: MYOGLOBIN 40 ng/mL (0 - 62)
--- NOTE | 2021-07-14 00:56 | NUR ---
PT REQUESTS TO INSERT SUPPOSITORIES ON HER OWN. AWARE AND OK, PT ALSO REFUSED COVID AND FLU SWABS, MD AWARE.
--- NOTE | 2021-07-14 01:04 | NUR ---
SUPPOSITORY INSERTION COMPLETE PER PT, BEDSIDE COMMODE AT BEDSIDE PER PT REQUEST.
--- NOTE | 2021-07-14 01:57 | NUR ---
MEDICATED FOR CONTINUED NAUSEA AND PAIN, DAUGHTER REMAINS AT BEDSIDE.
[2021-07-14] MEDS ORDERED: LORTAB 1010 MG PO (02:08)
[2021-07-14] MEDS ORDERED: ONDANSETRON4 MG PO (02:08)
[2021-07-14] MEDS ORDERED: MIRALAX17 GM PO (02:08)
--- NOTE | 2021-07-14 02:57 | NUR ---
pt aware of planned admission and hold in ER, will provide bed for comfort.
[2021-07-14 06:36] LABS: URINE BILIRUBIN - DIPSTICK NEGATIVE (NEGATIVE); URINE BLOOD DIPSTICK TRACE-INTACT (NEGATIVE); URINE COLOR YELLOW; URINE GLUCOSE - DIPSTICK NEGATIVE (NEGATIVE); URINE KETONE NEGATIVE (NEGATIVE); URINE LEUK ESTERASE NEGATIVE (NEGATIVE); URINE PH 5.5 (4.5-8.0); URINE PROTEIN - DIPSTICK NEGATIVE (NEG-TRACE)
[2021-07-14 06:53] LABS: URINE NITRITE - DIPSTICK NEGATIVE (Negative)
--- NOTE | 2021-07-14 07:00 | NUR ---
RECEIVED REPORT FROM MATHEUS WALTERS.
[2021-07-14] MEDS ORDERED: METOPROL TAR25 MG PO (09:17)
[2021-07-14] MEDS ORDERED: CARAFATE1 GM PO (09:17)
--- NOTE | 2021-07-14 09:25 | NUR ---
DR HEMPHILL AT BEDSIDE
--- NOTE | 2021-07-14 09:55 | NUR ---
PT AMBULATED TO BATHROOM WITH STEADY GAIT
[2021-07-14 11:30] VITALS: BP 119/62
--- NOTE | 2021-07-14 11:30 | NUR ---
RESTING IN HIGH FOWLERS POSITION, RESPS EVEN AND UNLABORED ON ROOM AIR. VSS, MONITORS ATTACHED. DENIES NEEDS AT THIS TIME.
--- NOTE | 2021-07-14 16:34 | NUR ---
REPORT RECIEVED FROM SELENA KNIGHT
--- NOTE | 2021-07-14 16:36 | NUR ---
CALLED REPRT TO [facility] NUR
--- NOTE | 2021-07-14 16:59 | NUR ---
PT TRANSPORTED TO [facility] VIA STRETCHER IN NO DISTRESS
--- NOTE | 2021-07-14 17:00 | NUR ---
TO MED SURG VIA BED, TELE MONITOR IN PLACE
--- NOTE | 2021-07-14 17:04 | NUR ---
PT ARRIVED VIA STRETCHER WITH SELENA CHRISTIANSON RA., iv on 22LAC, FLUSHED WITH NO RESISTANCE.[id number] PT TO ROOM. CALL LIGHT WITHINR EACH
[2021-07-14 19:00] VITALS: BP 95/63
--- NOTE | 2021-07-14 19:44 | NUR ---
1900-Report received from daysorft nurse via sbar format. Patient is stable, sitting in a chair, meal trade at bedside, encouraged to eat. A&Ox4, will follow up closely, call mixon at reach, no needs voiced at this time.
--- NOTE | 2021-07-14 20:30 | NUR ---
SPOKE TO MD HEMPHILL ABOUT PT C/O ABDOMINAL PAIN, REQUESTING DILAUDID IV, REFUSES ANY PO MEDICATIONS D/T NAUSEA, ZOFRAN PREVIOUSLY ADMINISTERED, STATES "IS NOT HELPING." REQUESTING PHENERGAN IV. WAITING FOR MD ORDERS. ADDRESSED ABNORMAL LABS WITH MD HEMPHILL, ADDRESSED NEXT TROPONIN DUE UNTIL MIDNIGHT.
[2021-07-14 23:02] VITALS: BP 111/68
--- NOTE | 2021-07-14 23:10 | NUR ---
PAIN REASSESSMENT IS 10 WAS 7/10 AFTER DILAUDID IV, SOME LABORED BREATHING NOTED, OXYGEN SATURATION READING 96% ON ROOM AIR, PATIENT IS SITTING IN THE RECLINER, PROVIDED A PILLOW AND ELEVATED BLE.
--- NOTE | 2021-07-15 00:42 | NUR ---
PT IS AWAKE, WATCHING TV, RESTING IN RECLINER WITH BLE ELEVATED ON A PILLOW, STATES ABDOMINAL PAIN IS 3/10 FROM 7/10, NO S/S OF DISTRESS NOTED, RESP ARE EVEN AND UNLABORED, ENCOURAGED TO CALL IF NEEDED, VOICES UNDERSTANDING, CALL THOMAS AT REACH, DENIES NEED TO USE BSC AT THIS TIME. WILL FOLLOW UP WITH HOURLY ROUNDING.
[2021-07-15 04:00] VITALS: BP 101/62
--- NOTE | 2021-07-15 04:12 | NUR ---
PT IS AWAKE, SENIOR UI SOFTWARE ENGINEER IN PT ROOM FOR VITAL SIGNS. PT IS RESTING IN RECLINER, C/O MID ABDOMINAL PAIN, NO N/V, RATES PAIN AT 3/10, RESP ARE EVEN AND UNLALBORED, NO S/S OF DISTRESS NOTED, EDUCATED ABOUT PAIN MEDICATION TIMES/SCHEDULE, VOICES UNDERSTANDING, ENCOURAGED TO CALL IF NEEDED, CALL THOMAS AT REACH, WILL FOLLOW UP WITH HOURLY ROUNDINGS.
--- NOTE | 2021-07-15 04:44 | NUR ---
c/o abdominal pain, rates it at 7/10, aching to mid abdomen nonradiating, medicated with dilaudid iv and phenergan per MD orders, will follow up with reassessment, call mixon at reach.
--- NOTE | 2021-07-15 05:20 | NUR ---
PATIENT RATES PAIN AT 3/10, RESP ARE EVEN AND UNLABORED, NO S/S OF DISTRESS, CALL THOMAS AT REACH, RESTING IN RECLINER, BLE ELEVATED.
[2021-07-15 06:01] LABS: HEMATOCRIT 40.4 % (37.0-47.0); HEMOGLOBIN 13.1 g/dl (12.0-16.0); MEAN CELL VOLUME 96.4 fL CALC (80.0-100.0); MEAN CORPUSCULAR HGB 31.3 pG CALC (26.0-32.0); MEAN CORPUSCULAR HGB CONC 32.4 g/dL CAL (32.0-36.0); RED BLOOD COUNT 4.19 mill/uL (4.20-5.60); RED CELL DISTRI WIDTH 16.3 % (11.5-15.5)
[2021-07-15 06:24] LABS: CREATININE 1.3 mg/dL (0.5-1.0); MAGNESIUM 1.4 mg/dL (1.6-2.3); POTASSIUM 3.7 mmol/l (3.5-5.1)
--- NOTE | 2021-07-15 06:45 | NUR ---
PT IS RESTING IN RECLINER, STATES "PAIN IS BETTER" NO S/S OF DISTRESS NOTED, RESP ARE EVEN AND UNLABORED, NO N/V NOTED OR VOICED, CALL THOMAS AT REACH, WILL CONTINUE TO MONITOR.
[2021-07-15 07:31] VITALS: BP 97/58
--- NOTE | 2021-07-15 09:00 | NUR ---
PT IN RECLINER WATCHING TV. A&O X3. EVEN AND UNLABORED RESPIRATIONS. ACTIVE BOWEL SOUNDS X4 QUADRANTS. EDEMA +1 ON BILATERAL ANKLES. NO DISTRESS NOTED. PT DENIES PAIN AT THE MOMENT. CALL LIGHT WITHIN REACH.
--- NOTE | 2021-07-15 13:21 | NUR ---
PT SITTING IN RECLINER ACCOMPANIED BY VISITOR. NO DISTRESS NOTED. APPLIED DNR BRACELET ON RIGHT ARM. TELEMETRY IN PLACED.
--- NOTE | 2021-07-15 15:55 | NUR ---
PT C/O DIZZINESS AND NAUSEA. BP 91/72 @1430; BP 92/64 @1540. OFFERED MEDICATION FOR NAUSEA, BUT PT REFUSED; PT STATES, "I'M NOT GOING TO TAKE ANYTHING IF I'M STILL DIZZY". DR HEMPHILL WAS NOTIFIED.
--- NOTE | 2021-07-15 17:18 | NUR ---
PT REASSESSED AFTER COMPLAINTS OF LIGHTHEADEDNESS/NAUSEA. PT REFUSES MEDICATIONS TO ASSIST WITH SYMPTOMS INCLUDING PRN SCOPALAMINE PATCH. PER PTS REQUEST SHE DOES NOT WANT TO TAKE ALDACTONE ANYMORE; REPORTS THIS HAS HAPPENED IN THE PAST WITH THIS MEDICATION. AFTER ASKING PATIENT IF ANYTHING ELSE COULD BE PROVIDED BY THIS NURSE PT STATING "I JUST WANT TO GET SOME REST", THIS RN NAVIGATOR APOLOGETIC AT THIS TIME FOR UNRELIEVED SYMPTOMS, PT STATING "IT IS OKAY IT IS NOT YOUR FAULT". CALL LIGHT LEFT WITHIN REACH. PT ENCOURAGED TO CALL WHEN WANTING TO GET OOB.
[2021-07-15 17:38] VITALS: BP 98/64
[2021-07-15 19:00] VITALS: BP 99/60
--- NOTE | 2021-07-15 20:05 | NUR ---
PATIENT RESTING IN BED AT THIS TIME WITH ALL LIGHTS OUT. PATIENT IS AWAKE ALERT AND ORIENTED. APPEARS DOWN AND DEPRESSED. TELE MONITOR IN PLACE AND LAST READING SHOWING PACED IN 60'S' SALINE LOCK TO LEFT AC INTACT AND HEALTHY AT THIS TIME. PATIENT UP TO THE BR TO VOID 150CC OF YELLOW URINE. PATIENT IS SLOW BUT STEADY ON HER FEET AND RETURNEC TO BED. STATES THAT SHE DID HAVE BM THIS MORNING. LUNGS ARE CLEAR AT THIS TIME. ABD WITH SLIGHT DISTENSION BUT SOFT. BS+. TRACE BLE SWELLING-PULSES ARE PALPABLE. SAFETY PRECAUTIONS REINFORCED. CALL LIGHT IN REACH. WILL CONT TO MONITOR.
--- NOTE | 2021-07-15 21:01 | NUR ---
PATIENT RESTING IN BED AT THIS TIME-ELIQUIS 5MG PO GIVEN ORDERED. PATIENT REFUSED BUMEX 2MG PO ORDERED. PATIENT PROVIDED WITH APPLE JUICE PER PATIENT REQUEST. CALL LIGHT IN REACH. WILL CONT TO MONITOR.
[2021-07-16] VITALS: BP 94/54
--- NOTE | 2021-07-16 00:30 | NUR ---
PATIENT POSITIONED ON LEFT SIDE WITH EYES CLOSED. RESPS ARE EVEN AND UNLABORED AT THIS TIME. TELE MONITOR IN PLACE-LAST READING WAS PACED. CALL LIGHT IN REACH. WILL CONT TO MONITOR.
[2021-07-16 04:00] VITALS: BP 98/66
--- NOTE | 2021-07-16 04:10 | NUR ---
PATIENT SITTING UP ON THE SIDE OF THE BED AT THIS TIME EATING SALAD THAT WAS SAVED IN THE REFRIDGE FROM YESTERDAY-APPETITE IS FAIR-TOLERATING OK SO FAR. PATIENT WITH TELE MONITOR IN PLACE. SALINE LOCK TOP LAC INTACT. PATIENT STATES THAT SHE DOESN'T THINK SHE CAN TAKE THAT ALDACTONE THIS MORNING-STATES THAT SHE DOES NOT TOLERATE IT WELL. ENCOURAGED PATIENT TO DISCUSS THIS WITH MD THIS MORNING. VERBALIZES UNDERSTANDING. SAFETY PRECAUTIONS REINFORCED. CALL LIGHT IN REACH. WILL CONT TO MONITOR.
[2021-07-16 05:31] LABS: HEMATOCRIT 39.1 % (37.0-47.0); HEMOGLOBIN 12.8 g/dl (12.0-16.0); MEAN CELL VOLUME 96.3 fL CALC (80.0-100.0); MEAN CORPUSCULAR HGB 31.5 pG CALC (26.0-32.0); MEAN CORPUSCULAR HGB CONC 32.7 g/dL CAL (32.0-36.0); RED BLOOD COUNT 4.06 mill/uL (4.20-5.60); RED CELL DISTRI WIDTH 16.2 % (11.5-15.5)
[2021-07-16 05:42] LABS: CREATININE 1.3 mg/dL (0.5-1.0); MAGNESIUM 1.3 mg/dL (1.6-2.3)
[2021-07-16 07:15] VITALS: BP 98/68
--- NOTE | 2021-07-16 07:54 | NUR ---
SHIFT CHANGE REPORT, PT AWAKE ALERT AND ORIENTED SITTING UP IN RECLINER, C/O MILD PAIN TO ABD, TELE MONITOR IN PLACE AND CALL THOMAS IN RECH.
[2021-07-16 10:30] VITALS: BP 90/56
--- NOTE | 2021-07-16 12:46 | NUR ---
SITTING UP IN RECLINER, NEW ORDER OF IV MAGNESIUM INFUSING, PT C/O BURNING, ICE PACK APPLIED, PT REPORTED RELIEF, CALL THOMAS IN REACH WILL CONTINUE TO MONITOR.
[2021-07-16 15:40] VITALS: BP 94/55
--- NOTE | 2021-07-16 16:13 | NUR ---
RELAXING IN RECLINER, ALL NEEDS ADDRESSED, NO C/O DISCOMFORT, WILL CONTINUE TO MONITOR.
--- NOTE | 2021-07-16 19:34 | NUR ---
PT SITTING UP IN RECLINER. ASSESSMENT COMPLETED AT THIS TIME. SHE REPORTS STILL ACTIVELY GETTING TO BSC FOR INCREASED URINE OUTPUT. 1+ EDEMA TO RLE/2+ TO LLE. NO S/O DISTRESS OR SOB OBSERVED AT THIS TIME. MEDICATION SCHEDULE DISCUSSED, SHE STATES THAT SHE DOES NOT WANT TO TAKE THE BUMEX AFTER 6PM.
[2021-07-16 20:08] VITALS: BP 83/51
--- NOTE | 2021-07-16 21:35 | NUR ---
Pt medicated as orders provide and for pain reportedly in mid abd and leg cramps. Pt also requested anxiety medication/provided. Snack, juice and mirilax provided at this time. Encouraged her to call as needs arise. Call light within reach.
[2021-07-17 00:35] VITALS: BP 94/49
--- NOTE | 2021-07-17 04:30 | NUR ---
pt medicated for mid abd pain and nausea. Pt sitting in recliner. I did talk her into elevating her feet. Call light at bedside. PARKING LOT ATTENDANT AND CASHIER in obtaining v/s.
--- NOTE | 2021-07-17 04:36 | NUR ---
FIELD CASHIER reported that pt requested daily weight to be obtained at a later time due to her being settled in the recliner at this time and not feeling well.
[2021-07-17 05:18] VITALS: BP 84/52
--- NOTE | 2021-07-17 05:30 | NUR ---
PT REPORTS FEELING A LITTLE BETTER WITH THE PROVIDED MEDICATIONS. DENIES ANY OTHER NEEDS AT THIS TIME.
[2021-07-17 05:50] LABS: CREATININE 1.2 mg/dL (0.5-1.0); POTASSIUM 4.2 mmol/l (3.5-5.1)
[2021-07-17 05:51] LABS: HEMATOCRIT 39.6 % (37.0-47.0); HEMOGLOBIN 12.8 g/dl (12.0-16.0); MEAN CELL VOLUME 97.3 fL CALC (80.0-100.0); MEAN CORPUSCULAR HGB 31.4 pG CALC (26.0-32.0); MEAN CORPUSCULAR HGB CONC 32.3 g/dL CAL (32.0-36.0); RED BLOOD COUNT 4.07 mill/uL (4.20-5.60); RED CELL DISTRI WIDTH 16.3 % (11.5-15.5)
[2021-07-17 06:06] LABS: MAGNESIUM 1.9 mg/dL (1.6-2.3)
[2021-07-17 08:32] VITALS: BP 86/51
--- NOTE | 2021-07-17 08:32 | NUR ---
PATIENT IS SITTING IN THE RECLINER . ASSESSMENT DONE. PATIENT IS ALERT AND ORIENT X3. TELE IN PLACE. PATIENT STATED SHE FEELS BETTER TODAY DENIES SOB. +2 EDEMA IN LEGS. PATIENT REFUSED TO ELEVATED HER LEGS AT THIS TIME. CALL LIGHT IN REACH. DR. ETIENNE AND BARBIE STEEN IN ROOM DISCUSS POC WITH PATIENT.
[2021-07-17] MEDS ORDERED: MAGOX 400400 MG PO (08:44)
[2021-07-17] MEDS ORDERED: SENNA PLUS 50-81 CAP PO (08:45)
--- NOTE | 2021-07-17 10:04 | NUR ---
ED CALLED PATIENT READING 6 BEAT VTACH. VS OBTAIN P-83, 105/56, AND 94% RA. PATIENT DENIES DISTRESS. CALL LIGHT IN REACH. NOTIFIED BARBIE STEEN AND GAVE HIM THE TELE STRIP READINGS. NO NEW ORDERS RECEIVED AT THIS TIME.
[2021-07-17 10:20] VITALS: BP 97/74
--- NOTE | 2021-07-17 12:12 | NUR ---
PATIENT IS SITTING IN THE RECLINER EATING HER LUNCH WITH NO DISTRESS NOTED. PATIENT STATED DAUGHTER WILL BE BACK LATER TO PICK HER UP FOR DC. PATIENT DENIES NEEDS. CALL LIGHT IN REACH.
--- NOTE | 2021-07-17 14:54 | NUR ---
S- Pt reported some abdominal discomfort. Going home today. 0- Pt sitting in chair watching TV. She agreed to participate in treatment. She was able to stand from chair indep walk 15' to bed. Sit to and from supine was indep without use of bed rails. Rolling side to side was indep. Ambulation room without device x 60' without LOB noted. Pt left in chair with call mixon and bedside tray in reach. Gait belt and shoes in place during treatment. BP 87/62 to 91/53, pt denied lightheadedness. HR 88 to 95, 02 sats 97 to 98%. Time spent with pt 30 min 0- [facility] 19 home P- Pt for d/c today.
--- NOTE | 2021-07-17 16:10 | NUR ---
Discharge instructions given. Patient verbalizes understanding of same. Discharged in stable condition via Wheelchair to Home with family. All belongings sent with pt.
== END 2021-07-17 16:10 | disposition home or self-care (01) | DRG 292 ==
LOC: ED 22:40 → ED-I 07-14 02:24 → ED 07-14 02:39 → ED-I 07-14 02:40 → MS2 07-14 17:15
PROVIDERS: Emergency Medicine; ADMIT Hospitalist; ATTEND Hospitalist
DX: I11.0 Hypertensive heart disease with heart failure (principal); R18.8 Other ascites; E87.2 Acidosis; I50.22 Chronic systolic (congestive) heart failure; K76.1 Chronic passive congestion of liver; E83.42 Hypomagnesemia; I42.9 Cardiomyopathy, unspecified; I48.91 Unspecified atrial fibrillation; K21.9 Gastro-esophageal reflux disease without esophagitis; K59.00 Constipation, unspecified; F41.9 Anxiety disorder, unspecified; F32.A Depression, unspecified; Z86.73 Personal history of transient ischemic attack (TIA), and cerebral infarction without residual deficits; Z95.810 Presence of automatic (implantable) cardiac defibrillator; Z91.19 Patient's noncompliance with other medical treatment and regimen; Z20.822 Contact with and (suspected) exposure to COVID-19
CPT/HCPCS: G0378; J3475

== ENCOUNTER 2021-09-09 16:08 | Emergency (ER) | payer OTHER ==
[~2021-09-09] VITALS: Ht 175.3 cm; Wt 72.7 kg
[2021-09-09] VITALS (8 sets, daily range): BP systolic 94–118; BP diastolic 64–82
[~2021-09-09 16:08] MED LIST changes: +CARAFATE1 GM PO; +LORTAB 1010 MG PO; +MAGOX 400400 MG PO; +MIRALAX17 GM PO; +SENNA PLUS 50-81 CAP PO
[2021-09-09 16:54] LABS: HEMATOCRIT 40.3 % (37.0-47.0); HEMOGLOBIN 12.7 g/dl (12.0-16.0); IMMATURE GRANULOCYTES 0.5 % (0.0-5.0); MEAN CELL VOLUME 99.5 fL CALC (80.0-100.0); MEAN CORPUSCULAR HGB 31.4 pG CALC (26.0-32.0); MEAN CORPUSCULAR HGB CONC 31.5 g/dL CAL (32.0-36.0); NEUT# 4.24 thou/uL (2.00-7.15); RED BLOOD COUNT 4.05 mill/uL (4.20-5.60); RED CELL DISTRI WIDTH 17.7 % (11.5-15.5)
[2021-09-09 18:05] LABS: ALKALINE PHOSPHATASE 109 u/l (38-126); AMYLASE 74 u/l (30-110); BILIRUBIN, TOTAL 3.1 mg/dL (0.0-1.4); BUN 31 mg/dL (8-23); BUN/CREATININE RATIO 18 (12-20 (CALC)); CHLORIDE 100 mmol/l (95-108); CREATININE 1.7 mg/dL (0.5-1.0); GFR 30 ML/MIN (>=60 (CALC)); GFR FOR AFR.AMER. 37 ML/MIN (>=60 (CALC)); LIPASE 46 u/l (23-300); POTASSIUM 3.9 mmol/l (3.5-5.1); SGOT/AST 32 u/l (9-36); SODIUM 137 mmol/l (137-146)
[2021-09-09 18:06] LABS: ANION GAP 19 (6-22 (CALC)); CARBON DIOXIDE 22 mmol/l (22-30)
[2021-09-09 18:07] LABS: ACT PARTIAL THROMBO TIME 26.5 SECONDS (20.0-32.5)
[2021-09-09 18:09] LABS: INTERNATIONAL NORMALIZED RATIO 1.5 RATIO (0.7-1.3); PROTHROMBIN TIME 15.4 SECONDS (9.0-12.5)
== END 2021-09-09 21:10 | disposition short-term general hospital (02) | DRG 948 ==
LOC: ED 16:08 → ED-I 18:20 → ED 21:10
DX: R18.8 Other ascites (principal); K74.60 Unspecified cirrhosis of liver; E87.2 Acidosis; I42.8 Other cardiomyopathies; I11.0 Hypertensive heart disease with heart failure; I50.9 Heart failure, unspecified; K21.9 Gastro-esophageal reflux disease without esophagitis; Z86.73 Personal history of transient ischemic attack (TIA), and cerebral infarction without residual deficits; Z95.810 Presence of automatic (implantable) cardiac defibrillator; Z20.822 Contact with and (suspected) exposure to COVID-19

== ENCOUNTER 2021-12-13 14:32 | Inpatient (IN) | payer OTHER ==
[~2021-12-13] VITALS: Ht 175.3 cm; Wt 75.0 kg
[2021-12-13 15:40] LABS: GFR FOR AFR.AMER. > 60 ML/MIN (>=60 (CALC)); GFR OTHER RACES 50 ML/MIN (>=60 (CALC)); HEMATOCRIT 39.4 % (37.0-47.0); IMMATURE GRANULOCYTES 0.2 % (0.0-5.0); MEAN CELL VOLUME 96.8 fL CALC (80.0-100.0); MEAN CORPUSCULAR HGB 31.9 pG CALC (26.0-32.0); NEUT# 4.18 thou/uL (2.00-7.15); RED BLOOD COUNT 4.07 mill/uL (4.20-5.60); RED CELL DISTRI WIDTH 17.1 % (11.5-15.5)
[2021-12-13 15:58] LABS: ALBUMIN 3.8 g/dL (3.2-5.0); ALKALINE PHOSPHATASE 127 u/l (38-126); ANION GAP 14 (6-22 (CALC)); BILIRUBIN, TOTAL 2.5 mg/dL (0.0-1.4); BUN 29 mg/dL (8-23); BUN/CREATININE RATIO 27 (12-20 (CALC)); CARBON DIOXIDE 28 mmol/l (22-30); CHLORIDE 98 mmol/l (95-108); CREATININE 1.1 mg/dL (0.5-1.0); GFR FOR AFR.AMER. > 60 ML/MIN (>=60 (CALC)); GFR OTHER RACES 50 ML/MIN (>=60 (CALC)); SGOT/AST 33 u/l (9-36); SODIUM 137 mmol/l (137-146)
[2021-12-13 16:00] LABS: POTASSIUM 3.3 mmol/l (3.5-5.1)
[2021-12-13 18:41] LABS: URINE BILIRUBIN - DIPSTICK MODERATE (NEGATIVE); URINE BLOOD DIPSTICK SMALL (NEGATIVE); URINE GLUCOSE - DIPSTICK NEGATIVE (NEGATIVE); URINE KETONE NEGATIVE (NEGATIVE); URINE LEUK ESTERASE NEGATIVE (NEGATIVE); URINE NITRITE - DIPSTICK NEGATIVE (Negative); URINE PH 5.5 (4.5-8.0); URINE PROTEIN - DIPSTICK 30 mg/dL (NEG-TRACE)
[2021-12-13 18:42] LABS: URINE COLOR DK. YELLOW
[2021-12-13 18:47] LABS: URINE SQUAMOUS EPITHELIAL CELL MANY EPI/hpf (0-FEW)
[2021-12-13 19:38] VITALS: BP 141/115
[2021-12-14] VITALS (10 sets, daily range): BP systolic 82–129; BP diastolic 52–71
[2021-12-14 08:15] LABS: HEMATOCRIT 40.4 % (37.0-47.0); HEMOGLOBIN 12.9 g/dl (12.0-16.0); MEAN CORPUSCULAR HGB 31.6 pG CALC (26.0-32.0); MEAN CORPUSCULAR HGB CONC 31.9 g/dL CAL (32.0-36.0); RED BLOOD COUNT 4.08 mill/uL (4.20-5.60); RED CELL DISTRI WIDTH 17.4 % (11.5-15.5)
[2021-12-14 08:30] LABS: INTERNATIONAL NORMALIZED RATIO 1.5 RATIO (0.7-1.3); PROTHROMBIN TIME 15.6 SECONDS (9.0-12.5)
[2021-12-14 11:24] LABS: CREATININE 1.3 mg/dL (0.5-1.0); MAGNESIUM 1.8 mg/dL (1.6-2.3)
[2021-12-14 11:28] LABS: POTASSIUM 4.1 mmol/l (3.5-5.1)
[2021-12-15] VITALS (9 sets, daily range): BP systolic 91–121; BP diastolic 56–90
[2021-12-15 06:33] LABS: HEMATOCRIT 38.3 % (37.0-47.0); HEMOGLOBIN 12.1 g/dl (12.0-16.0); MEAN CELL VOLUME 99.5 fL CALC (80.0-100.0); MEAN CORPUSCULAR HGB 31.4 pG CALC (26.0-32.0); MEAN CORPUSCULAR HGB CONC 31.6 g/dL CAL (32.0-36.0); RED BLOOD COUNT 3.85 mill/uL (4.20-5.60); RED CELL DISTRI WIDTH 17.3 % (11.5-15.5)
[2021-12-15 07:12] LABS: CREATININE 1.7 mg/dL (0.5-1.0); MAGNESIUM 1.6 mg/dL (1.6-2.3); POTASSIUM 4.5 mmol/l (3.5-5.1)
[2021-12-16] VITALS (9 sets, daily range): BP systolic 81–103; BP diastolic 44–64
[2021-12-16 05:05] LABS: HEMATOCRIT 36.9 % (37.0-47.0); MEAN CELL VOLUME 97.1 fL CALC (80.0-100.0); MEAN CORPUSCULAR HGB 31.6 pG CALC (26.0-32.0); MEAN CORPUSCULAR HGB CONC 32.5 g/dL CAL (32.0-36.0); RED BLOOD COUNT 3.8 mill/uL (4.20-5.60); RED CELL DISTRI WIDTH 17.4 % (11.5-15.5)
[2021-12-16 05:22] LABS: CREATININE 1.6 mg/dL (0.5-1.0); MAGNESIUM 1.5 mg/dL (1.6-2.3); POTASSIUM 3.9 mmol/l (3.5-5.1)
[2021-12-17] VITALS (9 sets, daily range): BP systolic 93–121; BP diastolic 48–92
[2021-12-17 05:01] LABS: HEMATOCRIT 39.3 % (37.0-47.0); HEMOGLOBIN 12.5 g/dl (12.0-16.0); MEAN CORPUSCULAR HGB 31.2 pG CALC (26.0-32.0); MEAN CORPUSCULAR HGB CONC 31.8 g/dL CAL (32.0-36.0); RED BLOOD COUNT 4.01 mill/uL (4.20-5.60); RED CELL DISTRI WIDTH 17.1 % (11.5-15.5)
[2021-12-17 05:19] LABS: CREATININE 1.4 mg/dL (0.5-1.0); MAGNESIUM 1.4 mg/dL (1.6-2.3); POTASSIUM 3.3 mmol/l (3.5-5.1)
[2021-12-18] VITALS (7 sets, daily range): BP systolic 97–109; BP diastolic 45–67
[2021-12-18 05:21] LABS: HEMATOCRIT 37.7 % (37.0-47.0); HEMOGLOBIN 12.1 g/dl (12.0-16.0); MEAN CELL VOLUME 98.4 fL CALC (80.0-100.0); MEAN CORPUSCULAR HGB 31.6 pG CALC (26.0-32.0); MEAN CORPUSCULAR HGB CONC 32.1 g/dL CAL (32.0-36.0); RED BLOOD COUNT 3.83 mill/uL (4.20-5.60); RED CELL DISTRI WIDTH 17.7 % (11.5-15.5)
[2021-12-18 05:33] LABS: CREATININE 1.3 mg/dL (0.5-1.0); POTASSIUM 3.9 mmol/l (3.5-5.1)
[2021-12-18 05:34] LABS: MAGNESIUM 2.1 mg/dL (1.6-2.3)
[2021-12-19 05:39] VITALS: BP 102/54
[2021-12-19 06:39] VITALS: BP 90/64
[2021-12-19 08:58] LABS: HEMATOCRIT 39.4 % (37.0-47.0); HEMOGLOBIN 12.6 g/dl (12.0-16.0); IMMATURE GRANULOCYTES 0.2 % (0.0-5.0); MEAN CELL VOLUME 98.3 fL CALC (80.0-100.0); MEAN CORPUSCULAR HGB 31.4 pG CALC (26.0-32.0); NEUT# 3.9 thou/uL (2.00-7.15); RED BLOOD COUNT 4.01 mill/uL (4.20-5.60); RED CELL DISTRI WIDTH 17.5 % (11.5-15.5)
[2021-12-19 09:31] LABS: CREATININE 1.4 mg/dL (0.5-1.0); MAGNESIUM 1.9 mg/dL (1.6-2.3); POTASSIUM 3.9 mmol/l (3.5-5.1)
[2021-12-19 10:15] VITALS: BP 95/62
[2021-12-19 14:55] VITALS: BP 97/73
[2021-12-19 19:05] VITALS: BP 92/64
[2021-12-20] VITALS (9 sets, daily range): BP systolic 91–116; BP diastolic 47–77
[2021-12-20 08:18] LABS: CREATININE 1.6 mg/dL (0.5-1.0); POTASSIUM 3.6 mmol/l (3.5-5.1)
[2021-12-21] VITALS (11 sets, daily range): BP systolic 92–117; BP diastolic 31–80
[2021-12-22] VITALS (9 sets, daily range): BP systolic 93–124; BP diastolic 50–82
[2021-12-22 05:57] LABS: HEMATOCRIT 40.6 % (37.0-47.0); MEAN CELL VOLUME 98.1 fL CALC (80.0-100.0); MEAN CORPUSCULAR HGB 31.4 pG CALC (26.0-32.0); RED BLOOD COUNT 4.14 mill/uL (4.20-5.60); RED CELL DISTRI WIDTH 17.8 % (11.5-15.5)
[2021-12-22 06:05] LABS: CREATININE 1.8 mg/dL (0.5-1.0); MAGNESIUM 2.2 mg/dL (1.6-2.3)
[2021-12-22] MEDS ORDERED: LORTAB5 PO (13:06)
== END 2021-12-22 16:22 | disposition home or self-care (01) | DRG 432 ==
LOC: ED 14:32 → ED-I 18:03 → ED 18:22 → MS2 18:22
PROVIDERS: Family Medicine; Internal Medicine; Nurse Practitioner; Nurse Practitioner Adult Health; ADMIT Hospitalist; ATTEND Hospitalist
PROC: 0W9G3ZZ Drainage of Peritoneal Cavity, Percutaneous Approach (ICD-10-PCS; principal; 2021-12-18)
DX: K74.69 Other cirrhosis of liver (principal); I50.23 Acute on chronic systolic (congestive) heart failure; R18.8 Other ascites; N17.9 Acute kidney failure, unspecified; I42.8 Other cardiomyopathies; I11.0 Hypertensive heart disease with heart failure; I48.91 Unspecified atrial fibrillation; I95.9 Hypotension, unspecified; E87.5 Hyperkalemia; E83.42 Hypomagnesemia; K21.9 Gastro-esophageal reflux disease without esophagitis; I87.8 Other specified disorders of veins; F32.A Depression, unspecified; Z86.73 Personal history of transient ischemic attack (TIA), and cerebral infarction without residual deficits; Z91.19 Patient's noncompliance with other medical treatment and regimen; Z95.810 Presence of automatic (implantable) cardiac defibrillator; Z79.01 Long term (current) use of anticoagulants; Z66 Do not resuscitate; Z20.822 Contact with and (suspected) exposure to COVID-19
CPT/HCPCS: G0378; J3475; Q9967

== ENCOUNTER 2021-12-23 23:55 | Emergency (ER) | payer OTHER ==
[~2021-12-23] VITALS: Ht 175.3 cm; Wt 75.0 kg
[~2021-12-23 23:55] MED LIST changes: +LORTAB5 PO
[2021-12-24] VITALS (9 sets, daily range): BP systolic 46–127; BP diastolic 21–80
[2021-12-24 01:35] LABS: HEMATOCRIT 41.3 % (37.0-47.0); HEMOGLOBIN 13.4 g/dl (12.0-16.0); IMMATURE GRANULOCYTES 0.4 % (0.0-5.0); MEAN CELL VOLUME 98.1 fL CALC (80.0-100.0); MEAN CORPUSCULAR HGB 31.8 pG CALC (26.0-32.0); MEAN CORPUSCULAR HGB CONC 32.4 g/dL CAL (32.0-36.0); NEUT# 4.78 thou/uL (2.00-7.15); RED BLOOD COUNT 4.21 mill/uL (4.20-5.60)
[2021-12-24 01:44] LABS: ALBUMIN 4.3 g/dL (3.2-5.0); CREATININE 2.2 mg/dL (0.5-1.0); TOTAL PROTEIN 8.9 g/dL (6.3-8.2)
[2021-12-24 01:50] LABS: BILIRUBIN, TOTAL 4.6 mg/dL (0.0-1.4)
[2021-12-24] MEDS ORDERED: LORTAB5 PO (02:27)
[2021-12-24] MEDS ORDERED: PROMETHAZINE HY25 M1 PO (02:27)
== END 2021-12-24 03:30 | disposition home or self-care (01) | DRG 392 ==
LOC: ED 23:55
PROVIDERS: Family Medicine
DX: R10.13 Epigastric pain (principal); I11.0 Hypertensive heart disease with heart failure; I50.9 Heart failure, unspecified; K21.9 Gastro-esophageal reflux disease without esophagitis; Z95.810 Presence of automatic (implantable) cardiac defibrillator; Z86.73 Personal history of transient ischemic attack (TIA), and cerebral infarction without residual deficits

== ENCOUNTER 2022-01-17 21:22 | Observation (INO) | payer OTHER ==
[2022-01-17] VITALS (12 sets, daily range): BP systolic 76–123; BP diastolic 45–99
[~2022-01-17] VITALS: Ht 175.3 cm; Wt 73.9 kg
[~2022-01-17 21:22] MED LIST changes: +PROMETHAZINE HY25 M1 PO
--- NOTE | 2022-01-17 21:33 | NUR ---
PT TO ROOM VIA WHEEL CHAIR
--- NOTE | 2022-01-17 22:27 | NUR ---
PT IN ROOM ON MONITOR WITH FAMILY AT BEDSIDE, AWAITING RESULTS, MEDICATED FOR PAIN, WILL CONT TO MONITOR.
[2022-01-17 22:38] LABS: HEMATOCRIT 39.4 % (37.0-47.0); IMMATURE GRANULOCYTES 0.3 % (0.0-5.0); MEAN CELL VOLUME 96.6 fL CALC (80.0-100.0); MEAN CORPUSCULAR HGB 31.9 pG CALC (26.0-32.0); NEUT# 4.44 thou/uL (2.00-7.15); RED BLOOD COUNT 4.08 mill/uL (4.20-5.60); RED CELL DISTRI WIDTH 18.9 % (11.5-15.5)
[2022-01-17 23:12] LABS: ALBUMIN 3.9 g/dL (3.2-5.0); BILIRUBIN, TOTAL 4.3 mg/dL (0.0-1.4); CREATININE 3.1 mg/dL (0.5-1.0); POTASSIUM 3.4 mmol/l (3.5-5.1); TOTAL PROTEIN 8.2 g/dL (6.3-8.2)
--- NOTE | 2022-01-17 23:40 | NUR ---
PT TO BE ADMITTED
--- NOTE | 2022-01-17 23:49 | NUR ---
PT MEDICATED FOR PAIN AGAIN, WILL MONITOR FOR EFFECTIVENESS.
[2022-01-18] VITALS (10 sets, daily range): BP systolic 83–109; BP diastolic 54–76
--- NOTE | 2022-01-18 00:15 | NUR ---
REPORT CALLED TO LOULOU WALTERS.
--- NOTE | 2022-01-18 00:38 | NUR ---
Admission Note Report Given to: LOULOU Transported by: Wheelchair X Stretcher Transported with: X Nurse Transporter X Patent IV X O2 Theater Set Production Designer Location: ICU X MS2 PT ADMITTED TO [facility], TRANSPORTED VIA STRETCHER BY ED STAFF.
--- NOTE | 2022-01-18 02:30 | NUR ---
PATIENT ADMITTED FROM ER VIA STETCHER WITH ER STAFF AND DAUGHTER IN ATTENDANCE. ASSISTED PATIENT FROM STRETCHER TO THE BED. PATIENT ADMITTED FOR PAIN CONTROL. PATIENT IS CURRENTLY UNDER CARE OF HOME HOSPICE AND DOES HAVE DNR IN PLACE. O2 VIA NASAL CANNULA IN PLACE. SALINE LOCK INTACT TO RAC. SITE IS HEALTHY WITH GOOD BLOOD RETURN. PATIENT WITH BLE SWELLING-HEALING BLISTER TO RIGHT LOWER EXTREMITY. CLEANSED WITH NS AND AQUACEL FOAM DRESSING APPLIED. PATIENT IS SOB AT REST WITH O2 SAT OF 94-95%. DAUGHTER STATES THAT PATIENT HAD BM YESTERDAY. URINE OUTPUT HAS BEEN LOW. PUREWICK APPLIED FOR PATIENT COMFORT. BLE ELEVATED ON PILLOWS. PAIN LEVEL IS 8/10 AND MEDICATED WITH MORPHINE 4MG IVP FOR PAIN. C/O ITCHING AND MEDICATED WITH BENEDRYL 25MG PO. PATIENT AND DAUGHTER ORIENTED TO ROOM AND SURROUNDINGS. INSTRUCTED ON USE OF NURSE CALL LIGHT SYSTEM AND TV REMOTE. SAFETY PRECAUTIONS REINFORCED. DAUGHTER STAYING AT BEDSIDE. ,WILL CONT TO MONITOR.
--- NOTE | 2022-01-18 05:30 | NUR ---
PATIENT RESTING IN BED WITH HOB ELEVATED AND O2 VIA NASAL CANNULA IN PLACE AT 2LPM. STILL WITH LABORED BREATHING AT REST. EYES ARE CLOSED. PUREWICK REMAINS IN PLACE-NO URINE OUTPUT YET. BLE REMAIN ELEVATED ON PILLOWS. DAUGHTER REMAINS AT BEDSIDE. CALL LIGHT IN REACH. WILL CONT TO MONITOR.
[2022-01-18 06:13] LABS: HEMATOCRIT 35.7 % (37.0-47.0); HEMOGLOBIN 12.1 g/dl (12.0-16.0); IMMATURE GRANULOCYTES 0.2 % (0.0-5.0); MEAN CORPUSCULAR HGB 32.5 pG CALC (26.0-32.0); MEAN CORPUSCULAR HGB CONC 33.9 g/dL CAL (32.0-36.0); NEUT# 3.27 thou/uL (2.00-7.15); RED BLOOD COUNT 3.72 mill/uL (4.20-5.60); RED CELL DISTRI WIDTH 18.8 % (11.5-15.5)
[2022-01-18 06:30] LABS: ALBUMIN 3.6 g/dL (3.2-5.0); MAGNESIUM 1.9 mg/dL (1.6-2.3)
--- NOTE | 2022-01-18 06:50 | NUR ---
RECEIVED REPORT FROM SELENA OSBORN.
--- NOTE | 2022-01-18 08:15 | NUR ---
PT SITTING ON BED HIGH FOWLERS HAVING BREAKFAST; A&O X3. DAUGHTER AT BEDSIDE. EVEN AND INLABORED RESPIRATIONS: DIMINISHED LUNG SOUNDS UPON AUSCULTATION. O2 @ 2L VIA NASAL CANNULA IN PLACE. FOUND IV DISLOGDED; REMOVED #20 RIGHT AC, CATHETER INTACT. ACTIVE BOWEL SOUNDS X4 QUADRANTS. PUREWICK IN PLACE WITH NO CONTENTS: DAUGHTER STATES PT HAVE NOT HAVE OUTPUT YET. DRESSING ON RIGHT LOWER EXTREMITY: CDI. SAFETY PRECAUTIONS IN PLACE WITH CALL LIGHT IN REACH.
--- NOTE | 2022-01-18 08:40 | NUR ---
NEW IV PLACED BY SELENA KNIGHT. #22G ON LEFT WRIST, WITH GOOD BLOOD RETURN, PT TOLERATED WELL. PT C/O ABDOMINAL PAIN LEVEL 7/10; ADMINISTERED PAIN MEDICATION PER EMAR. SAFETY PRECAUTIONS IN PLACE WITH CALL LIGHT IN REACH.
--- NOTE | 2022-01-18 12:10 | NUR ---
PT ASSISTED TO RECLINER BY AIDE. O2 @ 2L VIA NASAL CANNULA IN PLACE. PUREWICK IN PLACE STILL WITH NO OUTPUT. NO DISTRESS NOTED. PT C/O ITCHING ALL OVER HER BODY; ADMINISTERED BENADRYL PER EMAR. SAFETY PRECAUTIONS IN PLACE WITH CALL LIGHT IN REACH.
--- NOTE | 2022-01-18 12:51 | NUR ---
PT STATES: "I'M GETTING ANXIOUS, I TAKE ATIVAN AT HOME, CAN I HAVE IT?" ADMINISTERED ATIVAN PER EMAR. SAFETY PRECAUTIONS IN PLACE WITH CALL LIGHT IN REACH.
--- NOTE | 2022-01-18 16:39 | NUR ---
PT RESTING IN BED WITH EYES CLOSED. NO DISTRESS OR PAIN NOTED. PUREWICK IN PLACE WITH NO CONTENTS. IV HEALTHY AND PATENT. SAFETY PRECAUTIONS IN PLACE WITH CALL LIGHT IN REACH.
[2022-01-19 04:00] VITALS: BP 115/64
[2022-01-19 04:11] VITALS: BP 115/64
[2022-01-19 05:59] LABS: URINE BILIRUBIN - DIPSTICK NEGATIVE (NEGATIVE); URINE BLOOD DIPSTICK NEGATIVE (NEGATIVE); URINE COLOR YELLOW; URINE GLUCOSE - DIPSTICK NEGATIVE (NEGATIVE); URINE KETONE NEGATIVE (NEGATIVE); URINE LEUK ESTERASE NEGATIVE (NEGATIVE); URINE PROTEIN - DIPSTICK NEGATIVE (NEG-TRACE); URINE UROBILINOGEN - DIPSTICK 0.2 E.U./dL (0.2)
[2022-01-19 06:04] VITALS: BP 105/47
[2022-01-19 06:20] LABS: URINE NITRITE - DIPSTICK NEGATIVE (Negative)
[2022-01-19 08:00] VITALS: BP 105/47
--- NOTE | 2022-01-19 08:45 | NUR ---
PT RESTING IN LOW FOWLERS POSITION. A/OX3 ASSESSMENT AND VS COMPLETED. HEART RHYHTM NORMAL RESPIRATIONS EVEN AND UNLABORED. BOWEL SOUNDS ACTIVE. PT WOUND TO RLE AQUACEL CDI. IV SITE NOTED. FLUSHED. PT DENIES ADDITIONAL NEEDS ALL SAFETY PRECAUTIONS IN PLACE.
--- NOTE | 2022-01-19 09:30 | NUR ---
HOSPICE BEDSIDE EVALUATION
--- NOTE | 2022-01-19 10:51 | NUR ---
Discharge instructions given. Patient verbalizes understanding of same. Discharged in stable condition via St[facility] to *Other with staff. All belongings sent with pt. pt left to hospice [facility]. iv still in pt for hospice.
== END 2022-01-19 11:00 | disposition hospice, inpatient (51) | DRG 392 ==
LOC: ED 21:22 → ED-I 23:19 → ED 23:58 → MS2 23:59
PROVIDERS: Family Medicine; Nurse Practitioner; ADMIT Internal Medicine; ATTEND Internal Medicine
DX: K59.09 Other constipation (principal); I13.0 Hypertensive heart and chronic kidney disease with heart failure and stage 1 through stage 4 chronic kidney disease, or unspecified chronic kidney disease; R64 Cachexia; I42.8 Other cardiomyopathies; R18.8 Other ascites; F06.4 Anxiety disorder due to known physiological condition; K74.60 Unspecified cirrhosis of liver; N18.9 Chronic kidney disease, unspecified; I50.9 Heart failure, unspecified; K21.9 Gastro-esophageal reflux disease without esophagitis; F32.A Depression, unspecified; Z86.73 Personal history of transient ischemic attack (TIA), and cerebral infarction without residual deficits; Z95.810 Presence of automatic (implantable) cardiac defibrillator; Z51.5 Encounter for palliative care; Z68.24 Body mass index [BMI] 24.0-24.9, adult; Z20.822 Contact with and (suspected) exposure to COVID-19
CPT/HCPCS: S0164

== ENCOUNTER 2022-01-29 23:45 | Emergency (ER) | payer OTHER ==
[~2022-01-29] VITALS: Ht 175.3 cm; Wt 68.4 kg
[~2022-01-29 23:45] MED LIST changes: +BUMETANIDE2 MG PO
[2022-01-30] VITALS (13 sets, daily range): BP systolic 71–105; BP diastolic 43–78
[2022-01-30 01:13] LABS: IMMATURE GRANULOCYTES 0.3 % (0.0-5.0); MEAN CELL VOLUME 97.8 fL CALC (80.0-100.0); MEAN CORPUSCULAR HGB 31.9 pG CALC (26.0-32.0); MEAN CORPUSCULAR HGB CONC 32.6 g/dL CAL (32.0-36.0); NEUT# 4.55 thou/uL (2.00-7.15); RED BLOOD COUNT 4.45 mill/uL (4.20-5.60)
[2022-01-30 01:14] LABS: HEMATOCRIT 43.5 % (37.0-47.0); HEMOGLOBIN 14.2 g/dl (12.0-16.0)
[2022-01-30 01:34] LABS: ALBUMIN 3.7 g/dL (3.2-5.0); BILIRUBIN, TOTAL 3.7 mg/dL (0.0-1.4); POTASSIUM 2.8 mmol/l (3.5-5.1); TOTAL PROTEIN 7.8 g/dL (6.3-8.2)
[2022-01-30 01:36] LABS: CREATININE 1.3 mg/dL (0.5-1.0)
[2022-01-30 01:46] LABS: MYOGLOBIN 62 ng/mL (0 - 62)
[2022-01-30 01:56] LABS: AMYLASE 138 u/l (30-110); LIPASE 252 u/l (23-300)
== END 2022-01-30 05:18 | disposition home or self-care (01) | DRG 433 ==
LOC: ED 23:45
PROVIDERS: Emergency Medicine
DX: K74.60 Unspecified cirrhosis of liver (principal); R18.8 Other ascites; E87.6 Hypokalemia; F06.4 Anxiety disorder due to known physiological condition; I13.0 Hypertensive heart and chronic kidney disease with heart failure and stage 1 through stage 4 chronic kidney disease, or unspecified chronic kidney disease; R64 Cachexia; N18.9 Chronic kidney disease, unspecified; I50.9 Heart failure, unspecified; Z86.73 Personal history of transient ischemic attack (TIA), and cerebral infarction without residual deficits; K21.9 Gastro-esophageal reflux disease without esophagitis; Z95.810 Presence of automatic (implantable) cardiac defibrillator; Z20.822 Contact with and (suspected) exposure to COVID-19

== ENCOUNTER 2022-02-03 21:04 | Emergency (ER) | payer OTHER ==
[2022-02-03] VITALS (12 sets, daily range): BP systolic 46–108; BP diastolic 18–74
[~2022-02-03] VITALS: Ht 175.3 cm; Wt 68.4 kg
[2022-02-03 22:02] LABS: HEMATOCRIT 44.1 % (37.0-47.0); HEMOGLOBIN 14.4 g/dl (12.0-16.0); IMMATURE GRANULOCYTES 0.2 % (0.0-5.0); MEAN CELL VOLUME 97.1 fL CALC (80.0-100.0); MEAN CORPUSCULAR HGB 31.7 pG CALC (26.0-32.0); MEAN CORPUSCULAR HGB CONC 32.7 g/dL CAL (32.0-36.0); NEUT# 4.85 thou/uL (2.00-7.15); RED BLOOD COUNT 4.54 mill/uL (4.20-5.60); RED CELL DISTRI WIDTH 19.2 % (11.5-15.5)
[2022-02-03 22:10] LABS: ALBUMIN 3.6 g/dL (3.2-5.0); BILIRUBIN, TOTAL 3.5 mg/dL (0.0-1.4); CREATININE 1.2 mg/dL (0.5-1.0); POTASSIUM 3.5 mmol/l (3.5-5.1); TOTAL PROTEIN 7.8 g/dL (6.3-8.2)
[2022-02-04] VITALS: BP 91/47
[2022-02-04] MEDS ORDERED: FENTANYL25 MCG/HR TD (00:17)
[2022-02-04 00:30] VITALS: BP 95/54
[2022-02-04 00:52] VITALS: BP 97/59
[2022-02-04 01:25] VITALS: BP 97/59
[2022-02-04] MEDS ORDERED: SENNA-TABS8.6 MG PO ×2 (16:05→16:07)
[2022-02-04] MEDS ORDERED: MIRALAX17 GM PO (16:06)
[2022-02-05] MEDS ORDERED: TOPROL XL25 M1 PO (10:51)
== END 2022-02-04 01:35 | disposition home or self-care (01) | DRG 442 ==
LOC: ED 21:04
PROVIDERS: Family Medicine
DX: K76.7 Hepatorenal syndrome (principal); R18.8 Other ascites; I11.0 Hypertensive heart disease with heart failure; I50.9 Heart failure, unspecified; K21.9 Gastro-esophageal reflux disease without esophagitis; Z95.810 Presence of automatic (implantable) cardiac defibrillator; Z86.73 Personal history of transient ischemic attack (TIA), and cerebral infarction without residual deficits

== ENCOUNTER 2022-02-04 13:13 | Inpatient (IN) | payer OTHER ==
[~2022-02-04] VITALS: Ht 175.3 cm; Wt 67.0 kg
[2022-02-04] VITALS (18 sets, daily range): BP systolic 78–116; BP diastolic 19–89
[~2022-02-04 13:13] MED LIST changes: +FENTANYL25 MCG/HR TD
[2022-02-04 13:50] LABS: HEMATOCRIT 43.7 % (37.0-47.0); HEMOGLOBIN 14.8 g/dl (12.0-16.0); IMMATURE GRANULOCYTES 0.2 % (0.0-5.0); MEAN CELL VOLUME 93.6 fL CALC (80.0-100.0); MEAN CORPUSCULAR HGB 31.7 pG CALC (26.0-32.0); MEAN CORPUSCULAR HGB CONC 33.9 g/dL CAL (32.0-36.0); NEUT# 3.6 thou/uL (2.00-7.15); RED BLOOD COUNT 4.67 mill/uL (4.20-5.60)
[2022-02-04 13:56] LABS: ALBUMIN 3.8 g/dL (3.2-5.0); ALKALINE PHOSPHATASE 169 u/l (38-126); ANION GAP 11 (6-22 (CALC)); BILIRUBIN, TOTAL 3.3 mg/dL (0.0-1.4); BUN 26 mg/dL (8-23); BUN/CREATININE RATIO 23 (12-20 (CALC)); CARBON DIOXIDE 35 mmol/l (22-30); CHLORIDE 94 mmol/l (95-108); CREATININE 1.1 mg/dL (0.5-1.0); GFR FOR AFR.AMER. > 60 ML/MIN (>=60 (CALC)); GFR OTHER RACES 50 ML/MIN (>=60 (CALC)); LIPASE 158 u/l (23-300); POTASSIUM 3.5 mmol/l (3.5-5.1); SGOT/AST 63 u/l (9-36); SODIUM 136 mmol/l (137-146); TOTAL PROTEIN 8.3 g/dL (6.3-8.2)
[2022-02-04] MEDS ORDERED: SENNA-TABS8.6 MG PO ×2 (16:05→16:07)
[2022-02-04] MEDS ORDERED: MIRALAX17 GM PO (16:06)
[2022-02-04 19:09] LABS: URINE BILIRUBIN - DIPSTICK NEGATIVE (NEGATIVE); URINE BLOOD DIPSTICK TRACE-LYSED (NEGATIVE); URINE CLARITY CLEAR; URINE COLOR YELLOW; URINE GLUCOSE - DIPSTICK NEGATIVE (NEGATIVE); URINE KETONE NEGATIVE (NEGATIVE); URINE LEUK ESTERASE NEGATIVE (Negative); URINE NITRITE - DIPSTICK NEGATIVE (Negative); URINE PROTEIN - DIPSTICK NEGATIVE (NEG-TRACE); URINE UROBILINOGEN - DIPSTICK 0.2 E.U./dL (0.2)
[2022-02-05] VITALS (9 sets, daily range): BP systolic 83–129; BP diastolic 33–110
[2022-02-05 05:24] LABS: HEMATOCRIT 40.5 % (37.0-47.0); HEMOGLOBIN 13.4 g/dl (12.0-16.0); IMMATURE GRANULOCYTES 0.2 % (0.0-5.0); MEAN CELL VOLUME 96.9 fL CALC (80.0-100.0); MEAN CORPUSCULAR HGB 32.1 pG CALC (26.0-32.0); MEAN CORPUSCULAR HGB CONC 33.1 g/dL CAL (32.0-36.0); NEUT# 3.03 thou/uL (2.00-7.15); RED BLOOD COUNT 4.18 mill/uL (4.20-5.60); RED CELL DISTRI WIDTH 19.4 % (11.5-15.5)
[2022-02-05 05:44] LABS: ALBUMIN 3.4 g/dL (3.2-5.0); ALKALINE PHOSPHATASE 161 u/l (38-126); ANION GAP 10 (6-22 (CALC)); BILIRUBIN, TOTAL 2.7 mg/dL (0.0-1.4); BUN 27 mg/dL (8-23); BUN/CREATININE RATIO 25 (12-20 (CALC)); CARBON DIOXIDE 38 mmol/l (22-30); CHLORIDE 93 mmol/l (95-108); CREATININE 1.1 mg/dL (0.5-1.0); GFR FOR AFR.AMER. > 60 ML/MIN (>=60 (CALC)); GFR OTHER RACES 50 ML/MIN (>=60 (CALC)); SGOT/AST 44 u/l (9-36); SODIUM 138 mmol/l (137-146); TOTAL PROTEIN 7.2 g/dL (6.3-8.2)
[2022-02-05 05:55] LABS: POTASSIUM 2.7 mmol/l (3.5-5.1)
[2022-02-05 08:32] LABS: INTERNATIONAL NORMALIZED RATIO 1.4 RATIO (0.7-1.3); PROTHROMBIN TIME 13.8 SECONDS (9.0-12.5)
[2022-02-05] MEDS ORDERED: TOPROL XL25 M1 PO (10:51)
[2022-02-06 00:28] VITALS: BP 85/55
[2022-02-06 04:46] VITALS: BP 87/56
[2022-02-06 05:13] LABS: ANION GAP 11 (6-22 (CALC)); BUN 27 mg/dL (8-23); BUN/CREATININE RATIO 24 (12-20 (CALC)); CARBON DIOXIDE 36 mmol/l (22-30); CHLORIDE 93 mmol/l (95-108); CREATININE 1.1 mg/dL (0.5-1.0); GFR FOR AFR.AMER. > 60 ML/MIN (>=60 (CALC)); GFR OTHER RACES 50 ML/MIN (>=60 (CALC)); MAGNESIUM 1.8 mg/dL (1.6-2.3); SODIUM 137 mmol/l (137-146)
[2022-02-06 05:16] LABS: POTASSIUM 3.4 mmol/l (3.5-5.1)
[2022-02-06 06:25] VITALS: BP 82/51
[2022-02-06] MEDS ORDERED: MIDODRINE5 MG PO (09:34)
[2022-02-06] MEDS ORDERED: ZITHROMAX250 MG PO (09:39)
[2022-02-06 11:01] VITALS: BP 92/49
== END 2022-02-06 12:45 | disposition hospice, home (50) | DRG 291 ==
LOC: ED 13:13 → ED-I 14:12 → ED 15:23 → MS2 15:24
PROVIDERS: Family Medicine; Internal Medicine; Nurse Practitioner Adult Health; ADMIT Internal Medicine; ATTEND Internal Medicine
PROC: 0W9G3ZZ Drainage of Peritoneal Cavity, Percutaneous Approach (ICD-10-PCS; principal; 2022-02-05)
DX: I11.0 Hypertensive heart disease with heart failure (principal); I50.23 Acute on chronic systolic (congestive) heart failure; R18.8 Other ascites; I25.5 Ischemic cardiomyopathy; E87.6 Hypokalemia; E83.42 Hypomagnesemia; K74.60 Unspecified cirrhosis of liver; F06.4 Anxiety disorder due to known physiological condition; K21.9 Gastro-esophageal reflux disease without esophagitis; F32.A Depression, unspecified; K59.00 Constipation, unspecified; Z86.73 Personal history of transient ischemic attack (TIA), and cerebral infarction without residual deficits; Z79.01 Long term (current) use of anticoagulants; Z95.810 Presence of automatic (implantable) cardiac defibrillator; Z20.822 Contact with and (suspected) exposure to COVID-19; Z91.19 Patient's noncompliance with other medical treatment and regimen
CPT/HCPCS: J3475

== ENCOUNTER 2022-02-08 10:15 | Inpatient (IN) | payer OTHER ==
[~2022-02-08] VITALS: Ht 175.3 cm; Wt 58.7 kg
[2022-02-08] VITALS (83 sets, daily range): BP systolic 28–132; BP diastolic 10–100
[~2022-02-08 10:15] MED LIST changes: +MIDODRINE5 MG PO; +SENNA-TABS8.6 MG PO; +TOPROL XL25 M1 PO; +ZITHROMAX250 MG PO
[2022-02-08 10:38] LABS: HEMATOCRIT 44.1 % (37.0-47.0); HEMOGLOBIN 14.4 g/dl (12.0-16.0); MEAN CELL VOLUME 97.4 fL CALC (80.0-100.0); MEAN CORPUSCULAR HGB 31.8 pG CALC (26.0-32.0); MEAN CORPUSCULAR HGB CONC 32.7 g/dL CAL (32.0-36.0); NEUT# 3.48 thou/uL (2.00-7.15); RED BLOOD COUNT 4.53 mill/uL (4.20-5.60); RED CELL DISTRI WIDTH 19.4 % (11.5-15.5)
[2022-02-08 12:07] LABS: ALKALINE PHOSPHATASE 207 u/l (38-126); ANION GAP 17 (6-22 (CALC)); BILIRUBIN, TOTAL 3.2 mg/dL (0.0-1.4); BUN 28 mg/dL (8-23); BUN/CREATININE RATIO 23 (12-20 (CALC)); CARBON DIOXIDE 30 mmol/l (22-30); CHLORIDE 93 mmol/l (95-108); CREATININE 1.2 mg/dL (0.5-1.0); GFR FOR AFR.AMER. 55 ML/MIN (>=60 (CALC)); GFR OTHER RACES 45 ML/MIN (>=60 (CALC)); POTASSIUM 3.6 mmol/l (3.5-5.1); SGOT/AST 50 u/l (9-36); SODIUM 136 mmol/l (137-146); TOTAL PROTEIN 8.6 g/dL (6.3-8.2)
[2022-02-08 14:15] LABS: URINE BILIRUBIN - DIPSTICK NEGATIVE (NEGATIVE); URINE BLOOD DIPSTICK TRACE-LYSED (NEGATIVE); URINE COLOR YELLOW; URINE GLUCOSE - DIPSTICK NEGATIVE (NEGATIVE); URINE KETONE NEGATIVE (NEGATIVE); URINE LEUK ESTERASE NEGATIVE (NEGATIVE); URINE PH 6.5 (4.5-8.0); URINE PROTEIN - DIPSTICK TRACE mg/dL (NEG-TRACE)
[2022-02-08 14:18] LABS: URINE NITRITE - DIPSTICK NEGATIVE (Negative)
[2022-02-09] VITALS (91 sets, daily range): BP systolic 80–111; BP diastolic 32–74
[2022-02-09 04:01] LABS: HEMATOCRIT 39.2 % (37.0-47.0); HEMOGLOBIN 13.1 g/dl (12.0-16.0); MEAN CELL VOLUME 96.1 fL CALC (80.0-100.0); MEAN CORPUSCULAR HGB 32.1 pG CALC (26.0-32.0); MEAN CORPUSCULAR HGB CONC 33.4 g/dL CAL (32.0-36.0); RED BLOOD COUNT 4.08 mill/uL (4.20-5.60); RED CELL DISTRI WIDTH 18.8 % (11.5-15.5)
[2022-02-09 04:21] LABS: BUN 29 mg/dL (8-23); BUN/CREATININE RATIO 28 (12-20 (CALC)); CHLORIDE 90 mmol/l (95-108); CREATININE 1.1 mg/dL (0.5-1.0); GFR FOR AFR.AMER. > 60 ML/MIN (>=60 (CALC)); GFR OTHER RACES 50 ML/MIN (>=60 (CALC)); MAGNESIUM 1.6 mg/dL (1.6-2.3); POTASSIUM 3.1 mmol/l (3.5-5.1); SODIUM 137 mmol/l (137-146)
[2022-02-09 04:27] LABS: ANION GAP 11 (6-22 (CALC))
[2022-02-09 04:37] LABS: CARBON DIOXIDE 39 mmol/l (22-30)
[2022-02-10] VITALS (81 sets, daily range): BP systolic 47–107; BP diastolic 29–81
[2022-02-10 05:43] LABS: HEMATOCRIT 37.7 % (37.0-47.0); HEMOGLOBIN 12.6 g/dl (12.0-16.0); MEAN CELL VOLUME 95.4 fL CALC (80.0-100.0); MEAN CORPUSCULAR HGB 31.9 pG CALC (26.0-32.0); MEAN CORPUSCULAR HGB CONC 33.4 g/dL CAL (32.0-36.0); RED BLOOD COUNT 3.95 mill/uL (4.20-5.60); RED CELL DISTRI WIDTH 18.8 % (11.5-15.5)
[2022-02-10 05:53] LABS: BUN 25 mg/dL (8-23); BUN/CREATININE RATIO 28 (12-20 (CALC)); CHLORIDE 88 mmol/l (95-108); CREATININE 0.9 mg/dL (0.5-1.0); GFR FOR AFR.AMER. > 60 ML/MIN (>=60 (CALC)); GFR OTHER RACES > 60 ML/MIN (>=60 (CALC)); MAGNESIUM 1.4 mg/dL (1.6-2.3); POTASSIUM 2.9 mmol/l (3.5-5.1); SODIUM 134 mmol/l (137-146)
[2022-02-10 06:01] LABS: ANION GAP 12 (6-22 (CALC)); CARBON DIOXIDE 37 mmol/l (22-30)
[2022-02-11] VITALS (53 sets, daily range): BP systolic 64–126; BP diastolic 36–83
[2022-02-11 07:07] LABS: BUN 18 mg/dL (8-23); BUN/CREATININE RATIO 27 (12-20 (CALC)); CHLORIDE 85 mmol/l (95-108); CREATININE 0.7 mg/dL (0.5-1.0); GFR FOR AFR.AMER. > 60 ML/MIN (>=60 (CALC)); GFR OTHER RACES > 60 ML/MIN (>=60 (CALC)); SODIUM 134 mmol/l (137-146)
[2022-02-11 07:20] LABS: ANION GAP 12 (6-22 (CALC)); CARBON DIOXIDE 40 mmol/l (22-30); MAGNESIUM 1.8 mg/dL (1.6-2.3)
[2022-02-12] VITALS (52 sets, daily range): BP systolic 51–103; BP diastolic 13–78
[2022-02-12 05:43] LABS: HEMATOCRIT 39.3 % (37.0-47.0); MEAN CELL VOLUME 95.4 fL CALC (80.0-100.0); MEAN CORPUSCULAR HGB 31.6 pG CALC (26.0-32.0); MEAN CORPUSCULAR HGB CONC 33.1 g/dL CAL (32.0-36.0); RED BLOOD COUNT 4.12 mill/uL (4.20-5.60); RED CELL DISTRI WIDTH 18.2 % (11.5-15.5)
[2022-02-12 06:04] LABS: ANION GAP 9 (6-22 (CALC)); BUN 17 mg/dL (8-23); BUN/CREATININE RATIO 23 (12-20 (CALC)); CHLORIDE 87 mmol/l (95-108); CREATININE 0.8 mg/dL (0.5-1.0); GFR FOR AFR.AMER. > 60 ML/MIN (>=60 (CALC)); GFR OTHER RACES > 60 ML/MIN (>=60 (CALC)); MAGNESIUM 1.6 mg/dL (1.6-2.3); POTASSIUM 3.6 mmol/l (3.5-5.1); SODIUM 132 mmol/l (137-146)
[2022-02-12 06:10] LABS: CARBON DIOXIDE 40 mmol/l (22-30)
[2022-02-13] VITALS (39 sets, daily range): BP systolic 51–99; BP diastolic 29–66
[2022-02-13 05:39] LABS: HEMATOCRIT 39.9 % (37.0-47.0); HEMOGLOBIN 13.3 g/dl (12.0-16.0); MEAN CELL VOLUME 95.2 fL CALC (80.0-100.0); MEAN CORPUSCULAR HGB 31.7 pG CALC (26.0-32.0); MEAN CORPUSCULAR HGB CONC 33.3 g/dL CAL (32.0-36.0); RED BLOOD COUNT 4.19 mill/uL (4.20-5.60); RED CELL DISTRI WIDTH 18.3 % (11.5-15.5)
[2022-02-13 06:17] LABS: ANION GAP 11 (6-22 (CALC)); BUN 23 mg/dL (8-23); BUN/CREATININE RATIO 24 (12-20 (CALC)); CARBON DIOXIDE 37 mmol/l (22-30); CHLORIDE 87 mmol/l (95-108); GFR FOR AFR.AMER. > 60 ML/MIN (>=60 (CALC)); GFR OTHER RACES 56 ML/MIN (>=60 (CALC)); MAGNESIUM 1.6 mg/dL (1.6-2.3); POTASSIUM 3.8 mmol/l (3.5-5.1); SODIUM 131 mmol/l (137-146)
[2022-02-14] VITALS (40 sets, daily range): BP systolic 72–104; BP diastolic 37–72
[2022-02-14 05:54] LABS: ANION GAP 10 (6-22 (CALC)); BUN 25 mg/dL (8-23); BUN/CREATININE RATIO 28 (12-20 (CALC)); CARBON DIOXIDE 38 mmol/l (22-30); CHLORIDE 88 mmol/l (95-108); CREATININE 0.9 mg/dL (0.5-1.0); GFR FOR AFR.AMER. > 60 ML/MIN (>=60 (CALC)); GFR OTHER RACES > 60 ML/MIN (>=60 (CALC)); MAGNESIUM 1.8 mg/dL (1.6-2.3); POTASSIUM 4.4 mmol/l (3.5-5.1); SODIUM 132 mmol/l (137-146)
[2022-02-15] VITALS (15 sets, daily range): BP systolic 87–105; BP diastolic 47–69
[2022-02-15 06:10] LABS: HEMATOCRIT 42.7 % (37.0-47.0); HEMOGLOBIN 14.3 g/dl (12.0-16.0); MEAN CELL VOLUME 94.5 fL CALC (80.0-100.0); MEAN CORPUSCULAR HGB 31.6 pG CALC (26.0-32.0); MEAN CORPUSCULAR HGB CONC 33.5 g/dL CAL (32.0-36.0); RED BLOOD COUNT 4.52 mill/uL (4.20-5.60)
[2022-02-15 07:20] LABS: ANION GAP 11 (6-22 (CALC)); BUN 31 mg/dL (8-23); BUN/CREATININE RATIO 32 (12-20 (CALC)); CARBON DIOXIDE 36 mmol/l (22-30); CHLORIDE 89 mmol/l (95-108); GFR FOR AFR.AMER. > 60 ML/MIN (>=60 (CALC)); GFR OTHER RACES 56 ML/MIN (>=60 (CALC)); MAGNESIUM 1.6 mg/dL (1.6-2.3); POTASSIUM 4.5 mmol/l (3.5-5.1); SODIUM 132 mmol/l (137-146)
[2022-02-16] VITALS (13 sets, daily range): BP systolic 83–110; BP diastolic 44–70
[2022-02-16 06:05] LABS: ANION GAP 12 (6-22 (CALC)); BUN 22 mg/dL (8-23); BUN/CREATININE RATIO 29 (12-20 (CALC)); CARBON DIOXIDE 36 mmol/l (22-30); CHLORIDE 90 mmol/l (95-108); CREATININE 0.8 mg/dL (0.5-1.0); GFR FOR AFR.AMER. > 60 ML/MIN (>=60 (CALC)); GFR OTHER RACES > 60 ML/MIN (>=60 (CALC)); POTASSIUM 4.1 mmol/l (3.5-5.1); SODIUM 134 mmol/l (137-146)
[2022-02-17] VITALS (19 sets, daily range): BP systolic 86–107; BP diastolic 45–74
[2022-02-17 05:23] LABS: ANION GAP 12 (6-22 (CALC)); BUN 18 mg/dL (8-23); BUN/CREATININE RATIO 25 (12-20 (CALC)); CARBON DIOXIDE 35 mmol/l (22-30); CHLORIDE 92 mmol/l (95-108); CREATININE 0.7 mg/dL (0.5-1.0); GFR FOR AFR.AMER. > 60 ML/MIN (>=60 (CALC)); GFR OTHER RACES > 60 ML/MIN (>=60 (CALC)); MAGNESIUM 1.7 mg/dL (1.6-2.3); POTASSIUM 4.6 mmol/l (3.5-5.1); SODIUM 135 mmol/l (137-146)
[2022-02-18] VITALS (43 sets, daily range): BP systolic 36–108; BP diastolic 18–71
[2022-02-18 05:29] LABS: HEMATOCRIT 37.8 % (37.0-47.0); HEMOGLOBIN 12.7 g/dl (12.0-16.0); IMMATURE GRANULOCYTES 0.3 % (0.0-5.0); MEAN CELL VOLUME 94.7 fL CALC (80.0-100.0); MEAN CORPUSCULAR HGB 31.8 pG CALC (26.0-32.0); MEAN CORPUSCULAR HGB CONC 33.6 g/dL CAL (32.0-36.0); NEUT# 5.01 thou/uL (2.00-7.15); RED BLOOD COUNT 3.99 mill/uL (4.20-5.60); RED CELL DISTRI WIDTH 17.7 % (11.5-15.5)
[2022-02-18 05:45] LABS: ANION GAP 12 (6-22 (CALC)); BUN 20 mg/dL (8-23); BUN/CREATININE RATIO 26 (12-20 (CALC)); CARBON DIOXIDE 33 mmol/l (22-30); CHLORIDE 92 mmol/l (95-108); CREATININE 0.8 mg/dL (0.5-1.0); GFR FOR AFR.AMER. > 60 ML/MIN (>=60 (CALC)); GFR OTHER RACES > 60 ML/MIN (>=60 (CALC)); MAGNESIUM 1.7 mg/dL (1.6-2.3); POTASSIUM 4.3 mmol/l (3.5-5.1); SODIUM 133 mmol/l (137-146)
[2022-02-19] VITALS (39 sets, daily range): BP systolic 74–112; BP diastolic 35–68
[2022-02-19 05:14] LABS: HEMATOCRIT 34.3 % (37.0-47.0); HEMOGLOBIN 11.5 g/dl (12.0-16.0); IMMATURE GRANULOCYTES 0.4 % (0.0-5.0); MEAN CELL VOLUME 94.8 fL CALC (80.0-100.0); MEAN CORPUSCULAR HGB 31.8 pG CALC (26.0-32.0); MEAN CORPUSCULAR HGB CONC 33.5 g/dL CAL (32.0-36.0); NEUT# 3.8 thou/uL (2.00-7.15); RED BLOOD COUNT 3.62 mill/uL (4.20-5.60); RED CELL DISTRI WIDTH 17.9 % (11.5-15.5)
[2022-02-19 05:34] LABS: BUN 23 mg/dL (8-23); BUN/CREATININE RATIO 35 (12-20 (CALC)); CARBON DIOXIDE 33 mmol/l (22-30); CHLORIDE 96 mmol/l (95-108); CREATININE 0.7 mg/dL (0.5-1.0); GFR FOR AFR.AMER. > 60 ML/MIN (>=60 (CALC)); GFR OTHER RACES > 60 ML/MIN (>=60 (CALC)); MAGNESIUM 1.6 mg/dL (1.6-2.3); SODIUM 133 mmol/l (137-146)
[2022-02-19 05:37] LABS: ANION GAP 8 (6-22 (CALC)); POTASSIUM 3.7 mmol/l (3.5-5.1)
[2022-02-20] VITALS (36 sets, daily range): BP systolic 58–102; BP diastolic 33–66
[2022-02-20 05:25] LABS: ANION GAP 8 (6-22 (CALC)); BUN 16 mg/dL (8-23); BUN/CREATININE RATIO 25 (12-20 (CALC)); CARBON DIOXIDE 32 mmol/l (22-30); CHLORIDE 98 mmol/l (95-108); CREATININE 0.7 mg/dL (0.5-1.0); GFR FOR AFR.AMER. > 60 ML/MIN (>=60 (CALC)); GFR OTHER RACES > 60 ML/MIN (>=60 (CALC)); MAGNESIUM 1.6 mg/dL (1.6-2.3); POTASSIUM 3.2 mmol/l (3.5-5.1); SODIUM 135 mmol/l (137-146)
[2022-02-20] MEDS ORDERED: ELIQUIS2.5 MG PO (09:11)
[2022-02-20] MEDS ORDERED: DIGOXIN0.125 MG PO (09:11)
[2022-02-20] MEDS ORDERED: LOPRESSOR25 MG PO (09:11)
[2022-02-20] MEDS ORDERED: LEXAPRO10 MG PO (09:12)
[2022-02-20] MEDS ORDERED: POTASSIUM CHLO20 ME2 PO (09:13)
[2022-02-20] MEDS ORDERED: ZOFRAN4 MG/TAB PO (09:13)
[2022-02-20] MEDS ORDERED: BUMETANIDE2 MG PO (09:13)
[2022-02-20] MEDS ORDERED: METOLAZONE2.5 MG PO (09:13)
[2022-02-20] MEDS ORDERED: PROTONIX40 M2 PO (09:14)
[2022-02-20] MEDS ORDERED: MIDODRINE10 MG PO (09:15)
[2022-02-20] MEDS ORDERED: LORTAB5 PO (09:16)
[2022-02-20] MEDS ORDERED: XANAX0.25 MG PO (09:16)
[2022-02-20] MEDS ORDERED: EPLERENONE25 MG PO (09:20)
[2022-02-20] MEDS ORDERED: LINZESS145 MCG PO (09:21)
[2022-02-21] VITALS (22 sets, daily range): BP systolic 70–98; BP diastolic 44–68
[2022-02-21 06:18] LABS: ANION GAP 9 (6-22 (CALC)); BUN 13 mg/dL (8-23); BUN/CREATININE RATIO 18 (12-20 (CALC)); CARBON DIOXIDE 29 mmol/l (22-30); CHLORIDE 102 mmol/l (95-108); CREATININE 0.7 mg/dL (0.5-1.0); GFR FOR AFR.AMER. > 60 ML/MIN (>=60 (CALC)); GFR OTHER RACES > 60 ML/MIN (>=60 (CALC)); MAGNESIUM 1.6 mg/dL (1.6-2.3); POTASSIUM 3.8 mmol/l (3.5-5.1); SODIUM 136 mmol/l (137-146)
== END 2022-02-21 11:10 | disposition home or self-care (01) | DRG 291 ==
LOC: ED 10:15 → ED-I 13:11 → ICU 13:18 → ED 13:18 → ICU 02-21 11:10
PROVIDERS: Emergency Medicine; Internal Medicine; ADMIT Internal Medicine; ATTEND Internal Medicine
PROC: 02HV33Z Insertion of Infusion Device into Superior Vena Cava, Percutaneous Approach (ICD-10-PCS; principal; 2022-02-08)
DX: I11.0 Hypertensive heart disease with heart failure (principal); I50.23 Acute on chronic systolic (congestive) heart failure; E87.2 Acidosis; R18.8 Other ascites; I95.9 Hypotension, unspecified; I42.8 Other cardiomyopathies; I48.91 Unspecified atrial fibrillation; K21.9 Gastro-esophageal reflux disease without esophagitis; R16.0 Hepatomegaly, not elsewhere classified; E83.42 Hypomagnesemia; I34.0 Nonrheumatic mitral (valve) insufficiency; I27.20 Pulmonary hypertension, unspecified; E87.6 Hypokalemia; K56.41 Fecal impaction; R00.0 Tachycardia, unspecified; T44.5X5A Adverse effect of predominantly beta-adrenoreceptor agonists, initial encounter; T44.995A Adverse effect of other drug primarily affecting the autonomic nervous system, initial encounter; K74.60 Unspecified cirrhosis of liver; F41.1 Generalized anxiety disorder; F32.A Depression, unspecified; Z95.810 Presence of automatic (implantable) cardiac defibrillator; Z86.73 Personal history of transient ischemic attack (TIA), and cerebral infarction without residual deficits; Z91.19 Patient's noncompliance with other medical treatment and regimen; Z20.822 Contact with and (suspected) exposure to COVID-19; F06.4 Anxiety disorder due to known physiological condition; R09.02 Hypoxemia
CPT/HCPCS: J1160; J1250; J3475

== ENCOUNTER 2022-07-10 06:52 | Inpatient (IN) | payer OTHER ==
[2022-07-10] VITALS (100 sets, daily range): BP systolic 43–137; BP diastolic 18–90
[~2022-07-10] VITALS: Ht 175.3 cm; Wt 71.3 kg
[~2022-07-10 06:52] MED LIST changes: +DIGOXIN0.125 MG PO; +ELIQUIS2.5 MG PO; +EPLERENONE25 MG PO; +LINZESS145 MCG PO; +LOPRESSOR25 MG PO
--- NOTE | 2022-07-10 07:15 | NUR ---
RECEIVED BEDSIDE REPORT FROM NIGHTSHIFT RN. PATIENT IN NAD. PROVIDER BEDSIDE.
--- NOTE | 2022-07-10 07:49 | NUR ---
PATIENT RESTING IN BED WITH DAUGHTER AT BEDSIDE. NO ACUTE DISTRESS
[2022-07-10 08:24] LABS: BASO% 0.3 % (0-3); EOS% 0.7 % (0-8); HEMATOCRIT 35.8 % (37.0-47.0); HEMOGLOBIN 12.1 g/dl (12.0-16.0); IMMATURE GRANULOCYTES 0.2 % (0.0-5.0); LYMPH% 19.4 % (15-41); MEAN CORPUSCULAR HGB 31.8 pG CALC (26.0-32.0); MEAN CORPUSCULAR HGB CONC 33.8 g/dL CAL (32.0-36.0); MONO% 12.3 % (2-13); NEUT# 3.91 thou/uL (2.00-7.15); NEUT% 67.1 % (42-76); RED BLOOD COUNT 3.8 mill/uL (4.20-5.60); RED CELL DISTRI WIDTH 14.4 % (11.5-15.5)
[2022-07-10 08:30] LABS: INTERNATIONAL NORMALIZED RATIO 1.5 RATIO (0.7-1.3); PROTHROMBIN TIME 14.3 SECONDS (9.0-12.5)
[2022-07-10 08:33] LABS: ALBUMIN 3.9 g/dL (3.2-5.0); ALKALINE PHOSPHATASE 164 u/l (38-126); ANION GAP 11 (6-22 (CALC)); CARBON DIOXIDE 33 mmol/l (22-30); CHLORIDE 93 mmol/l (95-108); CREATININE 1.3 mg/dL (0.5-1.0); GFR FOR AFR.AMER. 50 ML/MIN (>=60 (CALC)); GFR OTHER RACES 41 ML/MIN (>=60 (CALC)); POTASSIUM 3.4 mmol/l (3.5-5.1); SGOT/AST 33 u/l (9-36); SODIUM 134 mmol/l (137-146); TOTAL PROTEIN 8.2 g/dL (6.3-8.2)
--- NOTE | 2022-07-10 08:34 | NUR ---
PATIENT RESTING IN BED. WARM BLANKETS PROVIDED.
[2022-07-10 08:44] LABS: BILIRUBIN, TOTAL 1.5 mg/dL (0.0-1.4); BUN 58 mg/dL (8-23); BUN/CREATININE RATIO 45 (12-20 (CALC))
[2022-07-10 08:46] LABS: MEAN CELL VOLUME 94.2 fL CALC (80.0-100.0)
--- NOTE | 2022-07-10 10:57 | NUR ---
RN RECEIVED PT FROM ED WITH ED NURSE BEDSIDE HANDOFF. DOPAMINE AND DOBUTAMINE DRIP IN PLACE AND PATENT. NO SIGNS OF IMMEDIATE DISTRESS NOTED; PT A/O X3. PLAN OF CARE REVIEWED, ALL QUESTIONS ANSWERED, PT REFUSES TAI CATHETER AT THIS TIME BUT AGREEABLE TO RACHELCK. PT VERBALIZES UNDERSTANDING. BED IN LOWEST POSITION, BRAKES APPLIED, BED ALARM ACTIVE, CALL LIGHT WITHIN REACH. WILL CONTINUE TO MONITOR.
--- NOTE | 2022-07-10 11:06 | NUR ---
BEDSIDE REPORT GIVEN TO JUSTIN ON ICU. PATIENT TRANSFERRED FROM STRETCHER TO BED .
--- NOTE | 2022-07-10 14:00 | NUR ---
PT RESTING IN BED WITH EYES CLOSED; RESPIRATIONS EVEN AND UNLABORED WITH NO SIGNS OF DISTRESS NOTED AT THIS TIME. CALL LIGHT WITHIN REACH; WILL CONTINUE TO MONITOR.
--- NOTE | 2022-07-10 18:30 | NUR ---
RN AT BEDSIDE FOR TELE CRITICAL CARE WITH DR SAVAGE; PLAN TO TITRATE DOPAMINE DRIP DOWN TO OFF, CONTINUE DOBBUTAMINE DRIP AND TITRATE NEEDED PER PROTOCOL. CASE MANAGEMENT TO BE CONSULTED TO DISCUSS HOME HOSPICE; PT VERBALIZED NOT HAPPY WITH HOSPICE HOUSE EXPERIENCE. ALL QUESTIONS ANSWERED; PT VERBALIZES UNDERSTANDING. WILL CONTINUE TO MONITOR.
--- NOTE | 2022-07-10 20:00 | NUR ---
RCD REPORT FROM DAYSWYFT. PT IS IN BED TALKING ON THE PHONE WITH FAMILY. LUNGS ARE DIMINISHED, PT IS ON RA AND IS SATTING AT 97. PT GOT UP TO BEDSIDE COMMODE AND TRIED TO PASS A BM. PT HAS A TAI IN WITH PALE CLOUDY YELLOW. PT IS COMPLAINING OF BEING NAUSEOUS AND ITCHY. MD AWARE.
--- NOTE | 2022-07-10 22:25 | NUR ---
PT IS IN BED RESTING AND WATCHING TV. NO OTHER CHANGE.
[2022-07-11] VITALS (125 sets, daily range): BP systolic 36–143; BP diastolic 11–128
--- NOTE | 2022-07-11 | NUR ---
pt is currently sleeping. I titrated the dopamine down to 2.5 and BP crashed. Increased the dopamine and dobutamine. BP is now stablazing.
--- NOTE | 2022-07-11 02:26 | NUR ---
pt is currently sleeping. Increased her dopamine due to her dobutamine being maxed out and BP unstable
--- NOTE | 2022-07-11 04:12 | NUR ---
PT IS SLEEPING. BP FLUCTUATES BETWEEN STABLE AND UNSTABLE.
[2022-07-11 05:57] LABS: URINE BILIRUBIN - DIPSTICK NEGATIVE (NEGATIVE); URINE BLOOD DIPSTICK LARGE (NEGATIVE); URINE COLOR YELLOW; URINE GLUCOSE - DIPSTICK NEGATIVE (NEGATIVE); URINE KETONE NEGATIVE (NEGATIVE); URINE LEUK ESTERASE NEGATIVE (NEGATIVE); URINE NITRITE - DIPSTICK NEGATIVE (Negative); URINE PROTEIN - DIPSTICK NEGATIVE (NEG-TRACE); URINE UROBILINOGEN - DIPSTICK 0.2 E.U./dL (0.2)
[2022-07-11 05:58] LABS: HEMATOCRIT 33.4 % (37.0-47.0); HEMOGLOBIN 11.3 g/dl (12.0-16.0); MEAN CELL VOLUME 93.6 fL CALC (80.0-100.0); MEAN CORPUSCULAR HGB 31.7 pG CALC (26.0-32.0); MEAN CORPUSCULAR HGB CONC 33.8 g/dL CAL (32.0-36.0); RED BLOOD COUNT 3.57 mill/uL (4.20-5.60); RED CELL DISTRI WIDTH 14.4 % (11.5-15.5)
[2022-07-11 06:05] LABS: URINE SQUAMOUS EPITHELIAL CELL FEW EPI/hpf (0-FEW); URINE WBC 0-2 WBC/hpf (0-5)
[2022-07-11 06:13] LABS: CREATININE 1.2 mg/dL (0.5-1.0); MAGNESIUM 1.6 mg/dL (1.6-2.3)
--- NOTE | 2022-07-11 06:24 | NUR ---
PT IS SLEEPING. BP IS STABLE.
--- NOTE | 2022-07-11 11:06 | NUR ---
PT SEEN AWAKE, ALERT, ORIENTED X 3. LUNGS CLEAR, RA. PT WITH 3+ BLE EDEMA, PULSES PALPABLE BUT WEAK. DOPAMINE AND DOBUTAMINE CONTINUE.
--- NOTE | 2022-07-11 15:12 | NUR ---
PT SEEN BY DR SAVAGE BY TELEMEDICINE. PLAN IS TO STAY THE COURSE IT APPEARS TO BE ALLOWING HER TO BREATHE BETTER. DOBUTAMINE REMAINS AT 18, BLOOD PRESSURE HOVERING AROUND 80s TO 90s.
--- NOTE | 2022-07-11 17:17 | NUR ---
O2 3L NC SAT 96%
--- NOTE | 2022-07-11 17:37 | NUR ---
PT RECEIVED SOLUMEDROL AND BENADRYL FOR CONTINUED ITCHING. PT ALSO STATED THAT SHE WAS NAUSEATED, ZOFRAN PROVIDED. PT AT REST IN THE BED, NO DISTRESS NOTED.
--- NOTE | 2022-07-11 20:00 | NUR ---
awakens easily. denies acute distress. awake overnight monitor shows a fib freq pvcs. #20 lac ivf infusing well. po fluids restricted. ziegler cath in place. urine clear yellow. fall precautions cont.
--- NOTE | 2022-07-11 21:00 | NUR ---
requested dave be held because she may be "tapped tomorrow." dave withheld.
--- NOTE | 2022-07-11 23:00 | NUR ---
c/o itching. benadryl 50mg iv given.
[2022-07-12] VITALS (38 sets, daily range): BP systolic 29–138; BP diastolic 12–120
--- NOTE | 2022-07-12 01:31 | NUR ---
director cardiac shows 19 seconds of vtach.
--- NOTE | 2022-07-12 02:00 | NUR ---
resting quietly. resps even & unlabored. no apparent distress. monitor car operator shows a fib freq pvcs.
--- NOTE | 2022-07-12 03:25 | NUR ---
awake. c/o sob & tight abd. sao2 93%. requested bumex early-given.
--- NOTE | 2022-07-12 03:40 | NUR ---
lab here. blood drawn.
--- NOTE | 2022-07-12 03:49 | NUR ---
lab here. blood drawn.
--- NOTE | 2022-07-12 04:30 | NUR ---
awake. said "i think i'm getting too much fluid." instructed pt sao2 is 97-98%. this fiction writer didn't think she was getting too much fluid. xanax encouraged. pt agreed. xanax 0.25mg po given.
[2022-07-12 05:52] LABS: HEMATOCRIT 36.2 % (37.0-47.0); HEMOGLOBIN 11.8 g/dl (12.0-16.0); MEAN CELL VOLUME 93.3 fL CALC (80.0-100.0); MEAN CORPUSCULAR HGB 30.4 pG CALC (26.0-32.0); MEAN CORPUSCULAR HGB CONC 32.6 g/dL CAL (32.0-36.0); RED BLOOD COUNT 3.88 mill/uL (4.20-5.60); RED CELL DISTRI WIDTH 14.4 % (11.5-15.5)
[2022-07-12 06:12] LABS: ALBUMIN 3.7 g/dL (3.2-5.0); BILIRUBIN, TOTAL 2.3 mg/dL (0.0-1.4); CREATININE 1.3 mg/dL (0.5-1.0); MAGNESIUM 1.8 mg/dL (1.6-2.3); POTASSIUM 3.3 mmol/l (3.5-5.1); TOTAL PROTEIN 7.8 g/dL (6.3-8.2)
--- NOTE | 2022-07-12 10:04 | NUR ---
PT TO BSC WITH ASSIST FROM STUDENT NURSE MARGARET. DOPAMINE AND DOBUTAMINE CONTINUE.
--- NOTE | 2022-07-12 17:01 | NUR ---
PT ASSISTED OOB INTO CHAIR, WHERE SHE WAS ABLE TO WASH UP. BED LINEN CHANGED.
--- NOTE | 2022-07-12 20:20 | NUR ---
RECEIVED PATIENT IN THE CHAIR .C/O VERY UNCOMFORTABLE. ALERT AND ORIENTED X 4. C/O ITCHINESS. BENADRYL 25 MG I.V GIVEN PER ORDERED.
[2022-07-13] VITALS (92 sets, daily range): BP systolic 33–127; BP diastolic 14–89
--- NOTE | 2022-07-13 04:48 | NUR ---
PATIENT AWAKE ALL NIGHT HALLUCINATING .SHE IS SEEING ANTS IN THE ROOM. RE-ORIENTED TO TIME AND PLACED.
--- NOTE | 2022-07-13 05:51 | NUR ---
ASSISTED PATIENT IN THE CHAIR. SOB ON EXERTION NOTED. 2L nc applied.
[2022-07-13 06:38] LABS: HEMATOCRIT 36.4 % (37.0-47.0); HEMOGLOBIN 12.1 g/dl (12.0-16.0); MEAN CELL VOLUME 92.2 fL CALC (80.0-100.0); MEAN CORPUSCULAR HGB 30.6 pG CALC (26.0-32.0); MEAN CORPUSCULAR HGB CONC 33.2 g/dL CAL (32.0-36.0); RED BLOOD COUNT 3.95 mill/uL (4.20-5.60); RED CELL DISTRI WIDTH 14.3 % (11.5-15.5)
[2022-07-13 06:39] LABS: ALBUMIN 3.8 g/dL (3.2-5.0); ALKALINE PHOSPHATASE 119 u/l (38-126); ANION GAP 11 (6-22 (CALC)); BILIRUBIN, TOTAL 2.2 mg/dL (0.0-1.4); BUN 50 mg/dL (8-23); BUN/CREATININE RATIO 46 (12-20 (CALC)); CARBON DIOXIDE 32 mmol/l (22-30); CHLORIDE 87 mmol/l (95-108); CREATININE 1.1 mg/dL (0.5-1.0); GFR FOR AFR.AMER. > 60 ML/MIN (>=60 (CALC)); GFR OTHER RACES 50 ML/MIN (>=60 (CALC)); MAGNESIUM 1.6 mg/dL (1.6-2.3); POTASSIUM 3.1 mmol/l (3.5-5.1); SGOT/AST 30 u/l (9-36); SODIUM 127 mmol/l (137-146)
--- NOTE | 2022-07-13 08:00 | NUR ---
Patient sitting up in chair; denies any pain at this time. Patient would like to remain in chair for breakfast. States she has no issues or concerns at this time.
--- NOTE | 2022-07-13 08:47 | NUR ---
Dr Morillo present at bedside to assess pt and discuss plan of care;
--- NOTE | 2022-07-13 10:00 | NUR ---
Patient up to BSC. Patient states she has had difficulty having a BM. Patient denies any pain at this time. No s/s of distress.
--- NOTE | 2022-07-13 11:35 | NUR ---
Patient refused to put oxygen sensor back on. Stated it bothered her. Offered to move sensor to a different finger or try a different sensor. Patient stated she will put it back on later but is "breathing okay right now". Patient stated she will have sensor put back on after taking a nap. No s/s of distress. No other concerns at this time.
--- NOTE | 2022-07-13 12:48 | NUR ---
Patient lying in bed sleeping. No s/s of distress.
--- NOTE | 2022-07-13 13:10 | NUR ---
spoke with Dr Morillo, Rx and director in regards to plan of care; dopamine to be weaned while intiating levophed to maintain bp; central line to be placed per ER MD; dobutamine gtt to be stopped once milrinone initiated; will continue to monitor
--- NOTE | 2022-07-13 14:00 | NUR ---
Patient lying in bed resting. No s/s of distress. Patient denies any pain at this time.
--- NOTE | 2022-07-13 14:08 | NUR ---
consulted with director in regards to starting med conversion (levophed, milrinone) while awaitint central line placement; advised to wait for central line
--- NOTE | 2022-07-13 16:00 | NUR ---
Patient lying in bed with bear hugger. No s/s of distress. Patient waiting to have central line placed. No issues or concerns at this time.
--- NOTE | 2022-07-13 18:00 | NUR ---
Patient lying down in bed. Patient advised and getting prepped for central line placement. Patient states her feet are cramping up, but it is not painful. Patient has no other issues or concerns at this time. No s/s of distress.
--- NOTE | 2022-07-13 18:30 | NUR ---
Dr Mckeon present at bedside for central line placement; TLC placed to RIJ x1 attempt using sterile technique; flushed and patent with brisk blood return; xray present; placement confirmed and approval to use per Dr Mckeon; will continue to monitor
--- NOTE | 2022-07-13 19:15 | NUR ---
pt sitting up at bedside, denies pain, dopamine and dobutamine being titrated down, levophed already started
--- NOTE | 2022-07-13 21:30 | NUR ---
both dobutamine and dopamine off, milrinone started
--- NOTE | 2022-07-13 22:30 | NUR ---
milrinone bolus infused, maintanance drip running, levophed titrated and pt stable, good urine output
[2022-07-14] VITALS (157 sets, daily range): BP systolic 66–149; BP diastolic 31–105
--- NOTE | 2022-07-14 00:25 | NUR ---
pt resting, denies needs, vs have remained stable, some variation in BP due to pt position changes
--- NOTE | 2022-07-14 03:06 | NUR ---
tylenol given for pt c/o LOMBARDO, states she otherwise feels ok
--- NOTE | 2022-07-14 03:48 | NUR ---
pt got up to BSC, had an aprox 10 second run of V-tach, her defibrillator went off, pt back to bed with no BM
[2022-07-14 05:52] LABS: BASO% 0.1 % (0-3); EOS% 0.7 % (0-8); HEMOGLOBIN 10.7 g/dl (12.0-16.0); IMMATURE GRANULOCYTES 0.3 % (0.0-5.0); LYMPH% 5.7 % (15-41); MEAN CELL VOLUME 91.7 fL CALC (80.0-100.0); MEAN CORPUSCULAR HGB 30.7 pG CALC (26.0-32.0); MEAN CORPUSCULAR HGB CONC 33.4 g/dL CAL (32.0-36.0); MONO% 11.9 % (2-13); NEUT# 5.68 thou/uL (2.00-7.15); NEUT% 81.3 % (42-76); RED BLOOD COUNT 3.49 mill/uL (4.20-5.60); RED CELL DISTRI WIDTH 14.3 % (11.5-15.5)
[2022-07-14 06:09] LABS: ALBUMIN 3.2 g/dL (3.2-5.0); ALKALINE PHOSPHATASE 101 u/l (38-126); BILIRUBIN, TOTAL 2.7 mg/dL (0.0-1.4); BUN 40 mg/dL (8-23); BUN/CREATININE RATIO 43 (12-20 (CALC)); CHLORIDE 86 mmol/l (95-108); CREATININE 0.9 mg/dL (0.5-1.0); GFR FOR AFR.AMER. > 60 ML/MIN (>=60 (CALC)); GFR OTHER RACES > 60 ML/MIN (>=60 (CALC)); SGOT/AST 26 u/l (9-36); SODIUM 129 mmol/l (137-146); TOTAL PROTEIN 6.8 g/dL (6.3-8.2)
[2022-07-14 06:12] LABS: ANION GAP 7 (6-22 (CALC))
[2022-07-14 06:24] LABS: CARBON DIOXIDE 39 mmol/l (22-30)
--- NOTE | 2022-07-14 08:00 | NUR ---
Patient lying in bed. Stated she is feeling tired. Patient states she is experiencing b/l leg aching. . Patient denies needing any pain medication or comfort measures. No s/s of distress. No additional concerns at this time.
--- NOTE | 2022-07-14 08:48 | NUR ---
clinical writer present in room with pt; pt noted to grab chest, vtach noted on monitor; AICD shocked pt; Wwriter remains at bedside; will continue to monitor
--- NOTE | 2022-07-14 09:15 | NUR ---
Dr Morillo consulted per this automotive service writer in regards to AICD shocking pt twice since the start Milrinone, last shocked at 0848; no orders to titrate medication down; Dr Morillo will attempt to contact Dr Baker; will await call; automotive service writer to call Dr Pearce
--- NOTE | 2022-07-14 09:18 | NUR ---
pharmacy consulted per this auto service writer in regards to Milrinone and ruma; to contacted in regards to titration rate/dose
--- NOTE | 2022-07-14 09:19 | NUR ---
O2 SAT ON 4L NC IS 99%. DECREASED TO 3L.
--- NOTE | 2022-07-14 09:48 | NUR ---
received called from Dr Morillo; orders received and placed on chart; will continue to monitor
--- NOTE | 2022-07-14 10:00 | NUR ---
Patient in bed sleeping. No s/s of distress.
--- NOTE | 2022-07-14 11:33 | NUR ---
Dr Pearce notified per this selling underwriter of vtach with AICD shocking pt twice this am last shock admin at 08[address]. informed Dr Morillo was notified this am due to request yesterday to notify "him" in regards milrinone and he will contact Dr Baker; will continue to monitor
--- NOTE | 2022-07-14 12:00 | NUR ---
Patient up to BSC. Patient states she is experiencing b/l foot pain. She denies wanting any pain medication at this time. Patient states she takes Allopurinol for gout at home, believes that is the issue for the pain. Advised patient would discuss adding medication to regime. No other issues or concerns a this time.
--- NOTE | 2022-07-14 12:51 | NUR ---
Patient decided to take Lortab for low ext pain. Will f/u with MD during rounding about adding allopurinol to patient's medication list.
--- NOTE | 2022-07-14 14:00 | NUR ---
Patient lying in bed sleeping. No s/s of distress at this time.
--- NOTE | 2022-07-14 15:15 | NUR ---
Dr Pearce present at bedside to assess pt and discuss plan of care; Dr Pearce has been informed/updated on plan of care per Dr Morillo and Dr Baker to discontinue Milrinone gtt and wean levophed gtt; Dr Pearce concur and orders obtained; informed pt has refused both metalozone and bumex today; orders placed on chart
--- NOTE | 2022-07-14 15:16 | NUR ---
Dr. Ramses vlaentine at bedside.
--- NOTE | 2022-07-14 16:00 | NUR ---
Patient lying in bed. No s/s of distress. No issues or concerns at this time.
--- NOTE | 2022-07-14 18:00 | NUR ---
Patient sitting up in bed eating dinner. Patient denies any pain at this time. No s/s of distress at this time. No issues or concerns at this time.
--- NOTE | 2022-07-14 20:10 | NUR ---
pt up to BSC, c/o pain in legs/feet, denies pain meds, no BM
--- NOTE | 2022-07-14 22:40 | NUR ---
pt continues to c/o leg/foot pain, also continues to refuse pain meds, pt repositioned
[2022-07-15] VITALS (71 sets, daily range): BP systolic 31–214; BP diastolic 14–188
--- NOTE | 2022-07-15 00:12 | NUR ---
pt restless, having difficulty getting comfortable, continues to refuse pain meds
--- NOTE | 2022-07-15 03:25 | NUR ---
pt has been up to BSC again with difficulty due to sore feet, refuses pain meds, had moderate, formed, brown stool
--- NOTE | 2022-07-15 08:00 | NUR ---
Patient lying in bed. Stated she is tired from having two bowel movements this morning. Patient states she is having b/l foot pain she describes as "tender". States she does not want any medication for the pain. Patient was repositioned to help with sleep. No s/s of distress. No other issues or concerns at this time.
--- NOTE | 2022-07-15 09:05 | NUR ---
O2 SAT 98% ON 2L
--- NOTE | 2022-07-15 10:00 | NUR ---
Patient is back to bed from bedside commode. Patient produced a large, brown stool. Patient states she is continuning to have pain in both feet, but denies needing any pain medication at this time. No s/s of distress. No other issues or concerns at this time.
--- NOTE | 2022-07-15 11:24 | NUR ---
Dr. Ramses valentine at [facility]. Patient's uric acid level was 13.1. adding allopurinol 100mg daily to regimen. CBC and CMP to be drawn.
--- NOTE | 2022-07-15 12:00 | NUR ---
Patient lying in bed, eyes closed, appears to be sleeping. No s/s of distress.
[2022-07-15 12:17] LABS: BASO% 0.1 % (0-3); EOS% 0.3 % (0-8); HEMATOCRIT 35.7 % (37.0-47.0); HEMOGLOBIN 11.6 g/dl (12.0-16.0); IMMATURE GRANULOCYTES 0.7 % (0.0-5.0); LYMPH% 9.8 % (15-41); MEAN CELL VOLUME 94.4 fL CALC (80.0-100.0); MEAN CORPUSCULAR HGB 30.7 pG CALC (26.0-32.0); MEAN CORPUSCULAR HGB CONC 32.5 g/dL CAL (32.0-36.0); MONO% 13.2 % (2-13); NEUT# 5.34 thou/uL (2.00-7.15); NEUT% 75.9 % (42-76); RED BLOOD COUNT 3.78 mill/uL (4.20-5.60); RED CELL DISTRI WIDTH 14.5 % (11.5-15.5)
[2022-07-15 12:28] LABS: ALBUMIN 3.5 g/dL (3.2-5.0); ALKALINE PHOSPHATASE 121 u/l (38-126); ANION GAP 10 (6-22 (CALC)); BILIRUBIN, TOTAL 2.7 mg/dL (0.0-1.4); BUN 33 mg/dL (8-23); BUN/CREATININE RATIO 36 (12-20 (CALC)); CARBON DIOXIDE 36 mmol/l (22-30); CHLORIDE 90 mmol/l (95-108); CREATININE 0.9 mg/dL (0.5-1.0); GFR FOR AFR.AMER. > 60 ML/MIN (>=60 (CALC)); GFR OTHER RACES > 60 ML/MIN (>=60 (CALC)); POTASSIUM 3.6 mmol/l (3.5-5.1); SGOT/AST 29 u/l (9-36); SODIUM 132 mmol/l (137-146); TOTAL PROTEIN 7.5 g/dL (6.3-8.2)
--- NOTE | 2022-07-15 14:14 | NUR ---
Patient lying in bed, eyes closed, appears to be sleeping. No s/s of distress at this time.
--- NOTE | 2022-07-15 16:00 | NUR ---
Patient lying in bed. Patient was repositioned with the help of another nurse. Patient shows no s/s of distress. States she would like to have a bath later this evening. No issues or concers at this time.
--- NOTE | 2022-07-15 18:10 | NUR ---
Patient sitting up in bed eating dinner. Patient had an assisted bed bath and linen change at 1730. Patient shows no s/s of distress at this time. Patient stated she is contining to have tenderness in her feet. Does not want anything for the pain at this time. No issues or concerns at this time.
--- NOTE | 2022-07-15 18:52 | NUR ---
Apoorva, supervisor [employer], notifed that patient received 2 doses of Eliquis July 13. Eliquis was to be withheld for paracentesis scheduled July 17. Bottling Line Operator stated she would contacted the radiology department to make the [employer], aware of the medication the patient received.
[2022-07-16] VITALS (28 sets, daily range): BP systolic 39–118; BP diastolic 24–87
[2022-07-16 05:35] LABS: HEMATOCRIT 36.1 % (37.0-47.0); HEMOGLOBIN 11.9 g/dl (12.0-16.0); MEAN CELL VOLUME 93.3 fL CALC (80.0-100.0); MEAN CORPUSCULAR HGB 30.7 pG CALC (26.0-32.0); RED BLOOD COUNT 3.87 mill/uL (4.20-5.60); RED CELL DISTRI WIDTH 14.7 % (11.5-15.5)
[2022-07-16 05:45] LABS: ALBUMIN 3.6 g/dL (3.2-5.0); BILIRUBIN, TOTAL 2.9 mg/dL (0.0-1.4); CREATININE 1.2 mg/dL (0.5-1.0); POTASSIUM 3.8 mmol/l (3.5-5.1); TOTAL PROTEIN 7.6 g/dL (6.3-8.2)
--- NOTE | 2022-07-16 07:10 | NUR ---
R'CD REPORT FROM SELENA DIAMOND. PT HAS BEEN OBSERVED SITTING UP IN BED. PT HAS C/O NAUSEA WILL MEDICATE APPROPRIATELY. PT IS A&OX3, PT ON 2LNC. PT VS ASSESSED. PT HAS CALL LIGHT NEAR AND BSC, PT STATES SHE HAS BEEN GETTING UP TO USE SELF. PT HAS LEVO INFUSING @ 15MCG/MIN. WILL TITRATE PER PROTOCOL. WILL CONTINUE TO MONITOR.
--- NOTE | 2022-07-16 12:00 | NUR ---
PT IS AWAKE AND AHS 10/10 PAIN TO ABD. WILL MAKE CALL OUT TO DR TO MEDICATE. PT DAUGHTER HAS ARRIVED AND AN UPDATE WAS PROVIDED. PT HAS NO CHANGE TO ASSESSMENT. PT REMAINS ON LEVO, TITRATING PER ORDER, MONITORING CLOSELY. PT HAS CALL LIGHT NEAR AND WILL BE REASSESED.
--- NOTE | 2022-07-16 16:40 | NUR ---
PT IS SLEEPING, EASILY AROUSABLE, PT HAS NO C/O PAIN. PT HAS CALL LIGHT NEAR.
--- NOTE | 2022-07-16 18:42 | NUR ---
PT HAS BEEN TITRATED ON LEVO TO 4MCG/MIN PER DR ORDER.
--- NOTE | 2022-07-16 22:36 | NUR ---
PT RECEIVED LYING IN BED RESTING, A/OX3 CALM AND COOPERATIVE. TELE MONITORING IN PROGRESS. VITALS NOTED. PT REPORTS PAIN, PT ON 4LNC O2, DENIES DISCOMFORT. RIGHT IJ TLC PATENT LEVO AT 4MCG RUNNING, IVF 0.9NS RUNNING AT 5ML/HR. BILATERAL LOWER EXTREMITIES ARE EDEMATOUS +2, ABDOMEN DISTENDED. TAI IN PLACE, SECURED AND HANGING BELOW BLADDED. BED LOW AND LOCKED, SAFTEY PRECAUTIONS IN PLACE. CALL LIGHT WITHIN REACH WILL CONTINUE TO MONITOR.
[2022-07-17] VITALS (27 sets, daily range): BP systolic 72–107; BP diastolic 34–83
[2022-07-17 04:05] LABS: HEMATOCRIT 36.4 % (37.0-47.0); HEMOGLOBIN 11.9 g/dl (12.0-16.0); MEAN CELL VOLUME 93.3 fL CALC (80.0-100.0); MEAN CORPUSCULAR HGB 30.5 pG CALC (26.0-32.0); MEAN CORPUSCULAR HGB CONC 32.7 g/dL CAL (32.0-36.0); RED BLOOD COUNT 3.9 mill/uL (4.20-5.60); RED CELL DISTRI WIDTH 14.7 % (11.5-15.5)
[2022-07-17 04:18] LABS: ALBUMIN 3.7 g/dL (3.2-5.0); BILIRUBIN, TOTAL 2.4 mg/dL (0.0-1.4); CREATININE 1.8 mg/dL (0.5-1.0); MAGNESIUM 2.2 mg/dL (1.6-2.3); POTASSIUM 4.4 mmol/l (3.5-5.1); TOTAL PROTEIN 7.9 g/dL (6.3-8.2)
--- NOTE | 2022-07-17 07:41 | NUR ---
REPORT RECEIVED FROM BROTH SETTER - PT SLEEPING IN BED - NO S/S DISTRESS - LEVO AT 4 AND VSS - CALL LIGHT IN REACH
--- NOTE | 2022-07-17 09:17 | NUR ---
Pt resting in bed - pt stated shes very weak today and does not want to get on her feet - VSS - denies any pain or discomfort - call light in reach
--- NOTE | 2022-07-17 11:36 | NUR ---
PT WENT FOR PARACENTESIS - 4.7 LITERS REMOVED - PT C/O MILD PAIN ACROSS ABD - VSS - PT DENIES ANY NEEDS AT THIS TIME - CALL LIGHT IN REACH
--- NOTE | 2022-07-17 13:02 | NUR ---
Pt sleeping in bed - NNO - states shes tired and wants to rest - call light in reach - will monitor
--- NOTE | 2022-07-17 15:49 | NUR ---
PT RESTING IN BED - DENIES PAIN OR ANY NEEDS AT THIS TIME - VSS - CALL LIGHT IN REACH
--- NOTE | 2022-07-17 17:12 | NUR ---
Pt asleep in bed - VSS - NNO - call light in reach
--- NOTE | 2022-07-17 19:15 | NUR ---
R'CD REPORT FROM PM RN, PT IS SITTING UP IN BED, A&OX3, PT FOLLOWS COMMANDS APPROPRIATELY, PT HAS NO C/O PAIN, SOB, PT IS ON 4LNC, PT HAS RIJ PATENT AND HAS LEVO INFUSING AT 4MCG/MIN. PT IS REQUESTING TO HAVE SOMETHING TO HELP SLEEP, CALL WILL BE MADE OUT TO BLASTER HELPER. PT HAS CALL LIGHT NEAR, AND IS ABLE TO MAKE HER NEEDS KNOWN. WILL CONTINUE TO MONITOR,
[2022-07-18] VITALS (47 sets, daily range): BP systolic 35–115; BP diastolic 14–77
--- NOTE | 2022-07-18 | NUR ---
PT IS SLEEPING, EASILY AROUSED. PT HAS NO CHANGE TO ASSESSMENT. CALL LIGHT NEAR.
--- NOTE | 2022-07-18 04:00 | NUR ---
PT IS AWAKE AND HAS BEEN ASSISTED TO SITTING UP IN BED, PT REQUESTING COFFEE. PT HAS NO C/O PAIN,SOB AT THIS TIME. PT STATES SHE SLEPT WELL, PT STATES SHE HOPES TO GO HOME TODAY. PT VS ASSESSED. PT HAS NO CHANGE TO ASSESSMENT. PT HAS CALL LIGHT NEAR, WILL CONTINUE TO MONITOR. PT HAS LEVO INFUSING @ 3MCG/MIN. AND O2 @ 2LNC. O2 SATS 100%
[2022-07-18 05:28] LABS: HEMATOCRIT 38.6 % (37.0-47.0); HEMOGLOBIN 12.4 g/dl (12.0-16.0); MEAN CELL VOLUME 94.6 fL CALC (80.0-100.0); MEAN CORPUSCULAR HGB 30.4 pG CALC (26.0-32.0); MEAN CORPUSCULAR HGB CONC 32.1 g/dL CAL (32.0-36.0); RED BLOOD COUNT 4.08 mill/uL (4.20-5.60); RED CELL DISTRI WIDTH 14.7 % (11.5-15.5)
[2022-07-18 05:53] LABS: ALBUMIN 3.6 g/dL (3.2-5.0); BILIRUBIN, TOTAL 1.6 mg/dL (0.0-1.4); MAGNESIUM 2.1 mg/dL (1.6-2.3); POTASSIUM 4.8 mmol/l (3.5-5.1); TOTAL PROTEIN 7.7 g/dL (6.3-8.2)
--- NOTE | 2022-07-18 06:51 | NUR ---
PT REPORT RECEIVED FROM ANODIC OPERATOR. PT RESTING QUIETLY AT THIS TIME. NO COMPLAINTS. WILL CONTINUE TO MONITER.
--- NOTE | 2022-07-18 08:52 | NUR ---
O2 SAT ON 2L NC 99%
--- NOTE | 2022-07-18 10:54 | NUR ---
PT RESTING QUIETLY ON BED, TALKING WITH FAMILY. VITAL SIGNS STABLE.
--- NOTE | 2022-07-18 13:23 | NUR ---
pt got up to bedside commode and sat and got a complete bed bath and linen change. then sat in recliner. emptied ziegler out with 500 of dark yellow urine and wrote it on board in room. pt wants to keep track.
--- NOTE | 2022-07-18 17:48 | NUR ---
PT RESTING IN BED, EATING DINNER MEAL. HAS BEEN VISITING WITH FAMILY AND WATCHING TV. DENIES ANY COMPLAINTS AT THIS TIME. VITAL SIGNS STABLE. WILL CONTINUE TO MONITER AND ASSESS PT.
[2022-07-19] VITALS (122 sets, daily range): BP systolic 26–188; BP diastolic 10–161
[2022-07-19 05:42] LABS: HEMATOCRIT 36.3 % (37.0-47.0); HEMOGLOBIN 11.9 g/dl (12.0-16.0); MEAN CORPUSCULAR HGB 30.8 pG CALC (26.0-32.0); MEAN CORPUSCULAR HGB CONC 32.8 g/dL CAL (32.0-36.0); RED BLOOD COUNT 3.86 mill/uL (4.20-5.60); RED CELL DISTRI WIDTH 14.7 % (11.5-15.5)
[2022-07-19 06:03] LABS: ALBUMIN 3.5 g/dL (3.2-5.0); BILIRUBIN, TOTAL 1.3 mg/dL (0.0-1.4); CREATININE 1.6 mg/dL (0.5-1.0); MAGNESIUM 1.9 mg/dL (1.6-2.3); POTASSIUM 4.2 mmol/l (3.5-5.1); TOTAL PROTEIN 7.3 g/dL (6.3-8.2)
--- NOTE | 2022-07-19 07:28 | NUR ---
PT REPORT RECEIVED. PT RESTING QUIETLY ON BED, WATCHING TV. LEVO HAS BEEN SHUT OFF DURING PELLET MILL OPERATOR , B/P HOLDING GOOD 94/62
--- NOTE | 2022-07-19 08:22 | NUR ---
O2 SAT ON 2L NC IS 97%
--- NOTE | 2022-07-19 09:00 | NUR ---
in talking with pt, she wanted to sit up on side of bed. BLOOD PRESSURE RECYCLING SO WAITED, BLOOD PRESSURE WENT DOWN TO 36/10, READJUSTED BLOOD PRESSURE CUFF AND RECYCLED AGAIN, PT REMAINED LOW, HOOKED UP LEVOPHED IV TO PT TO BRING UP AND CALLED DR. ROCHA FOR ANY OTHER ORDERS. WILL KEEP LEVOPHED ON, LEVOPHED UP TO 12, PT REMAINS ALERT/ORIENTED X3, STATES FEELS WARM, FAN PLACED IN FRONT OF PT, AND BRITTANY WALTERS WALKED INTO ROOM, DOPAMINE HUNG AT 5 WITH LEVO AT 12 AND BLOOD PRESSURE HAS COME UP TO 124/81 HEART RATE IN THE 140-150'S, EKG OBTAINED PER RESPIRATORY, DR. ROCHA AT BEDSIDE. CONTINUE TO MONITER PT WITH DOPAMINE AND LEVOPHED INFUSING.
--- NOTE | 2022-07-19 10:52 | NUR ---
PT RESTING QUIETLY WITH FRIEND AT BEDSIDE. BLOOD PRESSURE 126/85 AND HEART RATE 141. PT REMAINS ALERT/ORIENTED, TALKING AND AWARE OF WHAT IS GOING ON.
--- NOTE | 2022-07-19 13:00 | NUR ---
PT RESTING IN BED, STATES FEELS VERY WEAK, SAT AND TALKED WITH PT ABOUT HER BLOOD PRESSURE DROPPING AND HEART RATE INCREASING, BLOOD PRESSURE HAS STABILIZED AT THIS TIME 125/82 HEART RATE 110'-120, PT UNDERSTANDS THE NEED FOR DRIPS THAT WAS PLACED ON AND BLOOD PRESSURE CUFF GOING OFF EVERY 15 MINS. SHE STATES SHE DOESNT WANT IT GOING OFF THAT MUCH THAT IT HURTS ADVISED PT THAT WE REALLY NEEDED TO KNOW SOON POSSIBLE WHEN HER BLOOD PRESSURE DROPPED TO TITRATE HER MEDICATION. SHE FINALLY AGREED TO TIMING OF BLOOD PRESSURE CUFF. STATES SHE IS SCARED SO SAT IN ROOM WITH PT TALKING WITH HER UNTIL SHE DRIFTED OFF TO SLEEP
--- NOTE | 2022-07-19 14:41 | NUR ---
PT CONTINUES TO HAVE LEVOPHED AND DOPAMINE DRIPS INFUSING TO STABILIZE BLOOD PRESSURE. WILL CONTINUE TO MONITER AND ASSESS. PT REMAINS ALERT/ORIENTED AT THIS TIME.
--- NOTE | 2022-07-19 17:09 | NUR ---
PT SITTING UP IN RECLINER PER REQUEST TO EAT SUPPER. DECREASED LEVOPHED 1 MCQ EVERY 2 MIN UNTIL BLOOD PRESSURE IS AT DESIRED BLOOD PRESSURE LEVEL.
--- NOTE | 2022-07-19 19:48 | NUR ---
pt up in chair, warm compress applied to R shoulder for c/o neck/shoulder pain, denies other needs, wants to stay in chair for now
--- NOTE | 2022-07-19 21:20 | NUR ---
pt back to bed from chair, xanax and tramadol given per pt request, dopamine being titrated down, BP remains stable
[2022-07-20] VITALS (66 sets, daily range): BP systolic 59–152; BP diastolic 40–125
--- NOTE | 2022-07-20 01:23 | NUR ---
pt awoke, felt SOB, O2 sat 98-100% on 2 Lpm NC, now up to chair and states she feels better, denies other needs
--- NOTE | 2022-07-20 04:28 | NUR ---
pt sleeping in chair, no distress, titrating pressors down
[2022-07-20 05:12] LABS: BASO% 0.2 % (0-3); EOS% 0.1 % (0-8); HEMATOCRIT 38.1 % (37.0-47.0); HEMOGLOBIN 12.3 g/dl (12.0-16.0); IMMATURE GRANULOCYTES 0.2 % (0.0-5.0); LYMPH% 17.3 % (15-41); MEAN CELL VOLUME 92.9 fL CALC (80.0-100.0); MEAN CORPUSCULAR HGB CONC 32.3 g/dL CAL (32.0-36.0); MONO% 11.3 % (2-13); NEUT# 5.84 thou/uL (2.00-7.15); NEUT% 70.9 % (42-76); RED BLOOD COUNT 4.1 mill/uL (4.20-5.60); RED CELL DISTRI WIDTH 14.8 % (11.5-15.5)
[2022-07-20 05:36] LABS: ALBUMIN 3.4 g/dL (3.2-5.0); BILIRUBIN, TOTAL 1.5 mg/dL (0.02-1.3); CREATININE 1.4 mg/dL (0.5-1.0); MAGNESIUM 1.7 mg/dL (1.6-2.3); POTASSIUM 4.2 mmol/l (3.5-5.1); TOTAL PROTEIN 7.4 g/dL (6.3-8.2)
--- NOTE | 2022-07-20 08:00 | NUR ---
Patient sitting up in chair eating breakfast. Patient given hydrocodone for pain at 0646. Patient states pain medication has not been very effective thus far , but has helped decrease pain from an 10 to an 8. Patient denies any other issues at this time. Patient would like to continue to stay in chair for now.
--- NOTE | 2022-07-20 08:48 | NUR ---
Dr. Kasi valentine at bedside. Morphine added to medicaiton regimen.
--- NOTE | 2022-07-20 10:20 | NUR ---
resting in bed on right side; no apparent distress noted; resp even and unlabored; sr pvc on the monitor; ziegler to gravity; o2 per nc; call light within reach; will continue to monitor
--- NOTE | 2022-07-20 12:00 | NUR ---
Patient sleeping in bed. No s/s of distress. Breathing even and unlabored. VSS. No issues or concerns at this time.
--- NOTE | 2022-07-20 14:00 | NUR ---
Patient sleeping in bed. No s/s of distress at this time. VSS. Breathing even and unlabored. No issues or concerns at this time. Will continue to monitor.
--- NOTE | 2022-07-20 16:00 | NUR ---
Patient sitting up in bed eating a late lunch. Family member at bedside. Patient denies any pain at this time. VSS. No issues or concerns at this time. Will continue to monitor.
--- NOTE | 2022-07-20 18:00 | NUR ---
Patient sitting up in bed. States she is having b/l leg and buttocks pain of 7. Patient provided with pain medication. Patient ate about 25% of dinner. No other issues or concerns. VSS. Breathing is even and unlabored. No s/s of distress at this time.
--- NOTE | 2022-07-20 21:31 | NUR ---
pt family just left, pt got complete bath with linen change, central line dressing changed at 1950, she is now resting in bed in sinus rhythm with PVC's on RA
--- NOTE | 2022-07-20 22:16 | NUR ---
morphine given for pt c/o bilat leg pain, she is resting in bed at this time
[2022-07-21] VITALS (55 sets, daily range): BP systolic 57–131; BP diastolic 18–97
--- NOTE | 2022-07-21 00:14 | NUR ---
pt in bed resting, denies needs, asks for pain med, reminded of schedule, VU
--- NOTE | 2022-07-21 02:03 | NUR ---
pt sleeping, no sign of distress
--- NOTE | 2022-07-21 03:22 | NUR ---
pt resting with no distress, denies needs
--- NOTE | 2022-07-21 04:31 | NUR ---
ptresting with no sign of distress, continues in sinus rhythm with PVC's
[2022-07-21 05:08] LABS: HEMATOCRIT 36.2 % (37.0-47.0); HEMOGLOBIN 11.8 g/dl (12.0-16.0); MEAN CELL VOLUME 92.1 fL CALC (80.0-100.0); MEAN CORPUSCULAR HGB CONC 32.6 g/dL CAL (32.0-36.0); RED BLOOD COUNT 3.93 mill/uL (4.20-5.60); RED CELL DISTRI WIDTH 14.7 % (11.5-15.5)
[2022-07-21 05:29] LABS: ALBUMIN 3.2 g/dL (3.2-5.0); BILIRUBIN, TOTAL 1.3 mg/dL (0.02-1.3); CREATININE 1.2 mg/dL (0.5-1.0); MAGNESIUM 1.6 mg/dL (1.6-2.3); POTASSIUM 3.5 mmol/l (3.5-5.1); TOTAL PROTEIN 6.9 g/dL (6.3-8.2)
--- NOTE | 2022-07-21 07:45 | NUR ---
pt awake in bed; no acute distress noted; pt offers no complaints; assessment completed at this time; pt alert to person and place; when asked to state current month and year, pt continually states month and year; no eye contact noted when technical document writer request; pt denies pain; no n/v noted; resp even and unlabored; lungs clear/ diminished post bases; skin color wnl; ra; hr irreg; wk pedal pulses; 2+ edema noted to ble; ble discolored/darker; sr pac/pvc on monitor; abd soft with bs present; no bm noted; ziegler to gravity draining cleat yellow urine; cath strap intact; TLC patent to RIJ; levophed gtt infusing at 1.5mcg/min; all lumens flushed with brisk blood return; no redness or edema noted at site; repositioned for comfort; plan of care/ meds explained; bed alarm set for pt safety; call light within reach; will continue to monitor
--- NOTE | 2022-07-21 08:30 | NUR ---
call received from Dr Avila; update/report provided; will continue to monitor
--- NOTE | 2022-07-21 09:30 | NUR ---
Dr Morillo present at bedside to assess pt and discuss plan of care; ziegler emptied for 600cc
--- NOTE | 2022-07-21 10:18 | NUR ---
awake in bed; offers no complaints; levophed gtt cont at 1.5mcg/min; will continue to monitor
--- NOTE | 2022-07-21 11:00 | NUR ---
pt assisted to bsc; bp noted low after activity; pt asymptomatic; manual bp confirms hypotension; levophed gtt titrated to 3mcg/min; will continue to monitor
--- NOTE | 2022-07-21 12:15 | NUR ---
awake noted sitting at the side of the bed; offers no complaints; denies pain; sr/pvc on monitor; ziegler to gravity; ziegler emptied for 400cc; soup provided; will continue to monitor
--- NOTE | 2022-07-21 14:10 | NUR ---
resting in bed on right side with eyes closed; iv intact; levophed gtt at 2mcg/min; ziegler to gravity; call light within reach; will continue to monitor
--- NOTE | 2022-07-21 16:02 | NUR ---
resting with eyes closed; no apparent distress noted; sr pvc on monitor; karlie hooker gravity; will continue to monitor
--- NOTE | 2022-07-21 16:28 | NUR ---
family present at bedside
--- NOTE | 2022-07-21 17:30 | NUR ---
awake; assisted to bsc then recliner; no bm noted; ziegler to gravity; iv intact; levophed gtt cont at 2mcg/min; sr/pvc on monitor; call light within reach
--- NOTE | 2022-07-21 17:51 | NUR ---
daughter present at bedside
[2022-07-22] VITALS (47 sets, daily range): BP systolic 74–134; BP diastolic 50–92
[2022-07-22 05:05] LABS: ANION GAP 8 (6-22 (CALC)); BUN 50 mg/dL (8-23); BUN/CREATININE RATIO 53 (12-20 (CALC)); CARBON DIOXIDE 37 mmol/l (22-30); CHLORIDE 94 mmol/l (95-108); CREATININE 0.9 mg/dL (0.5-1.0); GFR FOR AFR.AMER. > 60 ML/MIN (>=60 (CALC)); GFR OTHER RACES > 60 ML/MIN (>=60 (CALC)); MAGNESIUM 1.4 mg/dL (1.6-2.3); POTASSIUM 3.2 mmol/l (3.5-5.1); SODIUM 135 mmol/l (137-146)
--- NOTE | 2022-07-22 07:34 | NUR ---
Dr Avila called this remote mortgage underwriter; update provided; labs reviewed; has placed orders and will see pt in am
--- NOTE | 2022-07-22 08:00 | NUR ---
pt awake in bed; no apparent distress noted; pt offers no complaints; assessment completed at this time; pt alert and oriented to person and place; confused to current month and year; denies pain; no n/v noted; resp even and unlabored; lungs clear; skin color wnl; ra; hr irreg/ murmur noted; wk pedal pulses; 2+ pedal edema noted; sr pvc on monitor; abd soft with bs present with bs present; pt admits to bm last night; ziegler to gravity draining clear yellow urine; cath strap intact; TLC patent to RIJ with levophed gtt infusing at 2mcg/min without complication; no redness or edema noted at site; repositioned; am meds/labs/plan of care explained; call light within reach; will continue to monitor
--- NOTE | 2022-07-22 09:34 | NUR ---
Dr Morillo present at bedside to assess pt and discuss plan of care
--- NOTE | 2022-07-22 10:10 | NUR ---
pt awake in bed; anxious/nervous in regards to blood pressure; process description writer explained MAP/ BP parameter; sr/pvc on monitor; call light within reach; will continue to monitor
--- NOTE | 2022-07-22 11:00 | NUR ---
up to bsc as per request; no bm noted; repositioned in bed; will continue to monitor
--- NOTE | 2022-07-22 12:20 | NUR ---
awake in bed; offers no complaints; iv intact and saline locked; sr/pvc on monitor; ziegler to gravity; will continue to monitor
--- NOTE | 2022-07-22 13:26 | NUR ---
up to bsc
--- NOTE | 2022-07-22 14:13 | NUR ---
awake up to bsc; no distress noted; sr/pvc on monitor; ziegler to gravity; will continue to monitor
--- NOTE | 2022-07-22 16:00 | NUR ---
resting on right side with eyes closed; no apparent distress noted; iv intact; ziegler to gravity; sr pvc on monitor; call light within reach; will continue to monitor
--- NOTE | 2022-07-22 18:03 | NUR ---
pt awake in bed; no apparent distress noted; eating dinner; offers no complaints; iv intact; levophed remains off; sr/pvc on monitor; ziegler to gravity; repositioned for comfort; call light within reach
[2022-07-23] VITALS (26 sets, daily range): BP systolic 73–139; BP diastolic 39–115
[2022-07-23 05:10] LABS: ALBUMIN 3.3 g/dL (3.2-5.0); BUN 48 mg/dL (8-23); CARBON DIOXIDE 37 mmol/l (22-30); CHLORIDE 94 mmol/l (95-108); CREATININE 0.9 mg/dL (0.5-1.0); GFR FOR AFR.AMER. > 60 ML/MIN (>=60 (CALC)); GFR OTHER RACES > 60 ML/MIN (>=60 (CALC)); MAGNESIUM 1.7 mg/dL (1.6-2.3); POTASSIUM 3.5 mmol/l (3.5-5.1); SODIUM 136 mmol/l (137-146)
--- NOTE | 2022-07-23 07:28 | NUR ---
REPORT RECEIVED FROM GEOMAGNETICIAN - PT SEEN SLEEPING IN BED - PT HAS A TRIPLE LUMEN IJ THAT IS SALINE LOCKED AT THIS TIME - NO S/S DISTRESS SEEN - CALL LIGHT ON PT LAP, WILL MONITOR
--- NOTE | 2022-07-23 09:07 | NUR ---
Pt sitting up in bed watching tv - Pt and MD spoke about plans for DC and per PT she wants to go home and NOT have hospice, she states she doesnt like it - pt asked about ziegler removal, agreed to DC ziegler and see if she maik - RN tried to take ziegler out at this time and pt states shes too tired right now and would like to wait- i told her id be back shortly - no s/s distress - BP WNL-Call light in reach - will cont to monitor
--- NOTE | 2022-07-23 11:30 | NUR ---
Ziegler removed at 1115 per MD order - pt understands importance of urinating within 4 hours of ziegler being removed - BSC bedside - no s/s distress - pt denies any needs at this time - call light in reach - will cont to monitor
--- NOTE | 2022-07-23 13:08 | NUR ---
Pt sleeping in bed - VSS - NNO at this time - no s/s distress - call light in reach
--- NOTE | 2022-07-23 15:38 | NUR ---
Pt resting in bed - no s/s distress - NNO - call light in reach
--- NOTE | 2022-07-23 16:32 | NUR ---
Pt states shes very tired today - pt has not urinated yet from ziegler being dc'd - attempted to bladder scan pt and she was very anxious about retaining and asked me to give her a little more time to do it on her own - Oral fluids given - will re check and notify MD if needed
--- NOTE | 2022-07-23 18:20 | NUR ---
Pt urinated x 2 - DC held for tonight, will re assess tomm - NNO at this time - no s/s distress - call light in reach
--- NOTE | 2022-07-23 19:58 | NUR ---
PATIENT RESTING IN BED AT THIS TIME. FIRE CHIEF'S AIDE SHOWING S/R HR OF 89 OCCASIONAL PVC. PATIENT ALERT AND ORIENTED X 3 PATIENT STATES HER PAIN LEVEL IS A 3 GENERALIZE HOWEVER PATIENT REQUESTING NOT TO GIVE ANY PAIN OR ANXIETY MEDICATIONS AT THIS TIME. PATIETN STATES "I WANT TO TRY AND NOT TAKE ANYTHING TONIGHT" PATIENT EDUCATED ON NOT WAITING TO LONG IF HER PAIN GETS TO BE UNBARABLE. PATIENT STATED "IF I NEED IT I WONT WAIT TOO LONG" LUNG DRAKE ARE CL/DIMINISHED. IV SITE REMIANS R IJ TRIPLE LUMEN WITH BLOOD FLOW BACK. ALL LINES SALINE FLUSHED AND LOCKED AT THIS TIME. PATIENT DOES HAVE EDEMA ON BILATERAL LOWER ANKLES 1+ 02 IS OFF AT THIS TIME AND SPO2 IS CURRENTLY 100% ROOM AIR. WILL CONTINUE TO MONITOR.
--- NOTE | 2022-07-23 22:00 | NUR ---
PATIENT RESTING IN BED DENEIS ANY NEEDS AT THIS TIME. CARDIAC HEART MONITOR SHOWING S/R AND HR OF 81 O2 ON 2L AND SPO2 IS 100% AT THIS TIME BP IS 100/82. SIDERAILS ARE UP CALL LIGHT IS WIHTIN REACH.
[2022-07-24] VITALS (23 sets, daily range): BP systolic 38–123; BP diastolic 16–101
--- NOTE | 2022-07-24 00:20 | NUR ---
PATIENT ASSITED UP TO BEDSIDE COMMODE AT THIS TIME AND ASSISTED BACK TO BED. CARDIAC HEART MONITOR READING 84 AT THIS TIME. PATIENT STATES HER PAIN IS A "3" AND REFUSING ANY MEDICATION AT THIS TIME. SIDERAILS ARE UP CALL LIGHT IS WITHIN REACH.
--- NOTE | 2022-07-24 03:47 | NUR ---
PATIENT RESTING IN BED AT THIS TIME IS NO COMPLAINTS OF PAIN OR ANY NEEDS. SALESPERSON RECREATIONAL VEHICLES IS READING SR AND HR OF 80. PATIENT IS ON 2L OF O2 AND SPO2 IS 100% AT THIS TIME SIDERAILS ARE UP CALL LIGHT WITHIN REACH.
[2022-07-24 05:38] LABS: ANION GAP 10 (6-22 (CALC)); BUN 53 mg/dL (8-23); BUN/CREATININE RATIO 51 (12-20 (CALC)); CARBON DIOXIDE 35 mmol/l (22-30); CHLORIDE 95 mmol/l (95-108); GFR FOR AFR.AMER. > 60 ML/MIN (>=60 (CALC)); GFR OTHER RACES 56 ML/MIN (>=60 (CALC)); MAGNESIUM 1.8 mg/dL (1.6-2.3); POTASSIUM 3.6 mmol/l (3.5-5.1); SODIUM 136 mmol/l (137-146)
--- NOTE | 2022-07-24 06:00 | NUR ---
PATIENT ASSISTED TO BEDSIDE COMMODE PATIENT VOIDED AT THIS TIME. PATIENT ASSISTED BACK TO BED AT THIS TIME. SIDERAILS ARE UP X 2 CALL LIGHT WITHIN REACH. ACCOUNTS RECEIVABLE ANALYST READING S/R WITH PVC'S AND HR OF 84.
--- NOTE | 2022-07-24 07:30 | NUR ---
REPORT RECEIVED FROM ORACLE ARCHITECT - PT SEEN SLEEPING IN BED - VSS - NO S/S DISTRESS NOTED - CALL LIGHT IN REACH - WILL MONITOR
[2022-07-24] MEDS ORDERED: LOPRESSOR25 MG PO (09:27)
[2022-07-24] MEDS ORDERED: ALLOPURINOL100 MG PO (09:28)
[2022-07-24] MEDS ORDERED: PREDNISONE10 MG PO (09:28)
--- NOTE | 2022-07-24 09:43 | NUR ---
Pt c/o stomach pain and asked for morphine, rated pain 7/10 - medicated per MD order - pt VSS - no other needs at this time - call light in reach
--- NOTE | 2022-07-24 11:42 | NUR ---
Pt resting in bed - no needs at this time - NNO - VSS - no s/s distres- call light in reach
--- NOTE | 2022-07-24 13:32 | NUR ---
pt sleeping - vss - NNO - call light in reach
--- NOTE | 2022-07-24 15:12 | NUR ---
Pt up to BSC - VSS - denies any needs at this time - awaiting oxygen authorization for DC - call light in reach
--- NOTE | 2022-07-24 17:31 | NUR ---
Helped pt back in bed - No needs at this time- no s/s distress - no s/s distress - call light in reach
--- NOTE | 2022-07-24 20:04 | NUR ---
PATIENT RESTING IN BED AT THIS TIME ALERT AND ORIENTED X 3 TELE READING SINUS RHYTHM WITH PVC'S AND HR IS CURRENTLY 84. PATIENT STATED PAIN IS 2 GENERALIZED AT THIS TIME AND DENEIS NEED FOR PAIN MEDICATION. SPO2 ON 2L IS CURRENTLY 99%. SIDERAILS ARE UP X 2 CALL LIGHT IS WITHIN REACH. LUNG FIELD ARE CLEAR BOWEL SOUNDS ARE PRESENT IN ALL FOUR QUADS.
--- NOTE | 2022-07-24 22:05 | NUR ---
PATIENT RESTING IN BED AT THIS TIME SIDERAILS ARE UP X 2 02 ON AT 2L SPO2 IS 90% INSURANCE PLAN SPECIALIST SHOWING SR AT 78. NO NEEDS AT THIS TIME.
[2022-07-25] VITALS (30 sets, daily range): BP systolic 26–140; BP diastolic 10–119
--- NOTE | 2022-07-25 00:07 | NUR ---
PATIENT RESTING IN BED DENIES ANY NEEDS AT THIS TIME SIDERAILS ARE UP CALL LIGHT WITHIN REACH.
--- NOTE | 2022-07-25 02:10 | NUR ---
PATIENT RESTING IN BED AT THIS TIME WITH EYES CLOSED AND RESPIRATIONS EASY AND UNLABORED ON 2L OF O2 AND SPO2 IS CURRENTLY 85
--- NOTE | 2022-07-25 02:42 | NUR ---
PATIENT REQUESTING MORPHINE FOR PAIN AND BENADRYL FOR ITCHING AT THIS TIME. 2MG IV MORPHINE GIVEN FOR PAIN OF 5 OUT OF 0-10 AND 50MG OF BENADRYL IV GIVEN FOR ITCHING. SIDERAILS ARE UP X 2 CALL LIGHT IS WITHIN REACH.
--- NOTE | 2022-07-25 04:16 | NUR ---
PATIENT SITTING UP IN BED AT THIS TIME. PATIENT STATED PAIN LEVEL IS A 2 AT THIS TIME. PATIENT DENIES ANY NEEDS. PATIENT REMAINS ON 02 AT 2 LITERS AND SPO2 IS CURRENTLY 94%. BP IS INCORRECTLY DOCUMENTION VIA MACHINE AT THIS TIME. MANUAL BP SHOWS 103/77 WILL CONTINUE TO MONITOR.
--- NOTE | 2022-07-25 06:16 | NUR ---
PATIENT RESTING IN BED AT THIS TIME. DENIES ANY NEEDS SIDERAILS ARE UP X 2 CALL LIGHT WITH IN REACH. WILL CONTINUE TO MONIOTOR.
[2022-07-25 06:20] LABS: CREATININE 1.2 mg/dL (0.5-1.0); MAGNESIUM 1.9 mg/dL (1.6-2.3); POTASSIUM 4.2 mmol/l (3.5-5.1)
--- NOTE | 2022-07-25 06:57 | NUR ---
PT REPORT RECEIVED FROM DIRECTOR ATHLETIC, AWAKE AND ALERT/
--- NOTE | 2022-07-25 07:46 | NUR ---
PT STANDING UP TO BATHE SELF, REFUSING HELP, ASKED STAFF TO LEAVE ROOM AND SHE WILL DO IT HERSELF.
--- NOTE | 2022-07-25 08:54 | NUR ---
PT RESTING QUIETLY IN BED AT THIS TIME. VITAL SIGNS STABLE
--- NOTE | 2022-07-25 09:40 | NUR ---
O2 SAT ON 4L IS 96%.
--- NOTE | 2022-07-25 15:45 | NUR ---
PT SITTING ON BEDSIDE COMMODE, STATES SHE IS TIRED OF SITTING IN BED, WANTS TO SIT UP. ASKED ABOUT IF I HAD HEARD ANYTHING ABOUT HER BEING ABLE TO GO HOME, INFORMED PT THAT I HAD SPOKEN TO CASE MANAGEMENT AND WE WERE WAITING TO SEE WHEN HER OXYGEN COULD BE SET UP AND THAT HAD NOT HEARD FROM THEM AT THIS TIME.
--- NOTE | 2022-07-25 19:10 | NUR ---
pt sitting up in bed, states she is "depressed" today due to extended hospital stay, states she "wants to go home"
[2022-07-26] VITALS (26 sets, daily range): BP systolic 71–106; BP diastolic 33–77
--- NOTE | 2022-07-26 00:02 | NUR ---
Patient up to bedside commode, declined staff assistance, allowed sheet writer to help her back to bed. Patient continues to sit at side of bed states she will call sheet writer when ready to lay back down. Bed is in lowest position, breaks on and call mixon within reach.
--- NOTE | 2022-07-26 03:19 | NUR ---
Patient up to commode, helped back to bed. Bed in lowest setting, locked, call mixon within reach.
[2022-07-26 04:13] LABS: CREATININE 1.3 mg/dL (0.5-1.0); POTASSIUM 4.6 mmol/l (3.5-5.1)
--- NOTE | 2022-07-26 07:25 | NUR ---
pt report received from shift foreman. pt resting quietly on bed, vital signs remain the same. states she is thirsty but not hungry at this time.
--- NOTE | 2022-07-26 09:45 | NUR ---
O2 SAT ON 4L NC IS 100%.
--- NOTE | 2022-07-26 14:37 | NUR ---
the company came with pts oxygen for home for discharge. daughter notified, will be here later this evening for sisal picker.
--- NOTE | 2022-07-26 16:31 | NUR ---
pt resting quietly on bed, watching tv, no complaints at this time, advised we would be waiting for her daughter to come for discharge.
== END 2022-07-26 20:20 | disposition home health service (06) | DRG 291 ==
LOC: ED 06:52 → ED-I 09:27 → ED 09:56 → ICU 09:57
PROVIDERS: Emergency Medicine; Internal Medicine; Internal Medicine Nephrology; Nurse Practitioner Family; ADMIT Internal Medicine; ATTEND Internal Medicine
PROC: 3E033XZ Introduction of Vasopressor into Peripheral Vein, Percutaneous Approach (ICD-10-PCS; principal; 2022-07-10)
PROC: 0T9B70Z Drainage of Bladder with Drainage Device, Via Natural or Artificial Opening (ICD-10-PCS; 2022-07-10)
PROC: 05HM33Z Insertion of Infusion Device into Right Internal Jugular Vein, Percutaneous Approach (ICD-10-PCS; 2022-07-13)
PROC: 0W9G3ZZ Drainage of Peritoneal Cavity, Percutaneous Approach (ICD-10-PCS; 2022-07-17)
DX: I13.0 Hypertensive heart and chronic kidney disease with heart failure and stage 1 through stage 4 chronic kidney disease, or unspecified chronic kidney disease (principal); I49.01 Ventricular fibrillation; I50.23 Acute on chronic systolic (congestive) heart failure; R57.0 Cardiogenic shock; J96.21 Acute and chronic respiratory failure with hypoxia; R18.8 Other ascites; N17.9 Acute kidney failure, unspecified; E87.1 Hypo-osmolality and hyponatremia; I47.20 Ventricular tachycardia, unspecified; N18.9 Chronic kidney disease, unspecified; I42.0 Dilated cardiomyopathy; E87.6 Hypokalemia; I48.91 Unspecified atrial fibrillation; I34.0 Nonrheumatic mitral (valve) insufficiency; I27.20 Pulmonary hypertension, unspecified; K74.60 Unspecified cirrhosis of liver; K59.09 Other constipation; D64.9 Anemia, unspecified; K21.9 Gastro-esophageal reflux disease without esophagitis; F32.A Depression, unspecified; F41.1 Generalized anxiety disorder; E83.42 Hypomagnesemia; G47.33 Obstructive sleep apnea (adult) (pediatric); I95.1 Orthostatic hypotension; E78.5 Hyperlipidemia, unspecified; G89.29 Other chronic pain; M10.072 Idiopathic gout, left ankle and foot; M10.071 Idiopathic gout, right ankle and foot; T50.1X6A Underdosing of loop [high-ceiling] diuretics, initial encounter; T50.0X6A Underdosing of mineralocorticoids and their antagonists, initial encounter; T46.3X5A Adverse effect of coronary vasodilators, initial encounter; T44.4X6A Underdosing of predominantly alpha-adrenoreceptor agonists, initial encounter; Z91.128 Patient's intentional underdosing of medication regimen for other reason; Z66 Do not resuscitate; Z95.810 Presence of automatic (implantable) cardiac defibrillator; Z86.73 Personal history of transient ischemic attack (TIA), and cerebral infarction without residual deficits; Z79.01 Long term (current) use of anticoagulants
CPT/HCPCS: J1250; J2260; J3475; Q3014

== ENCOUNTER 2022-08-03 11:54 | Inpatient (IN) | payer OTHER ==
[~2022-08-03] VITALS: Ht 175.3 cm; Wt 71.0 kg
[2022-08-03] VITALS (35 sets, daily range): BP systolic 80–167; BP diastolic 45–131
[~2022-08-03 11:54] MED LIST changes: +ALLOPURINOL100 MG PO; +PREDNISONE10 MG PO
[2022-08-03 13:09] LABS: BASO% 0.5 % (0-3); EOS% 0.6 % (0-8); HEMATOCRIT 38.9 % (37.0-47.0); HEMOGLOBIN 12.6 g/dl (12.0-16.0); IMMATURE GRANULOCYTES 0.2 % (0.0-5.0); LYMPH% 16.9 % (15-41); MEAN CELL VOLUME 90.7 fL CALC (80.0-100.0); MEAN CORPUSCULAR HGB 29.4 pG CALC (26.0-32.0); MEAN CORPUSCULAR HGB CONC 32.4 g/dL CAL (32.0-36.0); MONO% 11.8 % (2-13); NEUT# 4.39 thou/uL (2.00-7.15); RED BLOOD COUNT 4.29 mill/uL (4.20-5.60); RED CELL DISTRI WIDTH 15.6 % (11.5-15.5)
[2022-08-03 13:21] LABS: ALBUMIN 3.9 g/dL (3.2-5.0); CHLORIDE 91 mmol/l (95-108); GFR FOR AFR.AMER. 30 ML/MIN (>=60 (CALC)); GFR OTHER RACES 25 ML/MIN (>=60 (CALC)); LIPASE 108 u/l (23-300); POTASSIUM 3.7 mmol/l (3.5-5.1); SGOT/AST 49 u/l (9-36)
[2022-08-03 13:28] LABS: ALKALINE PHOSPHATASE 219 u/l (38-126); ANION GAP 15 (6-22 (CALC)); BUN 80 mg/dL (8-23); BUN/CREATININE RATIO 40 (12-20 (CALC)); CARBON DIOXIDE 26 mmol/l (22-30); SODIUM 128 mmol/l (137-146); TOTAL PROTEIN 8.3 g/dL (6.3-8.2)
[2022-08-04] VITALS (24 sets, daily range): BP systolic 74–104; BP diastolic 33–80
[2022-08-04 05:34] LABS: BASO% 0.3 % (0-3); EOS% 0.9 % (0-8); HEMATOCRIT 37.6 % (37.0-47.0); HEMOGLOBIN 12.3 g/dl (12.0-16.0); IMMATURE GRANULOCYTES 0.3 % (0.0-5.0); LYMPH% 15.4 % (15-41); MEAN CELL VOLUME 90.6 fL CALC (80.0-100.0); MEAN CORPUSCULAR HGB 29.6 pG CALC (26.0-32.0); MEAN CORPUSCULAR HGB CONC 32.7 g/dL CAL (32.0-36.0); MONO% 11.5 % (2-13); NEUT# 4.18 thou/uL (2.00-7.15); NEUT% 71.6 % (42-76); RED BLOOD COUNT 4.15 mill/uL (4.20-5.60); RED CELL DISTRI WIDTH 15.5 % (11.5-15.5)
[2022-08-04 05:52] LABS: CREATININE 1.6 mg/dL (0.5-1.0); POTASSIUM 3.9 mmol/l (3.5-5.1)
[2022-08-04 20:25] LABS: URINE BILIRUBIN - DIPSTICK NEGATIVE (NEGATIVE); URINE BLOOD DIPSTICK MODERATE (NEGATIVE); URINE CLARITY CLEAR; URINE COLOR YELLOW; URINE GLUCOSE - DIPSTICK NEGATIVE (NEGATIVE); URINE KETONE NEGATIVE (NEGATIVE); URINE LEUK ESTERASE SMALL (Negative); URINE NITRITE - DIPSTICK NEGATIVE (Negative); URINE PH 5.5 (4.5-8.0); URINE PROTEIN - DIPSTICK NEGATIVE (NEG-TRACE); URINE UROBILINOGEN - DIPSTICK 0.2 E.U./dL (0.2)
[2022-08-04 20:44] LABS: URINE SQUAMOUS EPITHELIAL CELL FEW EPI/hpf (0-FEW)
[2022-08-05] VITALS (24 sets, daily range): BP systolic 37–104; BP diastolic 22–62
[2022-08-05 05:43] LABS: BASO% 0.3 % (0-3); EOS% 0.7 % (0-8); HEMATOCRIT 34.7 % (37.0-47.0); HEMOGLOBIN 11.5 g/dl (12.0-16.0); IMMATURE GRANULOCYTES 0.2 % (0.0-5.0); LYMPH% 11.3 % (15-41); MEAN CELL VOLUME 89.9 fL CALC (80.0-100.0); MEAN CORPUSCULAR HGB 29.8 pG CALC (26.0-32.0); MEAN CORPUSCULAR HGB CONC 33.1 g/dL CAL (32.0-36.0); NEUT# 4.59 thou/uL (2.00-7.15); NEUT% 75.5 % (42-76); RED BLOOD COUNT 3.86 mill/uL (4.20-5.60); RED CELL DISTRI WIDTH 15.4 % (11.5-15.5)
[2022-08-05 06:18] LABS: CREATININE 1.3 mg/dL (0.5-1.0); MAGNESIUM 1.7 mg/dL (1.6-2.3)
[2022-08-05 06:24] LABS: POTASSIUM 2.7 mmol/l (3.5-5.1)
[2022-08-05 17:46] LABS: CREATININE 1.2 mg/dL (0.5-1.0)
[2022-08-05 17:54] LABS: POTASSIUM 3.8 mmol/l (3.5-5.1)
[2022-08-06] VITALS (7 sets, daily range): BP systolic 86–106; BP diastolic 44–87
[2022-08-06 05:17] LABS: BASO% 0.6 % (0-3); EOS% 0.9 % (0-8); HEMATOCRIT 35.6 % (37.0-47.0); HEMOGLOBIN 11.6 g/dl (12.0-16.0); IMMATURE GRANULOCYTES 0.4 % (0.0-5.0); LYMPH% 16.9 % (15-41); MEAN CELL VOLUME 90.6 fL CALC (80.0-100.0); MEAN CORPUSCULAR HGB 29.5 pG CALC (26.0-32.0); MEAN CORPUSCULAR HGB CONC 32.6 g/dL CAL (32.0-36.0); MONO% 12.4 % (2-13); NEUT# 3.66 thou/uL (2.00-7.15); NEUT% 68.8 % (42-76); RED BLOOD COUNT 3.93 mill/uL (4.20-5.60); RED CELL DISTRI WIDTH 15.6 % (11.5-15.5)
[2022-08-06 05:30] LABS: CREATININE 1.5 mg/dL (0.5-1.0); MAGNESIUM 1.7 mg/dL (1.6-2.3); POTASSIUM 3.8 mmol/l (3.5-5.1)
[2022-08-07] VITALS (7 sets, daily range): BP systolic 79–96; BP diastolic 34–74
[2022-08-07 05:37] LABS: HEMATOCRIT 41.3 % (37.0-47.0); HEMOGLOBIN 12.9 g/dl (12.0-16.0); MEAN CELL VOLUME 92.2 fL CALC (80.0-100.0); MEAN CORPUSCULAR HGB 28.8 pG CALC (26.0-32.0); MEAN CORPUSCULAR HGB CONC 31.2 g/dL CAL (32.0-36.0); RED BLOOD COUNT 4.48 mill/uL (4.20-5.60); RED CELL DISTRI WIDTH 16.2 % (11.5-15.5)
[2022-08-07 05:54] LABS: ALBUMIN 3.8 g/dL (3.2-5.0); BILIRUBIN, TOTAL 2.3 mg/dL (0.02-1.3); MAGNESIUM 1.9 mg/dL (1.6-2.3); POTASSIUM 3.9 mmol/l (3.5-5.1); TOTAL PROTEIN 8.2 g/dL (6.3-8.2)
[2022-08-08 00:43] VITALS: BP 81/56
[2022-08-08 04:47] VITALS: BP 74/44
[2022-08-08 05:33] VITALS: BP 91/60
[2022-08-08 06:17] LABS: HEMOGLOBIN 11.4 g/dl (12.0-16.0); MEAN CELL VOLUME 89.8 fL CALC (80.0-100.0); MEAN CORPUSCULAR HGB 29.7 pG CALC (26.0-32.0); RED BLOOD COUNT 3.84 mill/uL (4.20-5.60); RED CELL DISTRI WIDTH 15.9 % (11.5-15.5)
[2022-08-08 06:19] LABS: HEMATOCRIT 34.5 % (37.0-47.0)
[2022-08-08 06:20] LABS: ALBUMIN 3.4 g/dL (3.2-5.0); BILIRUBIN, TOTAL 2.2 mg/dL (0.02-1.3); MAGNESIUM 2.2 mg/dL (1.6-2.3); POTASSIUM 4.4 mmol/l (3.5-5.1); TOTAL PROTEIN 7.3 g/dL (6.3-8.2)
[2022-08-08 07:02] VITALS: BP 103/61
[2022-08-08 11:06] VITALS: BP 83/54
[2022-08-08] MEDS ORDERED: MIDODRINE5 MG PO (12:46)
== END 2022-08-08 18:40 | DRG 291 ==
LOC: ED 11:54 → ED-I 15:30 → ED 16:22 → ICU 16:23 → MS2 20:04
PROVIDERS: Emergency Medicine; Internal Medicine; ADMIT Internal Medicine; ATTEND Internal Medicine
PROC: 0T9B70Z Drainage of Bladder with Drainage Device, Via Natural or Artificial Opening (ICD-10-PCS; principal; 2022-08-04)
DX: I13.0 Hypertensive heart and chronic kidney disease with heart failure and stage 1 through stage 4 chronic kidney disease, or unspecified chronic kidney disease (principal); I50.23 Acute on chronic systolic (congestive) heart failure; J96.21 Acute and chronic respiratory failure with hypoxia; E87.1 Hypo-osmolality and hyponatremia; N17.9 Acute kidney failure, unspecified; N18.9 Chronic kidney disease, unspecified; I42.8 Other cardiomyopathies; I95.9 Hypotension, unspecified; I48.91 Unspecified atrial fibrillation; E83.42 Hypomagnesemia; E87.6 Hypokalemia; G89.4 Chronic pain syndrome; K59.09 Other constipation; F41.1 Generalized anxiety disorder; F32.A Depression, unspecified; K21.9 Gastro-esophageal reflux disease without esophagitis; K74.60 Unspecified cirrhosis of liver; Z95.810 Presence of automatic (implantable) cardiac defibrillator; Z86.73 Personal history of transient ischemic attack (TIA), and cerebral infarction without residual deficits; Z66 Do not resuscitate; Z79.01 Long term (current) use of anticoagulants
CPT/HCPCS: G0378; J3475

== ENCOUNTER 2022-08-16 04:33 | Emergency (ER) | payer OTHER ==
[~2022-08-16] VITALS: Ht 175.3 cm; Wt 75.0 kg
[2022-08-16 05:19] LABS: BASO% 0.4 % (0-3); EOS% 0.6 % (0-8); HEMATOCRIT 39.6 % (37.0-47.0); HEMOGLOBIN 12.5 g/dl (12.0-16.0); IMMATURE GRANULOCYTES 0.4 % (0.0-5.0); LYMPH% 19.6 % (15-41); MEAN CELL VOLUME 89.8 fL CALC (80.0-100.0); MEAN CORPUSCULAR HGB 28.3 pG CALC (26.0-32.0); MEAN CORPUSCULAR HGB CONC 31.6 g/dL CAL (32.0-36.0); MONO% 10.1 % (2-13); NEUT# 3.34 thou/uL (2.00-7.15); NEUT% 68.9 % (42-76); RED BLOOD COUNT 4.41 mill/uL (4.20-5.60); RED CELL DISTRI WIDTH 16.7 % (11.5-15.5)
[2022-08-16 05:34] LABS: ALBUMIN 3.7 g/dL (3.2-5.0); ALKALINE PHOSPHATASE 202 u/l (38-126); ANION GAP 12 (6-22 (CALC)); BILIRUBIN, TOTAL 2.6 mg/dL (0.02-1.3); BUN 70 mg/dL (8-23); BUN/CREATININE RATIO 42 (12-20 (CALC)); CARBON DIOXIDE 39 mmol/l (22-30); CHLORIDE 82 mmol/l (95-108); CREATININE 1.7 mg/dL (0.5-1.0); GFR FOR AFR.AMER. 37 ML/MIN (>=60 (CALC)); GFR OTHER RACES 30 ML/MIN (>=60 (CALC)); POTASSIUM 2.5 mmol/l (3.5-5.1); SGOT/AST 33 u/l (9-36); SODIUM 130 mmol/l (137-146)
[2022-08-16] MEDS ORDERED: POTASSIUM CHLO20 ME1 PO (06:33)
[2022-08-16 07:00] VITALS: BP 86/49
[2022-08-16 07:15] VITALS: BP 83/51
== END 2022-08-16 09:35 | disposition home or self-care (01) | DRG 313 ==
LOC: ED 04:33
PROVIDERS: Family Medicine
DX: R07.9 Chest pain, unspecified (principal); N17.9 Acute kidney failure, unspecified; I42.9 Cardiomyopathy, unspecified; E87.6 Hypokalemia; I11.0 Hypertensive heart disease with heart failure; I50.9 Heart failure, unspecified; K21.9 Gastro-esophageal reflux disease without esophagitis; Z95.810 Presence of automatic (implantable) cardiac defibrillator; Z86.73 Personal history of transient ischemic attack (TIA), and cerebral infarction without residual deficits

== ENCOUNTER 2022-08-20 02:43 | Inpatient (IN) | payer OTHER ==
[~2022-08-20] VITALS: Ht 175.3 cm; Wt 66.0 kg
[2022-08-20] VITALS (18 sets, daily range): BP systolic 60–98; BP diastolic 14–74
[~2022-08-20 02:43] MED LIST changes: +POTASSIUM CHLO20 ME1 PO
--- NOTE | 2022-08-20 02:43 | NUR ---
IN ROUTE PT BAGGED, THEN CPR AND ROSC RETURNED.LORE TUBE PLACED BY EMS. ON ARRIVAL. PT WAS BAEING BAGGED, TUBE IN PLACE, PULSE CHECK REVEALED A WEAK CAROTID PULSE, SLOW SHALLOW BREATHS NOTED. PREPARING FOR INTUBATION WHILE GETTING THE FAMILY BACK.
--- NOTE | 2022-08-20 02:45 | NUR ---
AMBERLY WALTERS TALKING WITH FAMILY TO TALK ABOUT PATIENTS PREVIOUS WISHES TO BE A DNR.
--- NOTE | 2022-08-20 02:48 | NUR ---
LORE TUBE REMOVED AND ET TUBE PLACED BY DR MATHIS.RT AT BEDSIDE ASSISTING
--- NOTE | 2022-08-20 02:50 | NUR ---
FAMILY CONFIRMED THAT HER WISHES WERE TO BE A DNR AND IT IS ON FILE. NO TUBE . DR MATHIS REMOVED THE ET TUBE. PT SUCTIONED AND CLEANED UP AND KEPT ON ORTHOPAEDIC TECHNOLOGIST. FAMILY LEFT AT BEDSIDE TO BE WITH THE PATIENT.
--- NOTE | 2022-08-20 06:31 | NUR ---
Pt arrived to unit via stretcher unresponsive with mother at bedside - pt moved to bed - settled mother in - unable to do a admission as pt is unresponsive and mother unable to answer all questions - call light in reach
--- NOTE | 2022-08-20 07:00 | NUR ---
Patient report is received by Jaclyn WALTERS. Patient unresponsive.Mother at bed side. Vital signs are monitored, comfort is provided. Safety and fall precautions in place. Call light within in reach.
--- NOTE | 2022-08-20 12:20 | NUR ---
PATIENT STABLE AT THIS TIME RESTING IN BED. FAMILY IN THE ROOM. COMFORT CARE IS PROVIDED. SAFETY AND FALL PRECAUTIONS IN PLACE CALL LIGHT WITHIN IN REACH.
--- NOTE | 2022-08-20 16:30 | NUR ---
PER SELENA RAIN. ORDERS FOR TURN OFF/DEACTIVATION OF AICD. CONTINUE MONITORING PT FOR CHANGES.
--- NOTE | 2022-08-20 16:43 | NUR ---
PATIENT STABLE AT THE TIME OF THIS NOTE STILL UNRESPONSIVE. COMFORT AND COMFORT IS PROVIDED. DR. COHEN PASSES VISIT ISSUES ORDER WHICH IS FOLLOWED.
--- NOTE | 2022-08-20 20:00 | NUR ---
PATIENT RESTING IN BED WITH O2 VIA NASAL CANNULA IN PLACE FOR COMFORT-O2 SATS ARE 98-99%. MULTIPLE FAMILY MEMBERS AT BEDSIDE. PATIENT IS COMFORT CARE AT THIS TIME AND DNR. PATIENT RESPONDS TO SPEECH BY OPENING HER EYE HWFT-BAY-PUMGRT AT THIS TIME. ORAL HYGEINE PROVIDED WITH TOOTHETTES. TAI CATH PATENT AND DRAINING ONLY SMALL AMT OF DARK SARAH URINE. TAI CATH CARE PROVIDED. TELE MONITOR IN PLACE.PATIENT TURNED AND REPOSITIONED ON RIGHT SIDE. SUPPORTED BY PILLOWS. WILL CONT TO MONITOR.
--- NOTE | 2022-08-21 00:10 | NUR ---
PATIENT RESTING IN BED WITH FAMILY AT BEDSIDE. O2 IN PLACE AT 2LPM. FAMILY IS REQUESTING PATIENT BE SUCTIONED-ATTEMPT WAS MADE WITH ONLY SMALL AMT OF SEREATIONS CLEARED. PATIENT BITING ON YANKAR WHEN ATTEMPTING TO SUCTION. OPENING EYES BUT NOT VERBAL AT THIS TIME. TURNED AND REPOSITONED. WILL CONT TO MONITOR
--- NOTE | 2022-08-21 00:51 | NUR ---
PATIENT POSITIONED ON LEFT SIDE-FAMILY REMAINS AT BEDSIDE. PATIENT IS RESTLESS AND MOANING AT TIMES. MEDICATED WITH MORPHINE 2MG IVP VIA RIGHT HAND SITE. SITE IS HEALTHY WITH GOOD BLOOD RETURN. WILL CONT TO MONITOR.
[2022-08-21 04:14] VITALS: BP 119/94
--- NOTE | 2022-08-21 05:30 | NUR ---
PATIENT POSITIONED ON LEFT SIDE WITH O2 VIA NASAL CANNULA IN PLACE. TELE MONITOR IN PLACE. TAI PATENT AND DRAINING SMALL AMT OF DARK SARAH CLOUDY URINE. CELINA LE WITH SWELLING. PATIENT TURNED AND REPOSITONED. PATIENT WITH EYES OPEN AT THIS TIME. PATIENT ABLE TO SPEAK IN SOFT VOICE. PROVIDED WITH ORAL HYGEINE WITH TOOTHETTES. SUCKING ON ICE CHIPS FOR COMFORT. MAONING WHEN TURNED AND MEDICATED WITH MORPHINE 2MG IVP VIA RIGHT HAND IV SITE. REMAINS HEALTHY AT THIS TIME. FAMILY-DAUGHER AND MOTHER AT BEDSIDE. WILL CONT TO MONITOR.
--- NOTE | 2022-08-21 07:00 | NUR ---
RECEIVE REPORT FROM LOULOU WALTERS.
[2022-08-21 07:10] VITALS: BP 87/52
--- NOTE | 2022-08-21 08:00 | NUR ---
PATIENT RESTING IN BED ALERT AND ORIENTED AT THIS TIME. PATIENT CAN'T TALK BUT FOLLOW VERBAL INSTRUCTIONS. FAMILY MEMBERS IN THE ROOM. ASSESSMENTE HEAD-TO TOE COMPLETE. NO DISTRESS OBSERVE AT THIS TIME. COMFORT CARE IS PROVIDE. SAFETY AND FALL PRECAUTIONS IN PLACE. CALL LIGHT WITHIN IN REACH.
[2022-08-21 11:00] VITALS: BP 75/31
[2022-08-21 14:00] VITALS: BP 91/37
--- NOTE | 2022-08-21 16:34 | NUR ---
PATIENT RESTING IN BED STABLE AT THIS TIME. ANY PAIN OR DISCOMFOR. SAFETY AND FALL PRECAUTIONS IN PLACE. CALL LIGHT WITHIN IN REACH.
[2022-08-21 18:37] VITALS: BP 95/61
[2022-08-21 21:27] VITALS: BP 90/45
--- NOTE | 2022-08-21 22:51 | NUR ---
PT RESTING FAMILY AT BEDSIDE
--- NOTE | 2022-08-22 01:17 | NUR ---
PT WAS SUCTION DUE TO MUCUS SECRETION, DAUGHTER AT BED SIDE
[2022-08-22 04:25] VITALS: BP 81/48
--- NOTE | 2022-08-22 06:28 | NUR ---
PT SLEEPING DAUGHTER AT BED SIDE, CALL LIGHT WITHIN REACHED WILL CONT TO MONITOR
[2022-08-22 06:58] VITALS: BP 89/49
--- NOTE | 2022-08-22 07:00 | NUR ---
RECEIVE REPORT FROM MARLENY WALTERS.
--- NOTE | 2022-08-22 08:00 | NUR ---
PATIENT ALERT AND ORIENTED X3. PATIENT DOES NOT SPEAK BUT NODDES OR SHAKES HEAD TO ALL QUESTIONS. NO DISTRESS OR PAIN OBSERVE AT THIS TIME. ASSESSMENT HEAD-TO TOE COMPLETE. PATIENT PLEASANT RESTING IN BED. TELE MONITORING IN PLACE. FAMILY (DAUGHTER) IS EDUCATED ABOUD MEDICATIONS AND NURSING PLAN FOR TODAY. PT REFER UNDERSTAND. SAFETY AND FALL PRECAUTIONS IN PLACE. CALL LIGHT WITHIN IN REACH.
[2022-08-22 11:10] VITALS: BP 93/58
--- NOTE | 2022-08-22 12:00 | NUR ---
Patient resting in bed stable a this time. family member at bed side. speech therapy evaluated patient recommends pureed diet.
[2022-08-22 13:31] LABS: BASO% 0.1 % (0-3); EOS% 0.1 % (0-8); HEMATOCRIT 36.5 % (37.0-47.0); HEMOGLOBIN 11.5 g/dl (12.0-16.0); IMMATURE GRANULOCYTES 0.4 % (0.0-5.0); LYMPH% 7.1 % (15-41); MEAN CELL VOLUME 90.3 fL CALC (80.0-100.0); MEAN CORPUSCULAR HGB 28.5 pG CALC (26.0-32.0); MEAN CORPUSCULAR HGB CONC 31.5 g/dL CAL (32.0-36.0); MONO% 13.3 % (2-13); NEUT# 5.35 thou/uL (2.00-7.15); RED BLOOD COUNT 4.04 mill/uL (4.20-5.60); RED CELL DISTRI WIDTH 17.9 % (11.5-15.5)
[2022-08-22 13:44] LABS: ALBUMIN 3.2 g/dL (3.2-5.0); CREATININE 1.2 mg/dL (0.5-1.0); MAGNESIUM 1.9 mg/dL (1.6-2.3); POTASSIUM 2.7 mmol/l (3.5-5.1); TOTAL PROTEIN 7.4 g/dL (6.3-8.2)
[2022-08-22 13:45] LABS: BILIRUBIN, TOTAL 4.6 mg/dL (0.02-1.3)
--- NOTE | 2022-08-22 17:20 | NUR ---
PATIENT REFERS PAIN WHEN TRYING TO SWALLOW WHICH DID NOT ALLOW THEM TO TAKE THE MEDICINES AT 5:30 PM
[2022-08-22 20:01] VITALS: BP 88/45
--- NOTE | 2022-08-22 22:05 | NUR ---
PAGE DAUGHTER REQUESTED LIDOCAINE PT SEEM IN PAIN RUBBING HER THROAT
[2022-08-22 23:59] VITALS: BP 88/62
[2022-08-23] VITALS (8 sets, daily range): BP systolic 86–142; BP diastolic 41–120
--- NOTE | 2022-08-23 01:18 | NUR ---
ATIVAN 0.55 MG IV WAS GIVEN, PT TOLRATE MED WELL, DAUGHTER AT BED SIDE, WILL CONT TO MONITOR
--- NOTE | 2022-08-23 05:58 | NUR ---
PT WAS SUCTION AND DAUGHTER AT BED SIDE
--- NOTE | 2022-08-23 19:30 | NUR ---
RECEIVED REPORT FROM DAYSIAFT NURSE. PT NOTED LAYING FOWLERS IN BED. TAI NOTED WITH OUTPUT. NASAL CANNULA IN PLACE ON 4L O2. DAUGHTER AT BEDSIDE. PT IS RESTLESS, NON VERBAL. NO S/S OF DISTRESS. HEEL PROTECTORS IN PLACE. REPOSITIONED PT ONTO LFT SIDE. CALL LIGHT WITHIN REACH AND SAFETY PRECAUTIONS IN PLACE.
[2022-08-24] VITALS (7 sets, daily range): BP systolic 74–107; BP diastolic 48–70
--- NOTE | 2022-08-24 | NUR ---
PT LAYING IN BED WITH NASAL CANNULA IN [place]. PT RESTING AND CALM AT THIS TIME. NO S/S OF DISTRESS. DAUGHTER AT BEDSIDE WITH PT. CALL LIGHT WITHIN REACH AND SAFETY PRECAUTIONS IN PLACE.
--- NOTE | 2022-08-24 04:00 | NUR ---
PT IN BED SLEEPING. DAUGHTER AT BEDSIDE. NO S/S OF DISTRESS. CALL LIGHT WIHTIN REACH AND SAFETY PRECAUTIONS IN PLACE.
--- NOTE | 2022-08-24 08:00 | NUR ---
ASSUMED CARE OF PT. PT NOT ORIENTED. RESPONDING ONLY TO STIMULI. ABLE TO FOLLOW SIMPLE COMMANDS SUCH OPEN MOUTH, OPEN EYES. PT BREATHING RAPIDLY. HR ELEVATED AT 100-115. NOTIFIED MD AND NURSE PRACTITIONER. BUN ALSO ELEVATED. PT WITH TAI, PUTTING MINIMAL OUTPUT, BROWN URINE WITH SEDIMENT. ORAL CARE PROVIDED, PT REPOSITIONED. PLAN OF CARE DISCUSSED WITH DAUGHTER AT BEDSIDE.
[2022-08-24 08:07] LABS: HEMATOCRIT 39.5 % (37.0-47.0); HEMOGLOBIN 12.5 g/dl (12.0-16.0); MEAN CELL VOLUME 91.2 fL CALC (80.0-100.0); MEAN CORPUSCULAR HGB 28.9 pG CALC (26.0-32.0); MEAN CORPUSCULAR HGB CONC 31.6 g/dL CAL (32.0-36.0); RED BLOOD COUNT 4.33 mill/uL (4.20-5.60); RED CELL DISTRI WIDTH 19.1 % (11.5-15.5)
[2022-08-24 08:37] LABS: ALBUMIN 3.5 g/dL (3.2-5.0); CREATININE 1.9 mg/dL (0.5-1.0); MAGNESIUM 2.1 mg/dL (1.6-2.3); POTASSIUM 3.2 mmol/l (3.5-5.1); TOTAL PROTEIN 7.6 g/dL (6.3-8.2)
[2022-08-24 08:49] LABS: BILIRUBIN, TOTAL 7.3 mg/dL (0.02-1.3)
--- NOTE | 2022-08-24 12:00 | NUR ---
NO CHANGE FROM PREVIOUS ASSESSMENT. PT WITH NO IMPROVEMENT. ROUNDED ON PT. ORAL CARE PROVIDED. REPOSITIONED. WILL CONTINUE TO MONITOR
--- NOTE | 2022-08-24 16:00 | NUR ---
PT RESTING IN BED. REPOSITIONED. ORAL CARE PROVIDED. CALL LIGHT WITHIN REACH. BED IN LOWEST POSITION. WILL CONTINUE TO MONITOR
--- NOTE | 2022-08-24 21:00 | NUR ---
RECEIVED REPORT FROM NURSE HUTCHINSON PATIENT NON VERBAL RESPONDS TO PAIN, DAUGHTER IN ROOM. ON O2 @ 4LPM VIA NC, EXERTIONAL DYSPNEA NOTED, MORPHINE GIVEM FOR PAIN, DUE CEFEPIME IV GIVEN, TAI CATH DRAINING DARK SARAH URINE, CLOUDY, CALL, WILL REPOSITION PATIENT.
[2022-08-25] VITALS (16 sets, daily range): BP systolic 23–92; BP diastolic 10–60
--- NOTE | 2022-08-25 | NUR ---
PATIENT WAS TURNED AND REPOSITIONED, CURRENTLY RESTING ON RT SIDE, REMAINS ON O2 4LPM, SHALLOW BREATHING NOTED.
--- NOTE | 2022-08-25 02:07 | NUR ---
PATIENT MOANING AND GRIMACING, IV SITE LEAKING NEW IV REINSERTED ON RT FOREARM G 22 DUE MORPHINE GIVEN.
--- NOTE | 2022-08-25 07:41 | NUR ---
REPORT RECEIVED FROM SELENA ESAT
--- NOTE | 2022-08-25 07:45 | NUR ---
PT APPEARS TO BE SLEEPING IN SEMI FOWLERS POSITION, NON-VERBAL AND UNRESPONSIVE WHEN AWAKE;ASSESSMENT COMPLETED;RESPIRATINS SHALLOW ON O2 @ 4L VIA NC;ABDOMEN SOFT ON PALPATION AND HYPOACTIVE IN ALL 4 QUADRANTS;WEAK PEDAL PULSES;SKIN INTACT;TELE MONITORING IN PLACE;TAI CATHETER DRAINING TO GRAVITY WITH EASE, VERY LOW OUTPUT AND REFUSES ANY INTAKE;#22G TO RFA FLUSHED AND PATENT,SITE APPEARS HEALTHY; ALL SAFETY PRECAUTIONS REINFORCED WITH BED IN THE LOWEST POSITION AND CALL LIGHT IN REACH;WILL CONTINUE TO MONITOR
--- NOTE | 2022-08-25 08:30 | NUR ---
PT RESTING IN SEMI FOWLERS POSITION;RESPIRATIONS SHALLOW AND LABORED ON O2;BLOOD PRESSURE LOW, MD AWARE; TAI CATHETER AND TELE MONITORING IN PLACE; COMFORT CARES PROVIDE;FREQUENT ROUNDS MADE.
--- NOTE | 2022-08-25 10:22 | NUR ---
AT BEDSIDE DISCUSSING POC.
--- NOTE | 2022-08-25 12:15 | NUR ---
PT DETERIORATING RATHER QUICKLY. BP LOW 23/11. RESPIRATIONS SHALLOW AND LABORED.TELE MONITORING IN PLACE;FAMILY CALLED AND AT BEDSIDE, AWAITING FOR PATIENTS DAUGHTER TO ARRIVE BEFORE PROVIDING PRN MORPHINE FOR COMFORT PER FAMILY REQUEST;IV SITE AND TAI REMAIN PATENT;CALL LIGHT IN REACH;FREQUENT ROUNDS MADE.
--- NOTE | 2022-08-25 14:31 | NUR ---
PT CURRENT TEMP 100.7. SPOKE TO AND ORDERS FOR TYLENOL 650MG TO BE GIVEN RECTALLY PRN FEVER.
--- NOTE | 2022-08-25 14:57 | NUR ---
PT MEDICATED WITH PRN TYLENOL 650MG MO FOR TEMP OF 100.7, FREQUENT ROUNDS MADE AND FAMILY AT BEDSIDE.
--- NOTE | 2022-08-25 15:50 | NUR ---
PT RESTING IN SEMI FOWLERS POSITION WITH MULTIPLE FAMILY MEMBERS AT BEDSIDE;RESPIRATIONS REMAIN SHALLOW AND LABORED ON O2 @ 4L VIA NC;PT APPEARS UNCONFORTABLE BUT FAMILY REQUESTING TO HOLD OFF ON PRN MORPHINE FOR COMFORT;IV SITE REMAINS PATENT AND TELE MONITORING IN PLACE;TAI CATHETER DRAINING WITH EASE;CURRENT VS BP 86/47, HR 107, TEMP 100. UPDATED ON STATUS; ENCOURAGED TO CALL FOR ASSISTANCE IF NEEDED;FREQUENT ROUNDS MADE.
--- NOTE | 2022-08-25 17:25 | NUR ---
FAMILY REMAINS AT BEDSIDE;RESPIRATIONS REMAIN SHALLOW AND LABORED ON O2 @ 4L VIA NC;PT APPEARS UNCOMFORTABLE, MOVING AND GRIMACING IN BED; FAMILY AGREES AND PT MEDICATED WITH PRN MORPHINE 2MG SLOW IVP FOR PAIN AT THIS TIME;PT ALSO RE-POSITIONED FOR COMFORT;TAI CATHETER REMAINS IN PLACE;CALL LIGHT IN REACH AND FAMILY AT BEDSIDE; FREQUENT ROUNDS MADE.
--- NOTE | 2022-08-25 18:11 | NUR ---
PT APPEARS TO BE MORE COMFORTABLE, FAMILY REMAINS AT BEDSIDE;VS BP 32/12 HR 103 TEMP 98.4;RESPIRATIONS SHALLOW AND LABORED;TELE MONITORING IN PLACE;FREQUENT ROUNDS MADE.
--- NOTE | 2022-08-25 20:00 | NUR ---
RECEIVED REPORT FROM NURSE CARVER, PATIENT RESTING IN BED, HOOKED ON O2 @ 4LPM VIA NC HUMIDIFIED, BREATHING SHALLOW, EXERTIONAL DYSPNEA NOTED, FAMILY IN ROOM, PATIENT SALINE LOCK ON RFA, HOOKED ON TELEMETRY, HYPOACTIVE BOWEL SOUNDS, PATIENT NON VERBAL, RESPONDS TO PAIN STIMULI, WILL CONTINE TO MONITOR.
--- NOTE | 2022-08-25 23:51 | NUR ---
CALLED DR. ETIENNE PATIENTS INCREASED IN MOUTH SECRETION BUT UNABLE TO COUGH OUT, NEW ORDER MADE SENT TO PHARMACY.
[2022-08-26] VITALS (9 sets, daily range): BP systolic 31–145; BP diastolic 11–106
--- NOTE | 2022-08-26 04:58 | NUR ---
PATIENT WAS TURNED AND REPOSITIONED, REMAINS ON O2 @ 4LPM VIA NC, DAUGHTER IN ROOM CALL LIGHT IN REACH.
--- NOTE | 2022-08-26 08:02 | NUR ---
BEDSIDE SHIFT REPORT, PT IN BED WITH LABORED BREATHING AND RESTLESNESS, NON-VERBAL AT THIS TIME, ATIVAN GIVEN PER FAMILY'S REQUEST, TELE MONITOR IN PLACE, CALL THOMAS IN REACH, BED LOCKED IN LOWEST POSITION, FAMILY MEMBER AT BEDSIDE, WILL CONTINUE TO MONITOR.
--- NOTE | 2022-08-26 14:50 | NUR ---
0930, RESTLESS AND AGITATED, ROUNDED AND SUGGEST TO CONTACT FAMILY FOR APPROVAL OF COMFORT MEASURES, MORPINE IV GIVE AND RESTLESNESS DECREASED, WILL CONTINUE TO MONITOR. RESPIRATIONS SHALLOW WITH GROSS SECRETIONS, SUCTIONED FREQUENTLY BUT SECRETIONS STILL ACUMULATING AND PARTIALLY OBSTRUCTING BREATHING, WILL CONTINUE TO MONITOR.
--- NOTE | 2022-08-26 15:31 | NUR ---
PT STOPPED BREATHING, NO PULSE PALPATED, MEDICAL LABORATORY TECHNOLOGIST HERE ASSESSING, HEART RATE STILL READING IN 40'S POSSIBLY DUE TO PACEMAKER. MEDICAL LABORATORY TECHNOLOGIST INFORMED MD, FAMILY NOTIFIED AND ARRIVED SHORTLY AFTER COMPLETELY NON-RESPONSIVE AND NOT BREATHING.
--- NOTE | 2022-08-26 17:02 | NUR ---
FAMILY DOES NOT HAVE A HOME AT THIS TIME BUT SAID THEY WILL INFORM US SOON THEY MAKE ARRANGEMENTS WITH ONE.
--- NOTE | 2022-08-26 18:00 | NUR ---
FAMILY FURNISHED SELECTED HOME. MELANIA FROM [facility] CALLED FOR INFORMATION, ALL PERTINENT INFO FURNISHED, FAMILIES IN ROOM GRIEVING AT THIS TIME.
--- NOTE | 2022-08-26 19:10 | NUR ---
[facility] HAS ALREADY LEFT FACILITY, ADVISED HOME STAFF IS INROUTE AT THIS TIME.
--- NOTE | 2022-08-26 19:54 | NUR ---
[facility] JUST RECEIVED BODY AND TRANSPORTED OFF UNIT VIA GOURNEY, DOCUMENTS SIGNED AND COPY GIVEN TO TRANSPORTER.
--- NOTE | 2022-08-26 19:55 | NUR ---
Discharge instructions given. Patient verbalizes understanding of same. Discharged in condition via to with . All belongings sent with pt. PT , TRANSPORTED BY E STAFF.
== END 2022-08-26 19:55 | disposition expired | DRG 291 ==
LOC: ED 02:43 → ED-I 04:50 → ED 05:14 → MS2 05:15
PROVIDERS: ADMIT Internal Medicine; ATTEND Internal Medicine
PROC: 0T9B70Z Drainage of Bladder with Drainage Device, Via Natural or Artificial Opening (ICD-10-PCS; principal; 2022-08-20)
DX: I13.0 Hypertensive heart and chronic kidney disease with heart failure and stage 1 through stage 4 chronic kidney disease, or unspecified chronic kidney disease (principal); I50.23 Acute on chronic systolic (congestive) heart failure; J96.21 Acute and chronic respiratory failure with hypoxia; R64 Cachexia; N18.9 Chronic kidney disease, unspecified; I42.8 Other cardiomyopathies; I48.91 Unspecified atrial fibrillation; R62.7 Adult failure to thrive; I95.9 Hypotension, unspecified; E87.6 Hypokalemia; I46.2 Cardiac arrest due to underlying cardiac condition; E16.2 Hypoglycemia, unspecified; F41.1 Generalized anxiety disorder; K21.9 Gastro-esophageal reflux disease without esophagitis; Z51.5 Encounter for palliative care; Z66 Do not resuscitate; Z95.810 Presence of automatic (implantable) cardiac defibrillator; Z86.73 Personal history of transient ischemic attack (TIA), and cerebral infarction without residual deficits
CPT/HCPCS: J0692; J2060